=== PATIENT | female | born 1995 | race Caucasian/White ===

== ENCOUNTER 2017-01-06 21:40 | Emergency (ER) | payer SELFPAY ==
[~2017-01-06] VITALS: Ht 157.5 cm; Wt 63.5 kg
[~2017-01-06 21:40] MED LIST: AGM875T PO; PSEU120T50 PO
--- NOTE | 2017-01-06 22:53 | ED EENT ---
History of Present Illness General Chief Complaint: Skin/Wound Problems Stated Complaint: SORE THROAT/ 6 WEEKS Nursing Triage Note: PT TO ED 6 W/ C/O SORE THROAT ONSET LAST NOC. REPORTS WAS TAKING CARE OF A FAMILY MEMBERS CHILD RECENTLY THAT HAD BEEN DX W/ HAND FOOT ET MOUTH. PT ALSO REPORTS SHE IS 6WKS ET HAVING CRAMPING Source: patient Exam Limitations: no limitations (KAYLA AVERY MD) History of Present Illness Time seen by provider: 21:56 (KAYLA AVERY MD) Initial Comments Sherin Casarez is a 21 year old female presenting to the ED for a sore throat. The pain started last night. It woke her up and she was able to drink some water and go back to sleep, but it was still present this morning. It is more on the right side than the left. It hurts all the time and more to swallow food or saliva, but is slightly better when she swallows liquid so she has eaten less than usual today but has continued to drink water. She watched a nephew with hand foot and mouth disease last night, denies other sick contacts. She was treated for strep throat about 2 months ago and symptoms resolved completely. She denies cough, congestion, headache, or shortness of breath. She reports being , , gestational age 5 and 6/7 by LMP of 11/26/16, has an appointment to establish care with Dr. Gutierrez in 3 weeks. She has had nausea related to the but it has not worsened recently. Her cramping has been slightly worse today and she is concerned about it. She has been constipated. (CIRILO SLAUGHTER) Allergies and Home Medications Allergies Coded Allergies: No Known Drug Allergies (Unverified , 04/26/14) Home Medications Amoxicillin 500 Mg Tablet, 1,000 MG PO BID, #40 Prescribed by: KAYLA VILLALPANDO on 01/07/17 0035 [id number]/Iron Fumarate/FA/Dss 1 Each Tablet, 1 EACH PO, (Reported) Polyethylene Glycol 3350 119 Gm Powder, 17 GM PO BID PRN for CONSTIPATION-1ST LINE, #1 Prescribed by: KAYLA VILLALPANDO on 01/07/17 0039 Review of Systems Constitutional: no symptoms reported, No chills, No fever Eyes: No Symptoms Reported Ears: No Symptoms Reported, Denies Pain Nose: no symptoms reported, denies congestion (denies runny nose) Mouth: no symptoms reported, denies pain Throat: pain (right side pain greater than left), painful swallowing, denies difficulty with fluids Respiratory: no symptoms reported, No cough, No dyspnea on exertion, No short of breath Cardiovascular: no symptoms reported, No chest pain Gastrointestinal: No abdominal pain, constipation, No diarrhea, nausea ( attributes to , no acute worsening), No vomiting, other (lower abdominal cramping she associates with , worse today) : Yes LMP: Nov 26, 2016 Musculoskeletal: no symptoms reported Skin: no symptoms reported Neurological: No Symptoms Reported Hematologic/Lymphatic: No Symptoms Reported Immunological/Allergic: no symptoms reported Other denies pain or burning with urination (CIRILO SLAUGHTER) Past Skmntge-Zrxeue-Nrrfgz Hx Patient Social History Alcohol Use: Denies Use Recreational Drug Use: No Smoking Status: Never a Smoker Recent Foreign Travel: No Contact w/Someone Who Travel: No Recent Infectious Disease Expo: No Recent Hopitalizations: No Physical Abuse: No Sexual Abuse: No Mistreated: No Fear: No (KAYLA AVERY MD) Surgeries History of Surgeries: No (KAYLA AVERY MD) Respiratory History of Respiratory Disorde: No (KAYLA AVERY MD) Cardiovascular History of Cardiac Disorders: No (KAYLA AVERY MD) Neurological History of Neurological Disord: No (KAYLA AVERY MD) Reproductive System Hx : 1 Hx Para: 0 Hx Reproductive Disorders: No (KAYLA AVERY MD) Gastrointestinal History of Gastrointestinal Di: No (KAYLA AVERY MD) Musculoskeletal History of Musculoskeletal Dis: No (KAYLA AVERY MD) Endocrine History of Endocrine Disorders: No (KAYLA AVERY MD) Cancer History of Cancer: No (KAYLA AVERY MD) Psychosocial History of Psychiatric Problem: No Suicide Risk Score: 0 (KAYLA AVERY MD) Integumentary History of Skin or Integumenta: No (KAYLA AVERY MD) Blood Transfusions History of Blood Disorders: No Adverse Reaction to a Blood Tr: No (KAYLA AVERY MD) Family Medical History Significant Family History: No Pertinent Family Hx (denies history of diabetes , heart disease, hypertension in mother, father, sister) (CIRILO SLAUGHTER) Physical Exam Vital Signs Vital Sign - Last 12Hours 01/06/17 21:55 Temp 98.2 Pulse 77 Resp 20 B/P (MAP) 124/65 Pulse Ox 98 O2 Delivery Room Air (CIRILO SLAUGHTER) General Appearance: WD/WN, no apparent distress Eyes: bilateral eye normal inspection, bilateral eye PERRL, bilateral eye EOMI Ears: bilateral ear auricle normal, bilateral ear canal normal, bilateral ear TM normal Nose: normal inspection Mouth/Throat: No tonsillar exudate, tonsillar swelling Cardiovascular: regular rate, rhythm, no gallop, no JVD, no murmur Respiratory: lungs clear, normal breath sounds, no respiratory distress, no accessory muscle use Neurologic/Psychiatric: alert, normal mood/affect, oriented x 3 Skin: normal color, warm/dry (CIRILO SLAUGHTER) Progress/Results/Core Measures Results/Orders Lab Results Laboratory Tests Test 01/06/17 22:09 Range/Units Group A Streptococcus Screen NEGATIVE NEGATIVE (CIRILO SLAUGHTER) Vital Signs/I&O Vital Sign - Last 12Hours 01/06/17 21:55 Temp 98.2 Pulse 77 Resp 20 B/P (MAP) 124/65 Pulse Ox 98 O2 Delivery Room Air (CIRILO SLAUGHTER) Blood Pressure Mean: 84 Progress Note : Progress Note I have interviewed, seen, and examined this patient along with Cirilo Ervin, GILMER. I agree with GILMER history, exam, and assessment. On my exam patient was found to have a soft abdomen with normal bowel sounds. She had mild tenderness in the suprapubic and adnexal regions. She denies any vaginal bleeding or unusual discharge. She denies dysuria or hematuria. She has no concern for possible STI's. Ultrasound was not pursued at this time as her pain was mild in nature, she is less than 6 weeks gestational age, and she denied vaginal bleeding. Patient does admit to being constipated. MiraLAX was prescribed. UA was obtained and demonstrated no evidence of urinary tract infection. Oropharynx did demonstrate some erythema and some palatal petechiae. (KAYLA AVERY MD) Departure Impression Impression: Primary Impression: Pharyngitis Qualified Codes: J02.9 - Acute pharyngitis, unspecified Additional Impressions: Pelvic pain affecting Qualified Codes: O26.891 - Other specified related conditions, first trimester; R10.2 - Pelvic and perineal pain Constipation Qualified Codes: K59.00 - Constipation, unspecified Disposition: HOME, SELF-CARE Condition: Improved Departure-Patient Inst. Decision time for Depature: 00:00 (KAYLA AVERY MD) Referrals: NO,LOCAL PHYSICIAN (PCP/Family) Primary Care Physician Patient Instructions: Acute Abdomen (Belly Pain) Add. Discharge Instructions: Drink plenty of clear liquids. Eat a diet high in fruits, vegetables, and whole grains. Avoid excessive meats, cheeses, and processed foods as they may worsen your constipation. Return to care promptly if your symptoms worsen or if he develops new symptoms such as fever, vaginal discharge, or vaginal bleeding. Contact your obstetrical provider to inform them of your discomfort and ask for a sooner appointment. You may use MiraLAX (polyethylene glycol) for constipation once or twice daily. Fill the cap to the line and dissolve the powder in about 8 ounces of water or juice. You may contact your primary care provider or the emergency room on Sunday afternoon to review the throat culture results. If the results are positive, start the antibiotic as prescribed. If you take the antibiotic, replace your toothbrush and any other oral instruments about 5 days after starting antibiotics. All discharge instructions reviewed with patient and/or family. Voiced understanding. Scripts Polyethylene Glycol 3350 (Miralax) 119 Gm Powder 17 GM PO BID Y for CONSTIPATION-1ST LINE, #1 EA Prov: KAYLA AVERY MD 01/07/17 Amoxicillin (Amoxicillin) 500 Mg Tablet 1000 MG PO BID, #40 TAB Prov: KAYLA AVERY MD 01/07/17 Copy Copies To 1: SHAILESH GUTIERREZ MD, JOSHUA T MD Jan 06, 2017 22:53 CIRILO SLAUGHTER Jan 06, 2017 23:10
[2017-01-06] MEDS ORDERED: PREN-53 PO (23:25)
[2017-01-06 23:56] LABS: BILIRUBIN,URINE NEGATIVE (NEGATIVE); KETONES,URINE NEGATIVE (NEGATIVE); LEUKOCYTE ESTERASE ,URINE NEGATIVE (NEGATIVE); NITRITE,URINE NEGATIVE (NEGATIVE); PH,URINE 7 (5-9); PROTEIN,URINE NEGATIVE (NEGATIVE); UROBILINOGEN,URINE NORMAL (NORMAL)
[2017-01-07] MEDS ORDERED: AMOX500T2 PO (00:35)
[2017-01-07 00:39] VITALS: BP 0/0
[2017-01-07] MEDS ORDERED: POLY119P5 PO (00:39)
== END 2017-01-07 00:39 | disposition home or self-care (01) ==
LOC: EDUNIT# 21:40 → ER 21:42
DX: O99.511 Diseases of the respiratory system complicating pregnancy, first trimester (principal); J02.9 Acute pharyngitis, unspecified; O26.891 Other specified pregnancy related conditions, first trimester; R10.2 Pelvic and perineal pain; O99.611 Diseases of the digestive system complicating pregnancy, first trimester; K59.00 Constipation, unspecified; Z3A.01 Less than 8 weeks gestation of pregnancy
CPT/HCPCS: 81000; 84703; 87430; 99282

== ENCOUNTER → 2017-01-10 | Outpatient (CLI) | payer SELFPAY ==
[~2017-01-10] MED LIST changes: +AMOX500T2 PO; +POLY119P5 PO; +PREN-53 PO
--- NOTE | 2017-01-10 17:02 | Diagnostic Imaging Report ---
US OB<14 WKS SNGLE W/TRANSVAG INDICATION: Left pelvic pain with known left pelvic kidney. TECHNIQUE: Grayscale and color Doppler imaging of the pelvis was performed. COMPARISON: None available. FINDINGS: There is a normal gestational sac appropriately positioned at the level of the uterine fundus. An embryo is present within the gestational sac, and a heart rate of 128 beats per minute is noted. Based on crown-rump length, the estimated gestational age is 6 weeks and 4 days. Left lower quadrant pelvic kidney is present. There is no hydronephrosis or shadowing echogenic calculi. IMPRESSION: 1. Single live early intrauterine . 2. Left pelvic kidney without hydronephrosis or shadowing calculi. Dictated by: Dictated on workstation # [id number]
== END ==
LOC: RAD 16:24
PROVIDERS: ATTEND Family Medicine
DX: O26.891 Other specified pregnancy related conditions, first trimester (principal); R10.2 Pelvic and perineal pain; Z3A.01 Less than 8 weeks gestation of pregnancy
CPT/HCPCS: 76801; 76817

== ENCOUNTER 2017-02-13 11:08 | Emergency (ER) | payer MEDICAID ==
[~2017-02-13] VITALS: Ht 157.5 cm; Wt 64.4 kg
--- NOTE | 2017-02-13 11:26 | ED General ---
General Stated Complaint: CHEST DISCOMFORT,N/V, 11WKS PG Source of Information: Patient Exam Limitations: No Limitations History of Present Illness Time Seen by Provider: 11:23 Initial Comments To ER with reports of central chest tightness that awakened her from sleep during the night last night was associated with a little shortness of breath. Her chest discomfort is worsened by deep breathing. She's recently had a sore throat a few days ago which resolved on its own. Today she did start a nonproductive cough. She is 11 weeks . She also has nausea and vomiting and is concerned about dehydration. She is a nonsmoker. She has no personal or family history of DVT. She has no unilateral leg swelling. She denies any abdominal pain, cramping or vaginal bleeding or discharge. She did have an ultrasound at 6 weeks that confirmed intrauterine . Timing/Duration: 1-2 Days Severity: Moderate Associated Systoms: Cough, No Fever/Chills, Nausea/Vomiting Allergies and Home Medications Allergies Coded Allergies: No Known Drug Allergies (Unverified , 04/26/14) Home Medications Amoxicillin 500 Mg Tablet, 1,000 MG PO BID, #40 Prescribed by: KAYLA VILLALPANDO on 01/07/17 0035 Doxylamine/Pyridoxine HCl 1 Each Tablet.dr, 2 EACH PO HS, #30 Prescribed by: KHOA RUELAS on 02/13/17 1236 Hvq171/Iron Fumarate/FA/Dss 1 Each Tablet, 1 EACH PO, (Reported) Polyethylene Glycol 3350 119 Gm Powder, 17 GM PO BID PRN for CONSTIPATION-1ST LINE, #1 Prescribed by: KAYLA VILLALPANDO on 01/07/17 0039 Constitutional: see HPI EENTM: see HPI Respiratory: no symptoms reported Cardiovascular: no symptoms reported Gastrointestinal: nausea Genitourinary: no symptoms reported Musculoskeletal: no symptoms reported Skin: no symptoms reported Psychiatric/Neurological: No Symptoms Reported Hematologic/Lymphatic: No Symptoms Reported (I did) Past Hqdwmfj-Eprtgt-Ucsmwc Hx Patient Social History Recent Foreign Travel: No Contact w/Someone Who Travel: No Recent Hopitalizations: No Surgeries History of Surgeries: No Respiratory History of Respiratory Disorde: No Cardiovascular History of Cardiac Disorders: No Neurological History of Neurological Disord: No Reproductive System Hx Reproductive Disorders: No Gastrointestinal History of Gastrointestinal Di: No Musculoskeletal History of Musculoskeletal Dis: No Endocrine History of Endocrine Disorders: No Cancer History of Cancer: No Psychosocial History of Psychiatric Problem: No Integumentary History of Skin or Integumenta: No Blood Transfusions History of Blood Disorders: No Adverse Reaction to a Blood Tr: No Family Medical History Significant Family History: No Pertinent Family Hx Physical Exam Vital Signs Vital Sign - Last 12Hours 02/13/17 11:16 Temp 99.5 Pulse 104 Resp 18 B/P (MAP) 132/80 Pulse Ox 97 O2 Delivery Room Air Capillary Refill : General Appearance: No Apparent Distress, WD/WN Eyes: Bilateral Eye Normal Inspection, Bilateral Eye PERRL, Bilateral Eye EOMI HEENT: PERRL/EOMI, TMs Normal, Normal ENT Inspection, Pharynx Normal Neck: Full Range of Motion, Normal Inspection, Non Tender Respiratory: Chest Non Tender, Lungs Clear, Normal Breath Sounds, No Accessory Muscle Use, No Crackles, No Pleural Rub, No Wheezing Cardiovascular: Regular Rate, Rhythm, Normal Peripheral Pulses Gastrointestinal: Normal Bowel Sounds, Non Tender, Soft Extremity: Normal Capillary Refill, Normal Inspection Neurologic/Psychiatric: Alert, Oriented x3, No Motor/Sensory Deficits Skin: Normal Color, Warm/Dry Progress/Results/Core Measures Results/Orders Lab Results Laboratory Tests Test 02/13/17 11:25 02/13/17 11:45 Range/Units Urine Color YELLOW Urine Clarity CLEAR Urine pH 7 5-9 Urine Specific [place] 1.010 L 1.016-1.022 Urine Protein NEGATIVE NEGATIVE Urine Glucose (UA) NEGATIVE NEGATIVE Urine Ketones 3+ H NEGATIVE Urine Nitrite NEGATIVE NEGATIVE Urine Bilirubin NEGATIVE NEGATIVE Urine Urobilinogen 1 NORMAL MG/DL Urine Leukocyte Esterase NEGATIVE NEGATIVE Urine RBC (Auto) 1+ H NEGATIVE Urine RBC NONE /HPF Urine WBC 0-2 /HPF Urine Squamous Epithelial Cells 10-25 H /HPF Urine Crystals NONE /LPF Urine Bacteria TRACE /HPF Urine Casts NONE /LPF Urine Mucus NEGATIVE /LPF Urine Culture Indicated NO White Blood Count 11.5 H 4.3-11.0 10^3/uL Red Blood Count 3.91 L 4.35-5.85 10^6/uL Hemoglobin 11.2 L 11.5-16.0 G/DL Hematocrit 33 L 35-52 % Mean Corpuscular Volume 84 80-99 FL Mean Corpuscular Hemoglobin 29 25-34 PG Mean Corpuscular Hemoglobin Concent 34 32-36 G/DL Red Cell Distribution Width 13.5 10.0-14.5 % Platelet Count 220 130-400 10^3/uL Mean Platelet Volume 11.3 H 7.4-10.4 FL Neutrophils (%) (Auto) 81 H 42-75 % Lymphocytes (%) (Auto) 9 L 12-44 % Monocytes (%) (Auto) 10 0-12 % Eosinophils (%) (Auto) 0 0-10 % Basophils (%) (Auto) 0 0-10 % Neutrophils # (Auto) 9.4 H 1.8-7.8 X 10^3 Lymphocytes # (Auto) 1.0 1.0-4.0 X 10^3 Monocytes # (Auto) 1.1 H 0.0-1.0 X 10^3 Eosinophils # (Auto) 0.0 0.0-0.3 10^3/uL Basophils # (Auto) 0.0 0.0-0.1 10^3/uL Sodium Level 134 L 135-145 MMOL/L Potassium Level 3.3 L 3.6-5.0 MMOL/L Chloride Level 104 98-107 MMOL/L Carbon Dioxide Level 21 21-32 MMOL/L Anion Gap 9 5-14 MMOL/L Blood Urea Nitrogen 5 L 7-18 MG/DL Creatinine 0.55 L 0.60-1.30 MG/DL Estimat Glomerular Filtration Rate > 60 BUN/Creatinine Ratio 9 Glucose Level 100 70-105 MG/DL Calcium Level 8.8 8.5-10.1 MG/DL Total Bilirubin 0.3 0.1-1.0 MG/DL Aspartate Amino Transf (AST/SGOT) 12 5-34 U/L Alanine Aminotransferase (ALT/SGPT) 10 0-55 U/L Alkaline Phosphatase 51 40-136 U/L Total Protein 6.7 6.4-8.2 GM/DL Albumin 3.8 3.2-4.5 GM/DL Lipase < 4 L 8-78 U/L My Orders Orders - KHOA RUELAS APRN Cbc With Automated Diff (02/13/17 11:22) Comprehensive Metabolic Panel (02/13/17 11:22) Lipase (02/13/17 11:22) Ua Culture If Indicated (02/13/17 11:22) Saline Lock/Iv-Start (02/13/17 11:22) Lactated Ringers (Lr 1000 Ml Iv Solution (02/13/17 11:30) Antacid Suspension (Mylanta Suspension (02/13/17 11:30) Lidocaine 2% Viscous 15 Ml (Xylocaine Vi (02/13/17 11:30) Ondansetron Injection (Zofran Injectio (02/13/17 11:30) General/Regular (02/13/17 Lunch) Medications Given in ED Current Medications Medications Dose Ordered Sig/Vernell Route Start Time Stop Time Status Last Admin Dose Admin Al Hydrox/Mg Hydrox/Simethicone 30 ml ONCE ONCE PO 02/13/17 11:30 02/13/17 11:31 DC 02/13/17 11:30 30 ML Lidocaine HCl 15 ml ONCE ONCE PO 02/13/17 11:30 02/13/17 11:31 DC 02/13/17 11:30 15 ML Ondansetron HCl 8 mg ONCE ONCE IVP 02/13/17 11:30 02/13/17 11:31 DC 02/13/17 11:40 8 MG Vital Signs/I&O Vital Sign - Last 12Hours 02/13/17 11:16 Temp 99.5 Pulse 104 Resp 18 B/P (MAP) 132/80 Pulse Ox 97 O2 Delivery Room Air Departure Communication (Admissions) Progress Notes 1212-nausea is gone and she would like something to eat. 1237- Dr. Bobby did bedside ultrasound cardiac activity at 165 bpm intrauterine Impression Impression: Primary Impression: Nausea and vomiting during Disposition: 01 HOME, SELF-CARE Condition: Stable Departure-Patient Inst. Decision time for Depature: 12:12 Referrals: SHAILESH GUTIERREZ MD (PCP/Family) Primary Care Physician Patient Instructions: NO INSTRUCTIONS GIVEN Add. Discharge Instructions: 1. Drink plenty of fluids 2. Follow-up with your transitional care manager this week 3. Return to ER for any concerns 4. Pedialyte is a great choice to rehydrate even though it tastes horrible Scripts Doxylamine/Pyridoxine HCl (Lis Russell 10-10 mg Tablet) 1 Each Tablet. 2 EACH PO HS, #30 TAB Prov: KHOA RUELAS APRN 02/13/17 Work/School Note: Work Release Form Date Seen in the Emergency Department: Feb 13, 2017 Return to Work: Feb 15, 2017 Copy Copies To 1: SHAILESH GUTIERREZ MD, PETER J APRN Feb 13, 2017 11:25
[2017-02-13] MEDS ORDERED: ONDANSETRON 4 MG/2 ML (SDV) Z0FRAN IVP ONE (11:30)
[2017-02-13] MEDS ORDERED: ANTACID SUSP 30 ML UDC (MYLANTA) PO ONE (11:30)
[2017-02-13] MEDS ORDERED: LIDOCAINE 2% VISCOUS 15 ML UDC PO ONE (11:30)
[2017-02-13 11:31] LABS: BILIRUBIN,URINE NEGATIVE (NEGATIVE); KETONES,URINE 3+ (NEGATIVE); LEUKOCYTE ESTERASE ,URINE NEGATIVE (NEGATIVE); NITRITE,URINE NEGATIVE (NEGATIVE); PH,URINE 7 (5-9); PROTEIN,URINE NEGATIVE (NEGATIVE); UROBILINOGEN,URINE 1 MG/DL (NORMAL)
[2017-02-13 11:38] LABS: WBC,URINE 0-2 /HPF
[2017-02-13] MEDS: LACTATED RINGERS 1,000 ML IV SCH ×2 (11:40→11:46)
[2017-02-13 11:50] LABS: BASOPHILS % (AUTO) 0 % (0-10); EOSINOPHILS % (AUTO) 0 % (0-10); LYMPHOCYTES % (AUTO) 9 % (12-44); MEAN CORPUSCULAR HEMOGLOBIN 29 PG (25-34); MEAN CORPUSCULAR HGB CONC 34 G/DL (32-36); MEAN CORPUSCULAR VOLUME 84 FL (80-99); MEAN PLATELET VOLUME 11.3 FL (7.4-10.4); MONOCYTES # (AUTO) 1.1 X 10^3 (0.0-1.0); MONOCYTES % (AUTO) 10 % (0-12); NEUTROPHILS # (AUTO) 9.4 X 10^3 (1.8-7.8); NEUTROPHILS % (AUTO) 81 % (42-75); PLATELET COUNT 220 10^3/uL (130-400); RED BLOOD COUNT 3.91 10^6/uL (4.35-5.85); RED CELL DISTRIBUTION WIDTH 13.5 % (10.0-14.5); WHITE BLOOD COUNT 11.5 10^3/uL (4.3-11.0)
[2017-02-13 12:12] LABS: ALANINE AMINOTRANSFERASE 10 U/L (0-55); ALBUMIN 3.8 GM/DL (3.2-4.5); ANION GAP 9 MMOL/L (5-14); ASPARTATE AMINO TRANSFERASE 12 U/L (5-34); BILIRUBIN,TOTAL 0.3 MG/DL (0.1-1.0); BLOOD UREA NITROGEN 5 MG/DL (7-18); BUN/CREATININE RATIO 9; CALCIUM 8.8 MG/DL (8.5-10.1); CARBON DIOXIDE 21 MMOL/L (21-32); CHLORIDE 104 MMOL/L (98-107); CREATININE SERUM 0.55 MG/DL (0.60-1.30); GFR ESTIMATED > 60; GLUCOSE 100 MG/DL (70-105); LIPASE < 4 U/L (8-78); POTASSIUM 3.3 MMOL/L (3.6-5.0); SODIUM 134 MMOL/L (135-145); TOTAL PROTEIN 6.7 GM/DL (6.4-8.2)
[2017-02-13] MEDS ORDERED: DOXY1TAB3 PO (12:36)
[2017-02-13 12:43] VITALS: BP 123/75
== END 2017-02-13 12:49 | disposition home or self-care (01) ==
LOC: EDUNIT# 11:08 → ER 11:11
DX: O21.9 Vomiting of pregnancy, unspecified (principal); Z3A.11 11 weeks gestation of pregnancy
CPT/HCPCS: 36415; 80053; 81000; 83690; 85025

== ENCOUNTER → 2017-04-18 | Outpatient (CLI) | payer MEDICAID ==
[~2017-04-18] MED LIST changes: +DOXY1TAB3 PO
--- NOTE | 2017-04-18 15:59 | Diagnostic Imaging Report ---
INDICATION: survey. TECHNIQUE: Multiple real-time grayscale images were obtained over the gravid uterus. COMPARISON: 01/10/2017. FINDINGS: heart rate is 138 beats per minute. The placenta is anterior. No placenta previa. The cervix is 4.3 cm in length and is closed. Adequate amniotic fluid is seen. The maternal adnexa are obscured by the gravid uterus. No ventriculomegaly. The posterior fossa appears unremarkable. The stomach, cord insertion, spine, bladder, three-vessel cord, and the kidneys appear unremarkable with no definite abnormality. The four-chamber view is not well seen due to position. Biometrical measurements are as follows: Biparietal 4.74 cm, age 20 weeks 3 days. Head circumference 18.08 cm, age 20 weeks 4 days. Abdominal circumference 15.16 cm, age 20 weeks 3 days. Femur length 3.42 cm, age 20 weeks 6 days. Sonographic estimate age: 20 weeks 4 days. Sonographic estimated date of delivery: 09/01/2017. Estimated Weight: 361 gm (+/- 53 gm). LMP percentile: 43%. heart rate: 138 beats per minute. number: 1 of 1. IMPRESSION: The four-chamber view is not well seen. Followup within two weeks is suggested to reevaluate. Dictated by: Dictated on workstation # [id number]
== END ==
LOC: RAD 09:55
PROVIDERS: ATTEND Obstetrics & Gynecology
DX: O99.89 Other specified diseases and conditions complicating pregnancy, childbirth and the puerperium (principal); Q63.2 Ectopic kidney; Z3A.20 20 weeks gestation of pregnancy
CPT/HCPCS: 76805

== ENCOUNTER 2017-07-29 17:09 | Outpatient (CLI) | payer MEDICAID ==
[~2017-07-29] VITALS: Ht 157.5 cm; Wt 81.2 kg
[2017-07-29 17:20] VITALS: BP 125/67
[2017-07-29 17:31] LABS: BILIRUBIN,URINE NEGATIVE (NEGATIVE); CLARITY,URINE SLIGHTLY CLOUDY; COLOR,URINE YELLOW; GLUCOSE, URINE (UA) NEGATIVE (NEGATIVE); KETONES,URINE NEGATIVE (NEGATIVE); LEUKOCYTE ESTERASE ,URINE 1+ (NEGATIVE); NITRITE,URINE NEGATIVE (NEGATIVE); PH,URINE 7 (5-9); PROTEIN,URINE NEGATIVE (NEGATIVE); UROBILINOGEN,URINE NORMAL (NORMAL)
[2017-07-29 17:38] LABS: AMORPHOUS SEDIMENT,UR FEW AMOR URATES /LPF; BACTERIA,URINE TRACE /HPF; SQUAMOUS EPITHELIAL CELL,UR >50 /HPF
[2017-07-29 17:55] VITALS: BP 112/60
--- NOTE | 2017-07-30 12:13 | Physician Query-Final Dx ---
KERA VELEZ 07/30/17 1213: Clinic Account Progress/Dx Physician Query: Please give diagnosis Date of Service Jul 29, 2017 at 17:09 ENOC TADEO DO 07/30/17 1715: Clinic Account Progress/Dx DIAGNOSIS: Diagnosis 35 week IUP Pelvic pressure LE swelling KERA VELEZ Jul 30, 2017 12:13 ENOC TADEO DO Jul 30, 2017 17:15
== END 2017-07-29 18:08 | disposition home or self-care (01) ==
LOC: WSo 17:09 → LDRP 17:09 → WSo 18:08
PROVIDERS: ATTEND Obstetrics & Gynecology
DX: O99.89 Other specified diseases and conditions complicating pregnancy, childbirth and the puerperium (principal); R10.2 Pelvic and perineal pain; M79.89 Other specified soft tissue disorders; Z3A.35 35 weeks gestation of pregnancy
CPT/HCPCS: 81000; 87088; 99212

== ENCOUNTER 2017-08-20 16:59 | Inpatient (IN) | payer MEDICAID ==
[~2017-08-20] VITALS: Ht 157.5 cm; Wt 85.0 kg
[2017-08-20] VITALS (8 sets, daily range): BP systolic 134–161; BP diastolic 76–93
[2017-08-20 18:07] LABS: BASOPHILS % (AUTO) 0 % (0-10); EOSINOPHILS # (AUTO) 0.2 10^3/uL (0.0-0.3); EOSINOPHILS % (AUTO) 2 % (0-10); HEMATOCRIT 31 % (35-52); HEMOGLOBIN 10.4 G/DL (11.5-16.0); LYMPHOCYTES # (AUTO) 1.7 X 10^3 (1.0-4.0); LYMPHOCYTES % (AUTO) 16 % (12-44); MEAN CORPUSCULAR HEMOGLOBIN 27 PG (25-34); MEAN CORPUSCULAR HGB CONC 33 G/DL (32-36); MEAN CORPUSCULAR VOLUME 81 FL (80-99); MEAN PLATELET VOLUME 12.8 FL (7.4-10.4); MONOCYTES # (AUTO) 0.8 X 10^3 (0.0-1.0); MONOCYTES % (AUTO) 7 % (0-12); NEUTROPHILS # (AUTO) 7.9 X 10^3 (1.8-7.8); NEUTROPHILS % (AUTO) 75 % (42-75); PLATELET COUNT 189 10^3/uL (130-400); RED BLOOD COUNT 3.82 10^6/uL (4.35-5.85); RED CELL DISTRIBUTION WIDTH 13.9 % (10.0-14.5); WHITE BLOOD COUNT 10.6 10^3/uL (4.3-11.0)
[2017-08-20 18:22] LABS: ALANINE AMINOTRANSFERASE 9 U/L (0-55); ALBUMIN 3.1 GM/DL (3.2-4.5); ALKALINE PHOSPHATASE 144 U/L (40-136); BILIRUBIN,TOTAL 0.2 MG/DL (0.1-1.0); BUN/CREATININE RATIO 15; CALCIUM 8.7 MG/DL (8.5-10.1); CARBON DIOXIDE 22 MMOL/L (21-32); CHLORIDE 109 MMOL/L (98-107); GFR ESTIMATED > 60; GLUCOSE 74 MG/DL (70-105); SODIUM 139 MMOL/L (135-145); TOTAL PROTEIN 5.6 GM/DL (6.4-8.2); URIC ACID 6.2 MG/DL (2.6-7.2)
[2017-08-20 18:31] LABS: BAND NEUTROPHILS 0 %; BASOPHILS % (MANUAL) 0 %; EOSINOPHILS % (MANUAL) 3 %; LYMPHOCYTES % (MANUAL) 22 %; MONOCYTES % (MANUAL) 14 %; NEUTROPHILS % (MANUAL) 61 %; RBC MORPH NORMAL
[2017-08-20] MEDS ORDERED: D5 LR IV SOLUTION 1,000 ML IV ONE (20:33)
[2017-08-20] MEDS ORDERED: MISOPROSTOL 100 MCG (CYTOTEC) TAB PO ONE (20:45)
--- NOTE | 2017-08-20 20:54 | Diagnostic Imaging Report ---
Exam: Ultrasound OB limited. Date: 08/20/2017. Indication: 22-year-old female, high protein to creatinine ratio. Comparison: 04/18/2017. 01/10/2017. Findings: There is a single living intrauterine . heart rate is identified at 134 beats per minute. The amniotic fluid index is normal and measures 14.0. Estimated weight based on today's ultrasound measurements is 3352 g. The placenta is anterior. The fetus is in cephalic presentation. The biophysical profile score is reported as 4/8 by the ambulatory technologist with 0 out of 2 for breathing and movement. IMPRESSION: 1. biophysical profile score reported by the ambulatory technologist as 4/8. 2. Single living intrauterine . 3. Normal amniotic fluid index. Dictated by: Dictated on workstation # [id number]
[2017-08-20] MEDS: D5 LR IV SOLUTION 1,000 ML IV SCH (21:00)
--- OUTSIDE RECORDS SUMMARY | 2017-08-20 21:17 | XMS REPORT | Continuity of Care Document ---
Author Author [facility] Organization [facility] Address Unknown Phone Unavailable Allergies Active Description Code Type Severity Reaction Onset Reported/Identified Relationship to Patient Clinical Status Yes No Known Drug Allergies [id number] Drug Allergy Unknown N/A 04/26/2014 Medications There is no data. Problems Date Dx Coded Attending Type Code Diagnosis Diagnosed By 11/26/2011 Ot 592.9 URINARY CALCULUS NOS 04/26/2014 Ot 592.9 04/26/2014 Ot 592.9 04/26/2014 KHOA RUELAS APRN Ot 382.9 OTITIS MEDIA NOS 04/26/2014 KHOA RUELAS APRN Ot 388.70 OTALGIA NOS 04/26/2014 Ot 592.9 05/21/2014 Ot 592.9 06/08/2014 Ot 592.9 06/08/2014 Ot 592.9 06/17/2014 Ot 592.9 06/18/2014 Ot 592.9 01/06/2017 Ot 592.9 URINARY CALCULUS NOS 01/07/2017 KAYLA AVERY MD Ot J02.9 ACUTE PHARYNGITIS, UNSPECIFIED 01/07/2017 KAYLA AVERY MD Ot K59.00 CONSTIPATION, UNSPECIFIED 01/07/2017 KAYLA AVERY MD Ot O26.891 OTH RELATED CONDITIONS, FIRST 01/07/2017 KAYLA AVERY MD Ot O99.511 DISEASES OF THE RESP SYS COMP , 01/07/2017 KAYLA AVERY MD Ot O99.611 DISEASES OF THE DGSTV SYS COMP 01/07/2017 KAYLA AVERY MD Ot R10.2 PELVIC AND PERINEAL PAIN 01/07/2017 KAYLA AVERY MD Ot Z3A.01 LESS THAN 8 WEEKS GESTATION OF 01/08/2017 KAYLA AVERY MD Ot J02.9 ACUTE PHARYNGITIS, UNSPECIFIED 01/08/2017 KAYLA AVERY MD Ot K59.00 CONSTIPATION, UNSPECIFIED 01/08/2017 KAYLA AVERY MD Ot O26.891 OT RELATED CONDITIONS, FIRST 01/08/2017 KAYLA AVERY MD Ot O99.511 DISEASES OF THE RESP SYS COMP , 01/08/2017 KAYLA AVERY MD Ot O99.611 DISEASES OF THE DGSTV SYS COMP 01/08/2017 KAYLA AVERY MD Ot R10.2 PELVIC AND PERINEAL PAIN 01/08/2017 KAYLA AVERY MD Ot Z3A.01 LESS THAN 8 WEEKS GESTATION OF 01/16/2017 SHAILESH GUTIERREZ MD Ot O26.891 OT RELATED CONDITIONS, FIRST 01/16/2017 SHAILESH GUTIERREZ MD Ot R10.2 PELVIC AND PERINEAL PAIN 01/16/2017 SHAILESH GUTIERREZ MD Ot Z3A.01 LESS THAN 8 WEEKS GESTATION OF 02/06/2017 Ot 592.9 URINARY CALCULUS NOS 02/06/2017 SHAILESH GUTIERREZ MD Ot O26.891 OT RELATED CONDITIONS, FIRST 02/06/2017 SHAILESH GUTIERREZ MD Ot R10.2 PELVIC AND PERINEAL PAIN 02/06/2017 SHAILESH GUTIERREZ MD Ot Z3A.01 LESS THAN 8 WEEKS GESTATION OF 02/13/2017 Ot 592.9 URINARY CALCULUS NOS 02/13/2017 SHAILESH GUTIERREZ MD Ot O26.891 OT RELATED CONDITIONS, FIRST 02/13/2017 SHAILESH GUTIERREZ MD Ot R10.2 PELVIC AND PERINEAL PAIN 02/13/2017 SHAILESH GUTIERREZ MD Ot Z3A.01 LESS THAN 8 WEEKS GESTATION OF 02/13/2017 KHOA RUELAS APRN Ot O21.9 VOMITING OF , UNSPECIFIED 02/13/2017 KHOA RUELAS APRN Ot R07.89 OTHER CHEST PAIN 02/13/2017 KHOA RUELAS APRN Ot Z3A.11 11 WEEKS GESTATION OF 02/14/2017 SHAILESH GUTIERREZ MD Ot O26.891 OTH RELATED CONDITIONS, FIRST 02/14/2017 SHAILESH GUTIERREZ MD Ot R10.2 PELVIC AND PERINEAL PAIN 02/14/2017 SHAILESH GUTIERREZ MD Ot Z3A.01 LESS THAN 8 WEEKS GESTATION OF 02/14/2017 KHOA RUELAS [employer] TENDER Ot O21.9 VOMITING OF , UNSPECIFIED 02/14/2017 KHOA RUELAS [employer] T[employer] Ot R07.89 OTHER CHEST PAIN 02/14/2017 KHOA RUELAS [employer] T[employer] Ot Z3A.11 11 WEEKS GESTATION OF 02/21/2017 SHAILESH GUTIERREZ MD Ot O26.891 OT RELATED CONDITIONS, FIRST 02/21/2017 SHAILESH GUTIERREZ MD Ot R10.2 PELVIC AND PERINEAL PAIN 02/21/2017 SHAILESH GUTIERREZ MD Ot Z3A.01 LESS THAN 8 WEEKS GESTATION OF 04/14/2017 Ot 592.9 URINARY CALCULUS NOS 04/14/2017 SHAILESH GUTIERREZ MD Ot O26.891 OT RELATED CONDITIONS, FIRST 04/14/2017 SHAILESH GUTIERREZ MD Ot R10.2 PELVIC AND PERINEAL PAIN 04/14/2017 SHAILESH GUTIERREZ MD Ot Z3A.01 LESS THAN 8 WEEKS GESTATION OF 05/02/2017 ENOC TADEO DO Ot O99.89 OT DISEASES AND CONDITIONS COMPL PREG/C 05/02/2017 YAMILETHECH ENOC GANDHI Ot 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 05/02/2017 ENOC TADEO DO Ot Z3A.20 20 WEEKS GESTATION OF 07/29/2017 SHAILESH GUTIERREZ MD Ot O26.891 OT RELATED CONDITIONS, FIRST 07/29/2017 SHAILESH GUTIERREZ MD Ot R10.2 PELVIC AND PERINEAL PAIN 07/29/2017 SHAILESH GUTIERREZ MD Ot Z3A.01 LESS THAN 8 WEEKS GESTATION OF 07/29/2017 ENOC TADEO DO Ot O99.89 OT DISEASES AND CONDITIONS COMPL PREG/C 07/29/2017 YAMILETHECH ENOC GANDHI Ot 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 07/29/2017 ENOC TAEDO DO Ot Z3A.20 20 WEEKS GESTATION OF 07/29/2017 FENECH DOENOC Ot M79.89 OTHER SPECIFIED SOFT TISSUE DISORDERS 07/29/2017 YAMILETHECH ENOC GANDHI Ot O99.89 OTH DISEASES AND CONDITIONS COMPL PREG/C 07/29/2017 YAMILETHECH DOENOC Ot R10.2 PELVIC AND PERINEAL PAIN 07/29/2017 YAMILETHECH EONC GANDHI Ot Z3A.35 35 WEEKS GESTATION OF 07/31/2017 YAMILETHECH ENOC GANDHI Ot M79.89 OTHER SPECIFIED SOFT TISSUE DISORDERS 07/31/2017 YAMILETHECH DOENOC Ot O99.89 OTH DISEASES AND CONDITIONS COMPL PREG/C 07/31/2017 YAMILETHECH DOENOC Ot R10.2 PELVIC AND PERINEAL PAIN 07/31/2017 FENECH DOENOC Ot Z3A.35 35 WEEKS GESTATION OF 07/31/2017 YAMILETHECH ENOC GANDHI Ot M79.89 OTHER SPECIFIED SOFT TISSUE DISORDERS 07/31/2017 YAMILETHECH DOENOC Ot O99.89 OTH DISEASES AND CONDITIONS COMPL PREG/C 07/31/2017 YAMILETHECH ENOC GANDHI Ot R10.2 PELVIC AND PERINEAL PAIN 07/31/2017 YAMILETHECH ENOC GANDHI Ot Z3A.35 35 WEEKS GESTATION OF Procedures There is no data. Results Test Result Range Streptococcus pyogenes antigen detection - 01/06/17 22:09 Streptococcus pyogenes antigen detection NEGATIVE NEGATIVE Bacterial throat culture - 01/06/17 22:09 Bacterial throat culture NBS NRG Urine beta human chorionic gonadotropin (hCG) measurement - 01/06/17 23:41 Urine beta human chorionic gonadotropin (hCG) measurement POSITIVE NEGATIVE Complete urinalysis with reflex to culture - 01/06/17 23:41 Urine color determination YELLOW NRG Urine clarity determination SLIGHTLY CLOUDY NRG Urine pH measurement by test strip 7 5-9 Specific gravity of urine by test strip 1.010 1.016- 1.022 Urine protein assay by test strip, semi-quantitative NEGATIVE NEGATIVE Urine glucose detection by automated test strip NEGATIVE NEGATIVE Erythrocytes detection in urine sediment by light microscopy NEGATIVE NEGATIVE Urine ketones detection by automated test strip NEGATIVE NEGATIVE Urine nitrite detection by test strip NEGATIVE NEGATIVE Urine total bilirubin detection by test strip NEGATIVE NEGATIVE Urine urobilinogen measurement by automated test strip (mass/volume) NORMAL NORMAL Urine leukocyte esterase detection by dipstick NEGATIVE NEGATIVE Automated urine sediment erythrocyte count by microscopy (number/high power field) NONE NRG Automated urine sediment leukocyte count by microscopy (number/high power field ) NONE NRG Bacteria detection in urine sediment by light microscopy NEGATIVE NRG Squamous epithelial cells detection in urine sediment by light microscopy 2-5 NRG Crystals detection in urine sediment by light microscopy NONE NRG Casts detection in urine sediment by light microscopy NONE NRG Mucus detection in urine sediment by light microscopy SMALL NRG Complete urinalysis with reflex to culture NO NRG Complete urinalysis with reflex to culture - 02/13/17 11:25 Urine color determination YELLOW NRG Urine clarity determination CLEAR NRG Urine pH measurement by test strip 7 5-9 Specific gravity of urine by test strip 1.010 1.016- 1.022 Urine protein assay by test strip, semi-quantitative NEGATIVE NEGATIVE Urine glucose detection by automated test strip NEGATIVE NEGATIVE Erythrocytes detection in urine sediment by light microscopy 1+ NEGATIVE Urine ketones detection by automated test strip 3+ NEGATIVE Urine nitrite detection by test strip NEGATIVE NEGATIVE Urine total bilirubin detection by test strip NEGATIVE NEGATIVE Urine urobilinogen measurement by automated test strip (mass/volume) 1 mg/dL NORMAL Urine leukocyte esterase detection by dipstick NEGATIVE NEGATIVE Automated urine sediment erythrocyte count by microscopy (number/high power field) NONE NRG Automated urine sediment leukocyte count by microscopy (number/high power field ) [HPF] NRG Bacteria detection in urine sediment by light microscopy TRACE NRG Squamous epithelial cells detection in urine sediment by light microscopy 10-25 NRG Crystals detection in urine sediment by light microscopy NONE NRG Casts detection in urine sediment by light microscopy NONE NRG Mucus detection in urine sediment by light microscopy NEGATIVE NRG Complete urinalysis with reflex to culture NO NRG Complete blood count (CBC) with automated white blood cell (WBC) differential - 02/13/17 11:45 Blood leukocytes automated count (number/volume) 11.5 10*3/uL 4.3-11.0 Blood erythrocytes automated count (number/volume) 3.91 10*6/uL 4.35-5.85 Venous blood hemoglobin measurement (mass/volume) 11.2 g/dL 11.5-16.0 Blood hematocrit (volume fraction) 33 % 35-52 Automated erythrocyte mean corpuscular volume 84 [foz_us] 80-99 Automated erythrocyte mean corpuscular hemoglobin (mass per erythrocyte) 29 pg 25-34 Automated erythrocyte mean corpuscular hemoglobin concentration measurement ( mass/volume) 34 g/dL 32-36 Automated erythrocyte distribution width ratio 13.5 % 10.0-14.5 Automated blood platelet count (count/volume) 220 10*3/uL 130-400 Automated blood platelet mean volume measurement 11.3 [foz_us] 7.4-10.4 Automated blood neutrophils/100 leukocytes 81 % 42-75 Automated blood lymphocytes/100 leukocytes 9 % 12-44 Blood monocytes/100 leukocytes 10 % 0-12 Automated blood eosinophils/100 leukocytes 0 % 0-10 Automated blood basophils/100 leukocytes 0 % 0-10 Blood neutrophils automated count (number/volume) 9.4 10*3 1.8-7.8 Blood lymphocytes automated count (number/volume) 1.0 10*3 1.0-4.0 Blood monocytes automated count (number/volume) 1.1 10*3 0.0-1.0 Automated eosinophil count 0.0 10*3/uL 0.0-0.3 Automated blood basophil count (count/volume) 0.0 10*3/uL 0.0-0.1 Comprehensive metabolic panel - 02/13/17 11:45 Serum or plasma sodium measurement (moles/volume) 134 mmol/L 135-145 Serum or plasma potassium measurement (moles/volume) 3.3 mmol/L 3.6-5.0 Serum or plasma chloride measurement (moles/volume) 104 mmol/L 98-107 Carbon dioxide 21 mmol/L 21-32 Serum or plasma anion gap determination (moles/volume) 9 mmol/L 5-14 Serum or plasma urea nitrogen measurement (mass/volume) 5 mg/dL 7-18 Serum or plasma creatinine measurement (mass/volume) 0.55 mg/dL 0.60-1.30 Serum or plasma urea nitrogen/creatinine mass ratio 9 NRG Serum or plasma creatinine measurement with calculation of estimated glomerular filtration rate > NRG Serum or plasma glucose measurement (mass/volume) 100 mg/dL 70-105 Serum or plasma calcium measurement (mass/volume) 8.8 mg/dL 8.5-10.1 Serum or plasma total bilirubin measurement (mass/volume) 0.3 mg/dL 0.1-1.0 Serum or plasma alkaline phosphatase measurement (enzymatic activity/volume) 51 U/L 40-136 Serum or plasma aspartate aminotransferase measurement (enzymatic activity/ volume) 12 U/L 5-34 Serum or plasma alanine aminotransferase measurement (enzymatic activity/volume ) 10 U/L 0-55 Serum or plasma protein measurement (mass/volume) 6.7 g/dL 6.4-8.2 Serum or plasma albumin measurement (mass/volume) 3.8 g/dL 3.2-4.5 Lipase - 02/13/17 11:45 Lipase < U/L 8-78 Complete urinalysis with reflex to culture - 07/29/17 17:20 Urine color determination YELLOW NRG Urine clarity determination SLIGHTLY CLOUDY NRG Urine pH measurement by test strip 7 5-9 Specific gravity of urine by test strip 1.010 1.016- 1.022 Urine protein assay by test strip, semi-quantitative NEGATIVE NEGATIVE Urine glucose detection by automated test strip NEGATIVE NEGATIVE Erythrocytes detection in urine sediment by light microscopy NEGATIVE NEGATIVE Urine ketones detection by automated test strip NEGATIVE NEGATIVE Urine nitrite detection by test strip NEGATIVE NEGATIVE Urine total bilirubin detection by test strip NEGATIVE NEGATIVE Urine urobilinogen measurement by automated test strip (mass/volume) NORMAL NORMAL Urine leukocyte esterase detection by dipstick 1+ NEGATIVE Automated urine sediment erythrocyte count by microscopy (number/high power field) NONE NRG Automated urine sediment leukocyte count by microscopy (number/high power field ) [HPF] NRG Bacteria detection in urine sediment by light microscopy TRACE NRG Squamous epithelial cells detection in urine sediment by light microscopy >50 NRG Crystals detection in urine sediment by light microscopy NONE NRG Casts detection in urine sediment by light microscopy NONE NRG Mucus detection in urine sediment by light microscopy NEGATIVE NRG Complete urinalysis with reflex to culture NO NRG Amorphous sediment detection in urine sediment by light microscopy FEW KELLY URATES NRG Bacterial urine culture - 07/29/17 17:20 URINE CULTURE RESULTS <10,000/ML NRG Urine protein/creatinine mass ratio - 08/20/17 17:15 Urine protein measurement (mass/volume) 82 mg/dL 6-12 Urine creatinine measurement (mass/volume) 130 mg/dL 30- 125 Urine protein/creatinine mass ratio 0.63 NRG Blood CBC with ordered manual differential panel - 08/20/17 17:50 Blood leukocytes automated count (number/volume) 10.6 10*3/uL 4.3-11.0 Blood erythrocytes automated count (number/volume) 3.82 10*6/uL 4.35-5.85 Venous blood hemoglobin measurement (mass/volume) 10.4 g/dL 11.5-16.0 Blood hematocrit (volume fraction) 31 % 35-52 Automated erythrocyte mean corpuscular volume 81 [foz_us] 80-99 Automated erythrocyte mean corpuscular hemoglobin (mass per erythrocyte) 27 pg 25-34 Automated erythrocyte mean corpuscular hemoglobin concentration measurement ( mass/volume) 33 g/dL 32-36 Automated erythrocyte distribution width ratio 13.9 % 10.0-14.5 Automated blood platelet count (count/volume) 189 10*3/uL 130-400 Automated blood platelet mean volume measurement 12.8 [foz_us] 7.4-10.4 Automated blood neutrophils/100 leukocytes 75 % 42-75 Automated blood lymphocytes/100 leukocytes 16 % 12-44 Blood monocytes/100 leukocytes 14 % NRG Automated blood eosinophils/100 leukocytes 2 % 0-10 Automated blood basophils/100 leukocytes 0 % 0-10 Blood neutrophils automated count (number/volume) 7.9 10*3 1.8-7.8 Blood lymphocytes automated count (number/volume) 1.7 10*3 1.0-4.0 Blood monocytes automated count (number/volume) 0.8 10*3 0.0-1.0 Automated eosinophil count 0.2 10*3/uL 0.0-0.3 Automated blood basophil count (count/volume) 0.0 10*3/uL 0.0-0.1 Manual blood segmented neutrophils/100 leukocytes 61 % NRG Blood band neutrophils/100 leukocytes 0 % NRG Manual blood lymphocytes/100 leukocytes 22 % NRG Manual eosinophils/100 leukocytes in nose 3 % NRG Manual blood basophils/100 leukocytes 0 % NRG Blood erythrocyte morphology finding identification NORMAL [facility] Comprehensive metabolic panel - 08/20/17 17:50 Serum or plasma sodium measurement (moles/volume) 139 mmol/L 135-145 Serum or plasma potassium measurement (moles/volume) 4.0 mmol/L 3.6-5.0 Serum or plasma chloride measurement (moles/volume) 109 mmol/L 98-107 Carbon dioxide 22 mmol/L 21-32 Serum or plasma anion gap determination (moles/volume) 8 mmol/L 5-14 Serum or plasma urea nitrogen measurement (mass/volume) 9 mg/dL 7-18 Serum or plasma creatinine measurement (mass/volume) 0.60 mg/dL 0.60-1.30 Serum or plasma urea nitrogen/creatinine mass ratio 15 NRG Serum or plasma creatinine measurement with calculation of estimated glomerular filtration rate > NRG Serum or plasma glucose measurement (mass/volume) 74 mg/dL 70-105 Serum or plasma calcium measurement (mass/volume) 8.7 mg/dL 8.5-10.1 Serum or plasma total bilirubin measurement (mass/volume) 0.2 mg/dL 0.1-1.0 Serum or plasma alkaline phosphatase measurement (enzymatic activity/volume) 144 U/L 40-136 Serum or plasma aspartate aminotransferase measurement (enzymatic activity/ volume) 11 U/L 5-34 Serum or plasma alanine aminotransferase measurement (enzymatic activity/volume ) 9 U/L 0-55 Serum or plasma protein measurement (mass/volume) 5.6 g/dL 6.4-8.2 Serum or plasma albumin measurement (mass/volume) 3.1 g/dL 3.2-4.5 Serum or plasma uric acid measurement (mass/volume) - 08/20/17 17:50 Serum or plasma uric acid measurement (mass/volume) 6.2 mg/dL 2.6-7.2 Encounters ACCT No. Visit Date/Time Discharge Status Pt. Type Provider Facility Loc./Unit Complaint [id number] 07/29/2017 17:09:00 07/29/2017 18:08:00 DIS Outpatient ENOC TADEO DO [facility] WSo PRESSURE,SWELLING [id number] 04/18/2017 09:55:00 04/18/2017 23:59:59 CLS Outpatient ENOC TADEO DO [facility] RAD , PELVIC KIDNEY [id number] 02/13/2017 11:11:00 02/13/2017 12:49:00 DIS Emergency KHOA RUELAS APRN [facility] ER CHEST DISCOMFORT,N/V, 11WKS PG [id number] 01/10/2017 16:24:00 01/10/2017 23:59:59 CLS Outpatient SHAILESH GUTIERREZ MD [facility] RAD Z34.90,R10.2 [id number] 01/06/2017 21:42:00 01/07/2017 00:39:00 DIS Emergency GENA GIANG, KAYLA Bates [facility] ER SORE THROAT/ 6 WEEKS [id number] 04/26/2014 21:55:00 04/26/2014 22:25:00 DIS Emergency KHOA RUELAS APRN [facility] ER EAR PAIN [id number] 08/20/2017 20:35:00 ACT Inpatient ENOC TADEO DO [facility] LDRP LABOR AND DELIVERY [id number] 11/27/2011 00:00:00 Document Registration [id number] 09/04/2011 07:59:00 Document Registration
--- OUTSIDE RECORDS SUMMARY | 2017-08-20 21:17 | XMS REPORT ---
Author Author CAYLA LOPEZ [facility] Address [address] [place] [address] Care Team Providers Care Contract Negotiator Name Role Phone CAYLA LOPEZ Unavailable PROBLEMS Type Condition ICD9-CM Code [id number] Code Onset Dates Condition Status SNOMED Code Problem Subclinical hypothyroidism E03.9 Active 31990158 Problem Pelvic kidney Q63.2 Active 00541796 Problem Need for immunization against rubella alone Z23 Active [id number] ALLERGIES No Information ENCOUNTERS Encounter Location Date Diagnosis [place] [id number] [place] [phone] Jun, [place] [id number] [place] [phone]- 8011 Jan, [place] [id number] [place] [address]37- 3553 Jan, 10 weeks gestation of Z3A.10 ; Subclinical hypothyroidism E03.9 and Pelvic kidney Q63.2 [place] [id number] [place] [address] 56618- 4016 18 Dec, 2016 Subclinical hypothyroidism E03.9 [place] [id number] [place] [address] 83432- 3282 15 Dec, 2016 Subclinical hypothyroidism E03.9 [place] [id number] [place] [address] 72[address]- 26[address] 14 Dec, 2016 Elevated TSH R94.6 and First trimester Z34.90 [place] [id number] [place] [address] 30155- 7110 13 Dec, 2016 First trimester Z34.90 ; Other specified related conditions, first trimester O26.891 and Pelvic and perineal pain R10.2 [place] [id number] [place] [address] Dec, [facility] [address] [facility] [id number] [address] Dec, [facility] [address] [facility] [id number] [place] [phone] Nov, test positive Z32.01 IMMUNIZATIONS No Known Immunizations SOCIAL HISTORY Never Assessed REASON FOR VISIT test (walk-in) PLAN OF CARE VITAL SIGNS MEDICATIONS Unknown Medications RESULTS No Results PROCEDURES Procedure Date Ordered Result Body Site URINE TEST Dec 27, 2016 INSTRUCTIONS MEDICATIONS ADMINISTERED No Known Medications MEDICAL (GENERAL) HISTORY Type Description Date Medical History Pelvic kidney-left. Dx at age 11. Medical History Kidney stones
--- OUTSIDE RECORDS SUMMARY | 2017-08-20 21:17 | XMS REPORT ---
Author Author ELVIRA CHAVEZ Organization [facility] Address [address] [place] [address] Care Team Providers Care Utility Worker [employer] Name Role Phone ELVIRA CHAVEZ Unavailable PROBLEMS Type Condition ICD9-CM Code [id number] Code Onset Dates Condition Status SNOMED Code Problem Subclinical hypothyroidism E03.9 Active 33029277 Problem Pelvic kidney Q63.2 Active 52776429 Problem Need for immunization against rubella alone Z23 Active 759928929 ALLERGIES No Known Allergies ENCOUNTERS Encounter Location Date Diagnosis [place] [id number] [place] [phone] Jun, [place] [id number] [place] [address]61- [address] Jan, [place] [address] [address] 12 Jan, 2017 10 weeks gestation of Z3A.10 ; Subclinical hypothyroidism E03.9 and Pelvic kidney Q63.2 [place] [id number] [place] [address] 67096- 6897 18 Dec, 2016 Subclinical hypothyroidism E03.9 [place] [id number] [place] [address] 93272- 4078 15 Dec, 2016 Subclinical hypothyroidism E03.9 [place] [id number] [place] [address] 57257- 7193 14 Dec, 2016 Elevated TSH R94.6 and First trimester Z34.90 [place] [id number] [place] [address] 59012- 4616 13 Dec, 2016 First trimester Z34.90 ; Other specified related conditions, first trimester O26.891 and Pelvic and perineal pain R10.2 [place] [address] [facility] [id number] [place] [address] Dec, [facility] [address] [facility] [id number] [place] [address] Dec, [facility] [address] [facility] [id number] [place] [address] Nov, test positive Z32.01 IMMUNIZATIONS No Known Immunizations SOCIAL HISTORY Never Assessed REASON FOR VISIT OB Flowsheet History-HESHAM Klein PLAN OF CARE VITAL SIGNS MEDICATIONS Unknown Medications RESULTS No Results PROCEDURES No Known procedures INSTRUCTIONS MEDICATIONS ADMINISTERED No Known Medications MEDICAL (GENERAL) HISTORY Type Description Date Medical History Pelvic kidney-left. Dx at age 11. Medical History Kidney stones
[2017-08-20] MEDS ORDERED: CATHETER FLUSH 10 ML SYR IV SCH (22:00)
[2017-08-21] VITALS (60 sets, daily range): BP systolic 131–175; BP diastolic 8–103
[2017-08-21] MEDS ORDERED: MISOPROSTOL 100 MCG (CYTOTEC) TAB PO SCH (00:45)
[2017-08-21] MEDS: D5 LR IV SOLUTION 1,000 ML IV SCH ×2 (01:21→09:26)
--- NOTE | 2017-08-21 08:50 | History & Physical-OB ---
OB - Chief Complaint & HPI Date/Time Date of Admission: Date of Admission: Aug 20, 2017 at 8:35 pm Time Seen by Provider: 08:20 Chief Complaint/History OB-Reason for Admission/Chief: Medical Complication (Preeclampsia) Hx : 1 Hx Para: 0 Expected Date of Delivery: September 01, 2017 Gestational Age in Weeks: 38 Gestational Age in Days: 2 Indication for induction: medical complication Admission Nurse Assessment Rev: Yes History of Labs O pos Antibody neg RI RPR NR HBsAg NR HIV NR GC neg GBS neg Allergies and Home Medications Allergies Coded Allergies: No Known Drug Allergies (Unverified , 04/26/14) Patient Home Medication List Home Medication List Reviewed: Yes OB - History Hx of Present Care: Yes Ultrasounds: Normal mid trimester US Obstetrical Complications: Pre-eclampsia Medical Complications: Other (pelvic kidney) Obstetrical History Hx : 1 Hx Para: 0 Hx Total # of Abortions (Spona: 0 Delivery History Hx Blood Disorders: No Adverse Rxn to Tranfusion: No Patient Past Medical History recurrent UTI, Pelvic kidney, hx of migraines Social History/Family History HIV/AIDS: No Recent Infectious Disease Expo: No Sexually Transmitted Disease: No Alcohol Use: Denies Use Recreational Drug Use: No Immunizations Hepatitis A: Yes Hepatitis B: Yes OB - Admission Exam Physical Exam Vitals: Vital Signs 08/21/17 08/21/17 03:16 06:23 Temp 98.1 Pulse 74 Resp 16 B/P (MAP) 169/94 (119) O2 Delivery Room Air HEENT: NCAT Heart: Rhythm Normal Lungs: Clear Abdomen: Gravid Extremities: Normal Reflexes: Normal Cervical Dilatation: Fingertip Effacement: 75% Station: -1 Membranes: Intact Heart Rate: 130's Accelerations: Accelerations Present Decelerations: No Decelerations Short Term Variability: Present Psych Rn Variability: Average (6-25) Contractions on Admission: >10 Minutes Apart Intensity: Mild Labs Laboratory Tests Test 08/20/17 17:15 08/20/17 17:50 Range/Units Urine Protein 82 H 6-12 MG/DL Urine Creatinine 130 H 30-125 MG/DL Urine Protein/Creatinine Ratio 0.63 White Blood Count 10.6 4.3-11.0 10^3/uL Red Blood Count 3.82 L 4.35-5.85 10^6/uL Hemoglobin 10.4 L 11.5-16.0 G/DL Hematocrit 31 L 35-52 % Mean Corpuscular Volume 81 80-99 FL Mean Corpuscular Hemoglobin 27 25-34 PG Mean Corpuscular Hemoglobin Concent 33 32-36 G/DL Red Cell Distribution Width 13.9 10.0-14.5 % Platelet Count 189 130-400 10^3/uL Mean Platelet Volume 12.8 H 7.4-10.4 FL Neutrophils (%) (Auto) 75 42-75 % Lymphocytes (%) (Auto) 16 12-44 % Monocytes (%) (Auto) 7 0-12 % Eosinophils (%) (Auto) 2 0-10 % Basophils (%) (Auto) 0 0-10 % Neutrophils # (Auto) 7.9 H 1.8-7.8 X 10^3 Lymphocytes # (Auto) 1.7 1.0-4.0 X 10^3 Monocytes # (Auto) 0.8 0.0-1.0 X 10^3 Eosinophils # (Auto) 0.2 0.0-0.3 10^3/uL Basophils # (Auto) 0.0 0.0-0.1 10^3/uL Neutrophils % (Manual) 61 % Lymphocytes % (Manual) 22 % Monocytes % (Manual) 14 % Eosinophils % (Manual) 3 % Basophils % (Manual) 0 % Band Neutrophils 0 % Blood Morphology Comment NORMAL Sodium Level 139 135-145 MMOL/L Potassium Level 4.0 3.6-5.0 MMOL/L Chloride Level 109 H 98-107 MMOL/L Carbon Dioxide Level 22 21-32 MMOL/L Anion Gap 8 5-14 MMOL/L Blood Urea Nitrogen 9 7-18 MG/DL Creatinine 0.60 0.60-1.30 MG/DL Estimat Glomerular Filtration Rate > 60 BUN/Creatinine Ratio 15 Glucose Level 74 70-105 MG/DL Uric Acid 6.2 2.6-7.2 MG/DL Calcium Level 8.7 8.5-10.1 MG/DL Total Bilirubin 0.2 0.1-1.0 MG/DL Aspartate Amino Transf (AST/SGOT) 11 5-34 U/L Alanine Aminotransferase (ALT/SGPT) 9 0-55 U/L Alkaline Phosphatase 144 H 40-136 U/L Total Protein 5.6 L 6.4-8.2 GM/DL Albumin 3.1 L 3.2-4.5 GM/DL OB - Assessment/Plan/Diagnosis Assessment Assessment: induction of labor Admission Dx 22 yo @ 38.2 weeks Preeclampsia BPP 4/8 Pelvic kidney GBS neg Admission Status: Inpatient Order (span 2 midnights) Reason for Inpatient Admission: Induction of labor Plan Plan: Induction Induction Method: per Misoprostol Protocol Other Plan Will AROM this AM, clear fluid at time of rupture. Consider MgSO4 if BP continues to climb. Pitocin augmentation, and likely epidural placement at patient request. ENOC TADEO DO Aug 21, 2017 8:50 am
[2017-08-21] MEDS ORDERED: OXYTOCIN/NORMAL SALINE 500 ML IV ONE (09:33)
[2017-08-21] MEDS ORDERED: SUFENTA 0.6MCG/ML BUPIVA 0.125 100 ML ONE (09:33)
[2017-08-21] MEDS ORDERED: LACTATED RINGERS 1,000 ML IV ONE (09:33)
[2017-08-21] MEDS ORDERED: LACTATED RINGERS 1,000 ML IV SCH (11:11)
[2017-08-21] MEDS ORDERED: EPIDURAL (SUFENTA 0.6MCG/ML BUPIVA 0.125%) 100 ML BAG EPI SCH (11:15)
[2017-08-21] MEDS ORDERED: ONDANSETRON 4 MG/2 ML (SDV) Z0FRAN IV PRN (11:15)
[2017-08-21] MEDS ORDERED: NALOXONE 0.4 MG/ML 1 ML (NARCAN) VIAL IV PRN ×2 (11:15)
[2017-08-21] MEDS ORDERED: METOCLOPRAMIDE INJ 10 MG/2 ML (REGLAN) IV PRN (11:15)
[2017-08-21] MEDS ORDERED: diphenhydrAMINE 50 MG/ML INJ (BENADRYL) IV PRN (11:15)
[2017-08-21] MEDS ORDERED: OXYTOCIN/NORMAL SALINE 1,000 ML IV ONE (15:27)
[2017-08-21] MEDS ORDERED: fentaNYL INJECTION 100 MCG/2 ML AMP ONE (15:27)
[2017-08-21] MEDS ORDERED: CITRIC ACID/SOB CIT (BICITRA) 30 ML UDC ONE (15:27)
[2017-08-21] MEDS ORDERED: raNItidine 50 MG/2 ML INJ (ZANTAC) ONE (15:27)
[2017-08-21] MEDS ORDERED: BUPIVACAINE SPINAL 0.75% (SENSORCAINE) 2 ML AMP ONE ×3 (15:28→16:04)
[2017-08-21] MEDS ORDERED: ceFAZolin 2 GM IV Premixed 50 ML ONE (15:29)
[2017-08-21] MEDS ORDERED: CITRIC ACID/SOB CIT (BICITRA) 30 ML UDC PO ONE (15:30)
[2017-08-21] MEDS ORDERED: CATHETER FLUSH 10 ML SYR IV PRN (15:30)
[2017-08-21] MEDS ORDERED: METOCLOPRAMIDE INJ 10 MG/2 ML (REGLAN) IV ONE (15:30)
[2017-08-21] MEDS ORDERED: FAMOTIDINE 20MG/2ML IV (PEPCID) IV ONE (15:30)
[2017-08-21] MEDS ORDERED: LIDOCAINE PF 1% 5 ML (XYLOCAINE) AMP ONE (15:40)
[2017-08-21] MEDS ORDERED: raNItidine 50 MG/2 ML INJ (ZANTAC) IV ONE (16:00)
[2017-08-21] MEDS ORDERED: ceFAZolin 2 GM IV Premixed 50 ML IV ONE (16:00)
[2017-08-21] MEDS ORDERED: ONDANSETRON 4 MG/2 ML (SDV) Z0FRAN ONE (16:26)
[2017-08-21] MEDS ORDERED: CARBOPROST (HEMABATE) 250 MCG/ML AMP IM ONE (16:29)
[2017-08-21] MEDS ORDERED: OXYTOCIN/NORMAL SALINE 500 ML IV SCH (16:55)
[2017-08-21] MEDS ORDERED: HYDROmorphone 2 MG/ML VIAL (DILAUDID) IVP PRN (17:00)
[2017-08-21] MEDS ORDERED: TETANUS,DIPTH,PERTUSS P/F (BOOSTRIX) 0.5 ML VIAL IM SCH (17:00)
[2017-08-21] MEDS ORDERED: MEASLES,MUMPS,RUBELLA 1 EA INJ SC SCH (17:00)
--- NOTE | 2017-08-21 17:33 | Discharge Inst-Women's Service ---
Discharge Inst-Women's Serv Depart Medication/Instructions Final Diagnosis PreE, 38 week IUP, POD 2 PLTCS Consults/Follow Up Additional Follow Up: Yes Orders/Referrals Dr. Bentley in 7-10 days and in 6 weeks Activity Activity: Activity as Tolerated Driving Instructions: No Driving for 1 Week NO SMOKING: NO SMOKING Nothing Inside Vagina: No Douching, No [place], No Tampons Diet Discharge Diet: No Restrictions Symptoms to Report to : Bleeding Excessive, Pain Increased, Fever Over 101 Degrees F, Vaginal Bleeding Increase, Lightheadedness, Questions/Concerns, Dizziness/Fainting For Any Problems or Questions: Contact Your Physician Skin/Wound Care Infection Signs and Symptoms: Increased Redness, Foul Odor of Wound, Increased Drainage, Skin Itchy or Has a Rash, Increased Swelling, Temperature Above 101 F Operative Area Clean and Dry: Keep Incision Clean/Dry Stitches/[place]/Dermabond: Dermabond, Care of Stitches Bathing Instructions: ENOC Raza DO Aug 21, 2017 17:33
[2017-08-21] MEDS ORDERED: ACHD5005 PO (17:34)
[2017-08-21] MEDS ORDERED: IBUP-844 PO (17:34)
[2017-08-21] MEDS ORDERED: DOCU100C37 PO (17:34)
[2017-08-21] MEDS ORDERED: LABE200T3 PO (17:34)
[2017-08-21] MEDS: KETOROLAC 30 MG/ML VIAL IVP SCH (18:05)
[2017-08-21] MEDS: HYDROcodone/APAP 5 MG/325 MG (LORTAB) TAB PO PRN ×2 (19:03→23:02)
[2017-08-21] MEDS ORDERED: CATHETER FLUSH 10 ML SYR IV SCH (22:00)
[2017-08-22] MEDS: KETOROLAC 30 MG/ML VIAL IVP SCH ×2 (00:07→05:45)
[2017-08-22 00:10] VITALS: BP 141/82
--- NOTE | 2017-08-22 02:38 | OPERATIVE REPORT ---
DATE OF SERVICE: PREOPERATIVE DIAGNOSES: 1. A 22-year-old G1, P0 at 38 weeks and 2 days gestation. 2. Failure to progress. 3. Worsening blood pressure with preeclampsia. POSTOPERATIVE DIAGNOSES: 1. A 22-year-old G1, P0 at 38 weeks and 2 days gestation. 2. Failure to progress. 3. Worsening blood pressure with preeclampsia. 4. Nuchal cord x2. PROCEDURE: Primary low transverse section. SURGEON: Dr. Raghu Bentley. PROPRIETARY TRADER: BLANCA Goodman. ANESTHESIA: Spinal. ESTIMATED BLOOD LOSS: 650 mL. URINE OUTPUT: 550 mL clear at the end of the procedure. FLUIDS: 1400 mL lactated Ringer's solution. FINDINGS: A live female weighing 7 pounds 4 ounces, Apgars of 8 and 9. Grossly normal appearing uterus, bilateral fallopian tubes and ovaries with a palpable left-sided pelvic kidney. SPECIMEN SENT: Placenta. INDICATIONS FOR PROCEDURE: This 22-year-old female was admitted yesterday evening with the diagnosis of preeclampsia. She was found to have blood pressures of 140s to 150s over 80s to 90s. At admission, blood work was done, which was stable; however, she did have a urine protein to creatinine ratio of greater than 0.3. Due to this indication, I decided to proceed with inducing the patient. She was extremely unfavorable at the time of an induction. She was closed approximately 70% effaced and -2 station. Cytotec was used overnight for cervical ripening and the patient was found to be dilated to 1 cm this morning approximately 80% effaced and -1 station. There appeared to be good engagement of the head into the pelvis at -1 station. Therefore, rupture of membranes was performed using a scalp electrode, clear fluid was noted. Pitocin augmentation was initiated and the patient did receive an epidural for analgesic purposes after a good contraction pattern was noted. She continued to contract and adequate contraction pattern at approximately every 2 to 3 minutes throughout the day with little and no drying rack changer an 8-hour timeframe. Her blood pressures began worsening again this afternoon and the epidural control was fading at that point, I discussed with the patient proceeding with delivery due to worsening blood pressures at times of 180s over 100s. Risks of the procedure were discussed with the patient in detail including risks of bleeding, infection, damage to any surrounding structures including but not limited to bowel, bladder, ureter, kidneys, risk for damaging the , risk of postoperative complications, need for blood transfusion and even . However, risk of waiting was discussed with the patient including risks of the fetus and risks to mom, possibility of stroke and inability to give a full gamut of antihypertensive medications was discussed. After everything was covered with the patient and all of her questions were answered. Consent was obtained and the patient was taken to the operating room. OPERATIVE REPORT IN DETAIL: Once in the operating room, spinal anesthesia was found to be adequate. She was placed in supine position with a leftward tilt, prepped and draped in normal sterile fashion. The anesthesia was tested and timeout was performed. A Pfannenstiel skin incision was then made with a knife and carried to underlying fascia using Bovie cautery. The fascial incision extended laterally using Bovie cautery. The superior aspect of the fascial incision was then grasped with Georgette clamps, tented up and dissected off the underlying rectus muscles. The inferior aspect of the fascial incision was then grasped with Georgette clamps, tented upward and dissected off the underlying rectus muscles. Rectus muscle was then dissected down the midline using Chavez scissors, which exposed the peritoneum, which entered bluntly and extended using blunt traction. Once the peritoneal access was obtained, I placed an Casa ring retractor into the peritoneal incision, which offered excellent lateral sidewall retraction. I then make a low transverse incision to the vesicouterine peritoneum using a knife and bluntly dissect the vesicouterine peritoneum off the lower uterine segment. I proceeded with myotomy until membranes were visualized, at which point I extended the uterine incision laterally and superiorly using bandage scissors and rupture of the membranes through the uterine incision is encountered during this point. The infant was found on the occiput posterior presentation with gentle fundal pressure, the 's head is elevated up to the incision and delivered through the incision where the nares and oropharynx were bulb suctioned and a nuchal cord was reduced x2. The anterior, posterior shoulder was delivered. The infant was then brought to the operative field where the cord was doubly clamped and cut and was handed off to waiting office services specialist in attendance. Cord blood was collected, 3-vessel cord with intact placenta was delivered spontaneously thereafter. IV Pitocin was initiated to facilitate uterine contraction and fundus becomes slightly increased in firmness with bimanual massage; however, I do have anesthesia give 250 mcg of Hemabate due to some mild persistent atony, which does improve after the Hemabate dosing. I then proceeded with closing the uterine incision using 0 Vicryl suture in running locked fashion. Second layer of imbricating 0 Monocryl was placed. Excellent hemostasis was noted after doing so. I then copiously irrigated the pelvis and placed the uterus back within the pelvis while irrigating. There was no active bleeding noted from any of my dissection planes. I placed Interceed antiadhesive over my low transverse incision and proceeded with closing the peritoneum using 3-0 Vicryl suture in running fashion. The rectus muscle was reapproximated using 3-0 Vicryl suture in interrupted fashion. The fascia was reapproximated using 0 Vicryl in a running fashion, subcutaneous tissue was reapproximated using 3-0 plain in an interrupted subcutaneous stitch and skin reapproximated using 4-0 Monocryl running subcuticular. Dermabond was applied to incision. Sterile dressing with adhesive white tape. The patient tolerated the procedure well and was taken to recovery area in stable condition. Lap and sponge counts were correct at the end of the procedure. Instrument counts correct as well. Two grams of Ancef given preoperatively for infection prophylaxis. Blood pressures remained stable throughout the procedure in the 130s over 70s to 80s. Narayan catheter was left in place. Job ID: [id number] DocumentID: [id number] Dictated Date: 08/21/2017 17:31:37 Lunch Wagon Operator Date: 08/22/2017 02:37:50 Dictated By: DO FACUNDO GASCA
[2017-08-22 05:30] VITALS: BP 146/95
[2017-08-22 05:35] LABS: BASOPHILS % (AUTO) 0 % (0-10); EOSINOPHILS # (AUTO) 0.1 10^3/uL (0.0-0.3); EOSINOPHILS % (AUTO) 1 % (0-10); HEMATOCRIT 30 % (35-52); HEMOGLOBIN 9.8 G/DL (11.5-16.0); LYMPHOCYTES # (AUTO) 1.5 X 10^3 (1.0-4.0); LYMPHOCYTES % (AUTO) 10 % (12-44); MEAN CORPUSCULAR HEMOGLOBIN 27 PG (25-34); MEAN CORPUSCULAR HGB CONC 33 G/DL (32-36); MEAN CORPUSCULAR VOLUME 82 FL (80-99); MEAN PLATELET VOLUME 12.1 FL (7.4-10.4); MONOCYTES # (AUTO) 1.1 X 10^3 (0.0-1.0); MONOCYTES % (AUTO) 7 % (0-12); NEUTROPHILS # (AUTO) 12.3 X 10^3 (1.8-7.8); NEUTROPHILS % (AUTO) 82 % (42-75); PLATELET COUNT 165 10^3/uL (130-400); RED BLOOD COUNT 3.62 10^6/uL (4.35-5.85); RED CELL DISTRIBUTION WIDTH 14.1 % (10.0-14.5); WHITE BLOOD COUNT 15.1 10^3/uL (4.3-11.0)
[2017-08-22] MEDS: HYDROcodone/APAP 5 MG/325 MG (LORTAB) TAB PO PRN ×3 (05:44→19:40)
--- NOTE | 2017-08-22 08:24 | Anesthesia-Regional Post-Op ---
Regional Patient Condition Mental Status: Alert, Oriented x3 Circulation: Same as Pre-Op Headache: Absent Sensation: Full Recovery Motor Block: Absent Post Op Complications Complications None Follow Up Care/Instructions Patient Instructions None needed. Anesthesia/Patient Condition Patient is doing well, no complaints, stable vital signs, no apparent adverse anesthesia problems. No complications reported per nursing. [place] [facility] [place]: Yes ELIAZBETH RODRIGUEZ CRNA Aug 22, 2017 08:24
[2017-08-22 08:30] VITALS: BP 135/86
--- NOTE | 2017-08-22 08:30 | Postpartum Progress Note ---
Note Note Day # 1 Subjective: Patient is hurting this morning, but has just gotten out of the shower. She is ambulating, and voiding. Tolerating a regular diet without nausea or vomiting. Normal lochia. She is on oral pain medications, having RN give IV as needed. Denies cp, sob, changes in vision. Objective: Vital Sign - Last 24 Hours 08/21/17 08/21/17 08/21/17 08/21/17 08:35 08:50 09:05 09:20 Temp 98.8 Pulse 71 86 77 78 Resp 18 18 18 18 B/P (MAP) 157/89 (111) 155/97 (116) 159/93 (115) 159/95 (116) O2 Delivery Room Air Room Air Room Air Room Air 08/21/17 08/21/17 08/21/17 08/21/17 09:35 09:50 10:05 10:20 Temp 99.1 Pulse 81 78 82 84 Resp 18 18 20 20 B/P (MAP) 154/90 (111) 164/93 (116) 169/97 (121) 154/82 (106) O2 Delivery Room Air Room Air Room Air Room Air 08/21/17 08/21/17 08/21/17 08/21/17 10:35 10:50 10:55 11:00 Pulse 76 80 88 75 Resp 20 20 20 18 B/P (MAP) 154/93 (113) 170/98 (122) 173/103 (126) 157/95 (115) Pulse Ox 99 99 98 O2 Delivery Room Air Room Air Room Air Room Air 08/21/17 08/21/17 08/21/17 08/21/17 11:05 11:10 11:15 11:20 Pulse 82 96 77 78 Resp 16 16 18 18 B/P (MAP) 159/98 (118) 155/88 (110) 147/81 (103) 140/79 (99) Pulse Ox 98 98 99 98 O2 Delivery Room Air Room Air Room Air Room Air 08/21/17 08/21/17 08/21/17 08/21/17 11:25 11:30 11:35 11:45 Pulse 77 87 77 74 Resp 18 18 18 20 B/P (MAP) 145/80 (101) 145/89 (107) 145/83 (103) 152/85 (107) Pulse Ox 99 99 99 99 O2 Delivery Room Air Room Air Room Air Room Air 08/21/17 08/21/17 08/21/17 08/21/17 12:00 12:15 12:30 12:45 Pulse 73 81 76 81 Resp 20 20 18 18 B/P (MAP) 154/89 (110) 148/87 (107) 147/87 (107) 139/85 (103) Pulse Ox 99 99 98 98 O2 Delivery Room Air Room Air Room Air Room Air 08/21/17 08/21/17 08/21/17 08/21/17 13:00 13:15 13:30 13:40 Pulse 77 77 76 80 Resp 18 18 20 20 B/P (MAP) 138/83 (101) 139/85 (103) 156/95 (115) 154/90 (111) Pulse Ox 97 97 97 98 O2 Delivery Room Air Room Air Room Air Room Air 08/21/17 08/21/17 08/21/17 08/21/17 13:45 13:50 13:55 14:00 Pulse 76 80 76 78 Resp 20 20 18 18 B/P (MAP) 158/96 (116) 160/98 (118) 156/94 (114) 149/89 (109) Pulse Ox 99 99 99 98 O2 Delivery Room Air Room Air Room Air Room Air 08/21/17 08/21/17 08/21/17 08/21/17 14:05 14:10 14:15 14:20 Pulse 77 81 85 78 Resp 18 18 20 20 B/P (MAP) 159/93 (115) 173/100 (124) 158/89 (112) 145/79 (101) Pulse Ox 98 99 98 98 O2 Delivery Room Air Room Air Room Air Room Air 08/21/17 08/21/17 08/21/17 08/21/17 14:25 14:30 14:35 14:45 Pulse 78 81 83 88 Resp 18 18 18 20 B/P (MAP) 147/83 (104) 145/81 (102) 153/84 (107) 151/81 (104) Pulse Ox 98 98 98 98 O2 Delivery Room Air Room Air Room Air Room Air 08/21/17 08/21/17 08/21/17 08/21/17 14:50 14:55 15:00 15:05 Pulse 85 85 85 84 Resp 20 20 18 18 B/P (MAP) 154/81 (105) 154/8 (56) 158/84 (108) 157/81 (106) Pulse Ox 98 97 98 96 O2 Delivery Room Air Room Air Room Air Room Air 08/21/17 08/21/17 08/21/17 08/21/17 15:10 15:15 15:20 15:25 Temp 100.7 Pulse 81 83 87 85 Resp 20 20 18 18 B/P (MAP) 175/98 (123) 162/91 (114) 152/87 (108) 168/89 (115) Pulse Ox 96 96 97 97 O2 Delivery Room Air Room Air Room Air Room Air 08/21/17 08/21/17 08/21/17 08/21/17 15:30 15:35 15:40 18:50 Temp 99.1 Pulse 88 90 109 90 Resp 18 20 18 B/P (MAP) 153/82 (105) 170/94 (119) 146/78 (100) 147/94 (111) Pulse Ox 97 97 97 97 O2 Delivery Room Air Room Air Room Air Room Air 08/21/17 08/21/17 08/22/17 08/22/17 19:35 19:46 00:10 05:30 Temp 98.4 98.3 98.2 Pulse 92 90 80 Resp 18 18 18 B/P (MAP) 141/85 (103) 141/82 (101) 146/95 (112) Pulse Ox 98 96 97 O2 Delivery Room Air Room Air Room Air Room Air Intake and Output 08/21/17 08/21/17 08/22/17 15:00 23:00 07:00 Intake Total 1000 ml 50 ml 800 ml Output Total 1200 ml 500 ml Balance 1000 ml -1150 ml 300 ml Physical Exam: General - Alert and oriented, no apparent distress Abdomen - Soft, appropriately tender to palpation, non-distended, fundus firm at umbilicus Extremities - no edema, negative Arcadio's bilaterally Incision - c/d/i Assessment: POD 1 PLTCS Failure to progress Acute blood loss anemia PreE- bp control labile Pain control concerns Plan: Routine care. Encourage breast feeding. Encourage ambulation. Ferrous sulfate supplementation. Labetalol started IV Pain meds ordered for breakthrough pain Plan for discharge tomorrow Vitals - Labs Vital Signs - I&O Vital Signs Date Time Temp Pulse Resp B/P (MAP) Pulse Ox O2 Delivery O2 Flow Rate FiO2 08/22/17 05:30 98.2 80 18 146/95 (112) 97 Room Air 08/22/17 00:10 98.3 90 18 141/82 (101) 96 Room Air 08/21/17 19:46 98.4 92 18 141/85 (103) 98 Room Air 08/21/17 19:35 Room Air 08/21/17 18:50 99.1 90 18 147/94 (111) 97 Room Air 08/21/17 15:40 109 20 146/78 (100) 97 Room Air 08/21/17 15:35 90 20 170/94 (119) 97 Room Air 08/21/17 15:30 88 18 153/82 (105) 97 Room Air 08/21/17 15:25 85 18 168/89 (115) 97 Room Air 08/21/17 15:20 87 18 152/87 (108) 97 Room Air 08/21/17 15:15 100.7 83 20 162/91 (114) 96 Room Air 08/21/17 15:10 81 20 175/98 (123) 96 Room Air 08/21/17 15:05 84 18 157/81 (106) 96 Room Air 08/21/17 15:00 85 18 158/84 (108) 98 Room Air 08/21/17 14:55 85 20 154/8 (56) 97 Room Air 08/21/17 14:50 85 20 154/81 (105) 98 Room Air 08/21/17 14:45 88 20 151/81 (104) 98 Room Air 08/21/17 14:35 83 18 153/84 (107) 98 Room Air 08/21/17 14:30 81 18 145/81 (102) 98 Room Air 08/21/17 14:25 78 18 147/83 (104) 98 Room Air 08/21/17 14:20 78 20 145/79 (101) 98 Room Air 08/21/17 14:15 85 20 158/89 (112) 98 Room Air 08/21/17 14:10 81 18 173/100 (124) 99 Room Air 08/21/17 14:05 77 18 159/93 (115) 98 Room Air 08/21/17 14:00 78 18 149/89 (109) 98 Room Air 08/21/17 13:55 76 18 156/94 (114) 99 Room Air 08/21/17 13:50 80 20 160/98 (118) 99 Room Air 08/21/17 13:45 76 20 158/96 (116) 99 Room Air 08/21/17 13:40 80 20 154/90 (111) 98 Room Air 08/21/17 13:30 76 20 156/95 (115) 97 Room Air 08/21/17 13:15 77 18 139/85 (103) 97 Room Air 08/21/17 13:00 77 18 138/83 (101) 97 Room Air 08/21/17 12:45 81 18 139/85 (103) 98 Room Air 08/21/17 12:30 76 18 147/87 (107) 98 Room Air 08/21/17 12:15 81 20 148/87 (107) 99 Room Air 08/21/17 12:00 73 20 154/89 (110) 99 Room Air 08/21/17 11:45 74 20 152/85 (107) 99 Room Air 08/21/17 11:35 77 18 145/83 (103) 99 Room Air 08/21/17 11:30 87 18 145/89 (107) 99 Room Air 08/21/17 11:25 77 18 145/80 (101) 99 Room Air 08/21/17 11:20 78 18 140/79 (99) 98 Room Air 08/21/17 11:15 77 18 147/81 (103) 99 Room Air 08/21/17 11:10 96 16 155/88 (110) 98 Room Air 08/21/17 11:05 82 16 159/98 (118) 98 Room Air 08/21/17 11:00 75 18 157/95 (115) 98 Room Air 08/21/17 10:55 88 20 173/103 (126) 99 Room Air 08/21/17 10:50 80 20 170/98 (122) 99 Room Air 08/21/17 10:35 76 20 154/93 (113) Room Air 08/21/17 10:20 84 20 154/82 (106) Room Air 08/21/17 10:05 82 20 169/97 (121) Room Air 08/21/17 09:50 78 18 164/93 (116) Room Air 08/21/17 09:35 99.1 81 18 154/90 (111) Room Air 08/21/17 09:20 78 18 159/95 (116) Room Air 08/21/17 09:05 77 18 159/93 (115) Room Air 08/21/17 08:50 86 18 155/97 (116) Room Air 08/21/17 08:35 98.8 71 18 157/89 (111) Room Air I & O 08/22/17 07:00 Intake Total 1850 ml Output Total 1700 ml Balance 150 ml Labs Laboratory Tests 08/22/17 05:20: White Blood Count 15.1H, Red Blood Count 3.62L, Hemoglobin 9.8L, Hematocrit 30L , Mean Corpuscular Volume 82, Mean Corpuscular Hemoglobin 27, Mean Corpuscular Hemoglobin Concent 33, Red Cell Distribution Width 14.1, Platelet Count 165, Mean Platelet Volume 12.1H, Neutrophils (%) (Auto) 82H, Lymphocytes (%) (Auto) 10L, Monocytes (%) (Auto) 7, Eosinophils (%) (Auto) 1, Basophils (%) (Auto) 0, Neutrophils # (Auto) 12.3H, Lymphocytes # (Auto) 1.5, Monocytes # (Auto) 1.1H, Eosinophils # (Auto) 0.1, Basophils # (Auto) 0.0 ENOC TADEO DO Aug 22, 2017 8:30 am
[2017-08-22] MEDS ORDERED: FERR-84 PO (08:32)
[2017-08-22] MEDS: LABETALOL 200 MG (NORMODYNE) TAB PO SCH ×3 (08:34→20:40)
[2017-08-22] MEDS: DOCUSATE SODIUM 100 MG (COLACE) CAP PO SCH ×2 (08:35→20:40)
[2017-08-22] MEDS ORDERED: FERROUS SULF 325 MG (IRON) TAB PO ONE (08:35)
[2017-08-22] MEDS: FERROUS SULF 325 MG (IRON) TAB PO SCH (08:39)
[2017-08-22] MEDS ORDERED: IBUPROFEN 600 MG (MOTRIN) TAB PO ONE (11:49)
[2017-08-22 13:00] VITALS: BP 136/81
[2017-08-22] MEDS: IBUPROFEN 600 MG (MOTRIN) TAB PO SCH ×3 (13:09→23:56)
[2017-08-22 16:45] VITALS: BP 136/77
[2017-08-22 23:55] VITALS: BP 136/82
[2017-08-23] MEDS: HYDROcodone/APAP 5 MG/325 MG (LORTAB) TAB PO PRN ×3 (00:38→11:53)
[2017-08-23] MEDS: IBUPROFEN 600 MG (MOTRIN) TAB PO SCH (05:47)
[2017-08-23 05:50] VITALS: BP 129/76
[2017-08-23 08:04] VITALS: BP 154/98
[2017-08-23] MEDS: FERROUS SULF 325 MG (IRON) TAB PO SCH (08:20)
[2017-08-23] MEDS: DOCUSATE SODIUM 100 MG (COLACE) CAP PO SCH (08:20)
[2017-08-23] MEDS: LABETALOL 200 MG (NORMODYNE) TAB PO SCH ×2 (08:21→13:34)
--- NOTE | 2017-08-23 09:03 | Progress Note-Standard ---
Standard Progress Note Progress Notes/Assess & Plan Date Seen by Provider: Aug 23, 2017 Time Seen by Provider: 08:45 Progress/Assessment & Plan Day # 2 Subjective: Patient is doing much better today, but having some RUQ pain. She is ambulating , and voiding. Tolerating a regular diet without nausea or vomiting. Normal lochia. She is on oral pain medication, maxed out dose of lortab yesterday. Denies cp, sob, changes in vision. Objective: Vital Sign - Last 24 Hours 08/22/17 08/22/17 08/22/17 08/23/17 13:00 16:45 23:55 05:50 Temp 99.2 99.7 97.4 98.2 Pulse 88 88 82 72 Resp 18 18 18 18 B/P (MAP) 136/81 (99) 136/77 (96) 136/82 (100) 129/76 (93) Pulse Ox 98 97 97 96 O2 Delivery Room Air Room Air Room Air Room Air 08/23/17 08:04 Temp 97.8 Pulse 76 Resp 18 B/P (MAP) 154/98 (116) O2 Delivery Room Air Intake and Output 08/22/17 08/22/17 08/23/17 15:00 23:00 07:00 Intake Total 2020 ml 800 ml Output Total 1250 ml 1450 ml Balance 770 ml -650 ml Physical Exam: General - Alert and oriented, no apparent distress Abdomen - Soft, appropriately tender to palpation, non-distended, fundus firm at umbilicus Extremities - no edema, negative Arcadio's bilaterally Incision - c/d/i Assessment: POD 2 PLTCS Failure to progress Acute blood loss anemia PreE- bp control labile RUQ tenderness Plan: Routine care. Encourage breast feeding. Encourage ambulation. Ferrous sulfate supplementation. Mylicon ordered for suspected gas pain Labetalol continued CMP repeated for LFT, as well as CBC Plan for discharge later today if stable ENOC TADEO DO Aug 23, 2017 9:03 am
[2017-08-23 10:10] LABS: BASOPHILS % (AUTO) 0 % (0-10); EOSINOPHILS # (AUTO) 0.2 10^3/uL (0.0-0.3); EOSINOPHILS % (AUTO) 2 % (0-10); HEMATOCRIT 26 % (35-52); HEMOGLOBIN 8.6 G/DL (11.5-16.0); LYMPHOCYTES # (AUTO) 1.6 X 10^3 (1.0-4.0); LYMPHOCYTES % (AUTO) 14 % (12-44); MEAN CORPUSCULAR HEMOGLOBIN 28 PG (25-34); MEAN CORPUSCULAR HGB CONC 33 G/DL (32-36); MEAN CORPUSCULAR VOLUME 84 FL (80-99); MEAN PLATELET VOLUME 11.5 FL (7.4-10.4); MONOCYTES # (AUTO) 0.6 X 10^3 (0.0-1.0); MONOCYTES % (AUTO) 6 % (0-12); NEUTROPHILS # (AUTO) 8.7 X 10^3 (1.8-7.8); NEUTROPHILS % (AUTO) 78 % (42-75); PLATELET COUNT 162 10^3/uL (130-400); RED BLOOD COUNT 3.11 10^6/uL (4.35-5.85); RED CELL DISTRIBUTION WIDTH 14.8 % (10.0-14.5); WHITE BLOOD COUNT 11.1 10^3/uL (4.3-11.0)
[2017-08-23 10:31] LABS: ALANINE AMINOTRANSFERASE 8 U/L (0-55); ALBUMIN 2.4 GM/DL (3.2-4.5); ALKALINE PHOSPHATASE 90 U/L (40-136); BILIRUBIN,TOTAL 0.2 MG/DL (0.1-1.0); BUN/CREATININE RATIO 18; CALCIUM 8.3 MG/DL (8.5-10.1); CARBON DIOXIDE 26 MMOL/L (21-32); CHLORIDE 110 MMOL/L (98-107); CREATININE SERUM 0.56 MG/DL (0.60-1.30); GFR ESTIMATED > 60; GLUCOSE 75 MG/DL (70-105); POTASSIUM 3.9 MMOL/L (3.6-5.0); SODIUM 139 MMOL/L (135-145); TOTAL PROTEIN 4.8 GM/DL (6.4-8.2)
[2017-08-23 12:00] VITALS: BP 138/83
[2017-08-23] MEDS ORDERED: SIMETHICONE 80 MG (MYLICON) CHEW PO SCH (13:00)
== END 2017-08-23 16:30 | disposition home or self-care (01) | DRG 765 ==
LOC: WSo 16:59 → LDRP 17:00 → WSo 20:35 → LDRP 20:35
PROVIDERS: ADMIT Obstetrics & Gynecology; ATTEND Obstetrics & Gynecology
PROC: 10D00Z1 Extraction of Products of Conception, Low, Open Approach (ICD-10-PCS; principal; 2017-08-21 15:46)
DX: O14.93 Unspecified pre-eclampsia, third trimester (principal); O99.03 Anemia complicating the puerperium; D62 Acute posthemorrhagic anemia; O61.0 Failed medical induction of labor; O69.81X0 Labor and delivery complicated by cord around neck, without compression, not applicable or unspecified; O75.89 Other specified complications of labor and delivery; O26.833 Pregnancy related renal disease, third trimester; Q63.2 Ectopic kidney; O90.89 Other complications of the puerperium, not elsewhere classified; R10.11 Right upper quadrant pain; Z3A.38 38 weeks gestation of pregnancy; Z37.0 Single live birth; Z23 Encounter for immunization
CPT/HCPCS: 36415; 76805; 76819; 80053; 82570; 84156; 84550; 85007; 85025; 85027; 86850; 86900; 86901; 88307; 90707; 94664; 99212

== ENCOUNTER → 2019-06-09 | Outpatient (CLI) | payer BC, OTHER ==
[~2019-06-09] MED LIST changes: +ACHD5005 PO; +DOCU100C37 PO; +FERR-84 PO; +IBUP-844 PO; +LABE200T7 PO
--- NOTE | 2019-06-09 13:10 | Diagnostic Imaging Report ---
INDICATION: Size and dates. TECHNIQUE: Multiple real-time grayscale images were obtained over the gravid uterus. COMPARISON: None FINDINGS: There is a single living intrauterine in breech presentation. There is normal volume of amniotic fluid. Placenta is anterior. There is no previa. The anatomical survey is unremarkable. This included a four chamber heart and three-vessel cord. Heart rate is 144 bpm and regular. Cervical length is 3.6 cm. There are some placental lakes, largest measuring up to 1.7 x 1.4 cm. There is a pelvic kidney seen in the left adnexa. Adnexa is otherwise unremarkable. Biometrical measurements are as follows: Biparietal 4.30 cm, age 19 weeks 1 days. Head circumference 17.40 cm, age 20 weeks 0 days. Abdominal circumference 14.70 cm, age 20 weeks 0 days. Femur length 3.27 cm, age 20 weeks 2 days. Sonographic estimate age: 19 weeks 6 days. Sonographic estimated date of delivery: 10/28/2019. Estimated Weight: 328 gm (+/- 48 gm). LMP percentile: 56%. heart rate: 144 beats per minute. number: 1 of 1. IMPRESSION: Single living intrauterine with a sonographic estimated gestational age of 19 weeks 6 days and estimated date of confinement of 10/28/2019. Dictated by: Dictated on workstation # [id number]
== END ==
LOC: RAD 09:32
PROVIDERS: ATTEND Nurse Practitioner Women's Health
DX: Z36.89 Encounter for other specified antenatal screening (principal); Z3A.19 19 weeks gestation of pregnancy
CPT/HCPCS: 76805

== ENCOUNTER 2019-07-22 16:40 | Outpatient (CLI) | payer BC ==
[~2019-07-22] VITALS: Ht 160 cm; Wt 72.6 kg
--- NOTE | 2019-07-22 16:36 | NUR ---
EMELYN ALEXANDER presented to unit via ambulation from home, accompanied by S.o, with c/o POSS LEAKING AMNIOTIC FLUID. EMELYN ALEXANDER weighed, gowned, voided, and to bed. EFHM and TOCO applied, VS taken. EMELYN ALEXANDER oriented to bed controls, call light, TV, heat, and A/C controls.
[2019-07-22 17:00] VITALS: BP 112/59
[2019-07-22 17:04] LABS: BILIRUBIN,URINE NEGATIVE (NEGATIVE); CLARITY,URINE CLEAR; COLOR,URINE YELLOW; GLUCOSE, URINE (UA) NEGATIVE (NEGATIVE); KETONES,URINE NEGATIVE (NEGATIVE); LEUKOCYTE ESTERASE ,URINE 2+ (NEGATIVE); NITRITE,URINE NEGATIVE (NEGATIVE); PROTEIN,URINE NEGATIVE (NEGATIVE)
[2019-07-22 17:57] LABS: AMORPHOUS SEDIMENT,UR MOD AMOR PHOSPHATE /LPF; BACTERIA,URINE TRACE /HPF; CALCIUM OXALATE CRYSTALS,UR FEW /LPF
--- NOTE | 2019-07-22 18:05 | NUR ---
Dr Nicholas called and notified of pt arrival, , EDC October 27 (26wks). Pt presented to PCP today c/o L flank pain that wraps around to lower abd. Was diagnosed with UTI, but PCP sent to OB to r/o leaking as amniotic fluid. EFM, ctx pattern, nitrazine, UA reported to Order rec'd for macrobid x1 before discharge then call in macrobid 100mg bid x7days then d/c home.
--- NOTE | 2019-07-22 18:25 | NUR ---
Discharge instructions explained to pt with copy provided to pt. Pt notified of script at [facility]. Pt verbalizes understanding of instructions and signs to verify. Denies questions or concerns at this time. No s/s of distress noted.
[2019-07-22] MEDS ORDERED: NITROFURANTOIN 100 MG (MACROBID) CAPSULE PO ONE (18:30)
--- NOTE | 2019-07-23 08:10 | Physician Query-Final Dx ---
ALYSIA OTTO 07/23/19 0810: Clinic Account Progress/Dx Physician Query: Please give diagnosis Please include # weeks gestation Date of Service Jul 22, 2019 at 16:40 EDSON ESCOBEDO DO 07/23/19 1415: Clinic Account Progress/Dx DIAGNOSIS: Diagnosis 26 week gestation UTI ALYSIA OTTO Jul 23, 2019 08:10 EDSON ESCOBEDO DO Jul 23, 2019 14:15
== END 2019-07-22 18:25 | disposition home or self-care (01) ==
LOC: LDRP 16:40 → WSo 16:40
PROVIDERS: ATTEND Obstetrics & Gynecology
DX: O23.42 Unspecified infection of urinary tract in pregnancy, second trimester (principal); Z3A.26 26 weeks gestation of pregnancy
CPT/HCPCS: 81000; 87088; 99214

== ENCOUNTER 2019-07-26 07:53 | Outpatient (CLI) | payer BC ==
[~2019-07-26] VITALS: Ht 157 cm; Wt 70.7 kg
--- NOTE | 2019-07-26 07:53 | NUR ---
EMELYN ALEXANDER presented to unit via ambulatory from ED, drove self in , with c/o BACK PAIN. EMELYN ALEXANDER weighed, gowned, voided, and to bed. EF and TOCO applied, VS taken. EMELYN ALEXANDER oriented to bed controls, call light, TV, heat, and A/C controls.
[2019-07-26 08:05] VITALS: BP 101/62
[2019-07-26 08:27] VITALS: BP 101/62
[2019-07-26 08:33] VITALS: BP 101/62
--- NOTE | 2019-07-26 08:55 | NUR ---
Dr Pereira notified of pt's admission and complaints of low back pain that radiates to abdomen. Outpt 07/22/19 for UTI on Macrobid bid. Culture results reviewed and mixed colonies. No contractions. Ordered straight cath UA, vaginal exam, and CBC.
[2019-07-26 09:24] LABS: BILIRUBIN,URINE NEGATIVE (NEGATIVE); CLARITY,URINE CLEAR; COLOR,URINE YELLOW; GLUCOSE, URINE (UA) NEGATIVE (NEGATIVE); KETONES,URINE NEGATIVE (NEGATIVE); LEUKOCYTE ESTERASE ,URINE NEGATIVE (NEGATIVE); NITRITE,URINE NEGATIVE (NEGATIVE); PH,URINE 6.5 (5-9); PROTEIN,URINE NEGATIVE (NEGATIVE)
[2019-07-26 09:33] LABS: BACTERIA,URINE NEGATIVE /HPF; RBC,URINE RARE /HPF; SQUAMOUS EPITHELIAL CELL,UR RARE /HPF
[2019-07-26 09:37] LABS: BASOPHILS % (AUTO) 0 % (0-10); EOSINOPHILS # (AUTO) 0.2 10^3/uL (0.0-0.3); EOSINOPHILS % (AUTO) 2 % (0-10); HEMATOCRIT 30 % (35-52); HEMOGLOBIN 9.9 G/DL (11.5-16.0); LYMPHOCYTES # (AUTO) 1.5 X 10^3 (1.0-4.0); LYMPHOCYTES % (AUTO) 16 % (12-44); MEAN CORPUSCULAR HEMOGLOBIN 28 PG (25-34); MEAN CORPUSCULAR HGB CONC 33 G/DL (32-36); MEAN CORPUSCULAR VOLUME 83 FL (80-99); MEAN PLATELET VOLUME 11.1 FL (7.4-10.4); MONOCYTES # (AUTO) 0.6 X 10^3 (0.0-1.0); MONOCYTES % (AUTO) 6 % (0-12); NEUTROPHILS # (AUTO) 7.1 X 10^3 (1.8-7.8); NEUTROPHILS % (AUTO) 76 % (42-75); PLATELET COUNT 209 10^3/uL (130-400); RED CELL DISTRIBUTION WIDTH 13.4 % (10.0-14.5); WHITE BLOOD COUNT 9.3 10^3/uL (4.3-11.0)
--- NOTE | 2019-07-26 09:50 | NUR ---
Pt denies contractions, heart rate 140's with accelerations and frequent movement.
--- NOTE | 2019-07-26 10:00 | NUR ---
Notified Dr Pereira by phone results of straight cath UA, CBC, vag exam and strip. Discharged to home at 1008. Pt verbalizes understanding.
--- NOTE | 2019-07-28 08:45 | Physician Query-Final Dx ---
Clinic Account Progress/Dx Physician Query: Please give diagnosis Please include # weeks gestation Date of Service Jul 26, 2019 at 07:53 ALYSIA OTTO Jul 28, 2019 08:45
== END 2019-07-26 10:08 | disposition home or self-care (01) ==
LOC: LDRP 07:53 → WSo 07:53
PROVIDERS: ATTEND Obstetrics & Gynecology
DX: O26.892 Other specified pregnancy related conditions, second trimester (principal)
CPT/HCPCS: 36415; 81000; 85025; 99214

== ENCOUNTER 2019-10-16 05:35 | Outpatient (RCR) | payer BC ==
[~2019-10-16] VITALS: Ht 152 cm; Wt 76.3 kg
== END 2019-10-16 14:48 | disposition home or self-care (01) ==
LOC: PREOP 05:35
PROVIDERS: ATTEND Obstetrics & Gynecology
DX: Z01.818 Encounter for other preprocedural examination (principal); Z11.59 Encounter for screening for other viral diseases
CPT/HCPCS: 87635

== ENCOUNTER 2019-10-21 10:04 | Inpatient (IN) | payer BC ==
[2019-10-21] VITALS (9 sets, daily range): BP systolic 91–129; BP diastolic 61–77
[~2019-10-21] VITALS: Ht 157.5 cm; Wt 77.8 kg
[2019-10-21] MEDS ORDERED: METOCLOPRAMIDE INJ 10 MG/2 ML (REGLAN) IV ONE (10:45)
[2019-10-21] MEDS ORDERED: FAMOTIDINE 20MG/2ML IV (PEPCID) IV ONE (10:45)
[2019-10-21] MEDS ORDERED: CATHETER FLUSH 10 ML SYR IV PRN (10:45)
[2019-10-21] MEDS ORDERED: ceFAZolin 2 GM IV Premixed 50 ML IV ONE (10:45)
[2019-10-21] MEDS ORDERED: CITRIC ACID/SOB CIT (BICITRA) 30 ML UDC PO ONE (10:45)
--- OUTSIDE RECORDS SUMMARY | 2019-10-21 10:49 | XMS REPORT ---
Author Author [facility] [employer] [facility] Address [address] [address] Care Team Providers Care Jailor Name Role Phone NO, LOCAL PHYSICIAN Unavailable Unavailable SHAILESH GUTIERREZ N Unavailable DELMIS TAYLOR Unavailable CAYLA LOPEZ Unavailable MATT, SHAILESH Unavailable MATT, SHAILESH Unavailable ELVIRA CHAVEZ Unavailable MATT, SHAILESH Unavailable MATT, SHAILESH Unavailable MATT, SHAILESH Unavailable CAYLA LOPEZ Unavailable BORIS KIDD Unavailable DELMIS TAYLOR Unavailable Unavailable KAYLA AVERY MD Unavailable Unavailable SHAILESH GUTIERREZ MD Unavailable Unavailable ROMAN BANKS APRN Unavailable Unavailable PCP, TRANSITION Unavailable Unavailable Unavailable Unavailable NO, LOCAL PHYSICIAN PCP Unavailable EDSON ESCOBEDO DO Unavailable Unavailable BRIGIDA RAM MD Unavailable Unavailable FENENOC OROZCO DO S Unavailable Unavailable KHOA RUELAS APRN Unavailable Unavailable FENECH ENOC GANDHI S Unavailable Unavailable Unavailable Unavailable Unavailable Unavailable Unavailable Unavailable Allergies Normalized Allergy Reported Date of Reaction(s) Care Provider Facility Allergy Type classification allergen Allergy Onset DA (8 Unclassified No Known Drug 04-26-2014 - no information SUKUMAR OSULLIVAN , Not Available sources.) Allergies (70306) Medications Current Medications Medication Ingredient Drug Dose Dates Status Sig Sig Care Class(es) (Normalized) (Original) Provid er montelukast montelukast Leukotriene 10 mg 07-06-19 Active take 1 Singulair 10 no 10 mg oral Translation Receptor 19 tablet by MG Orally n rambo tablet (1 s: [ Antagonist mouth once Once a day 1 source.) Singulair daily tablet 24h 10 MG] Jun, 30 days Active no Lpg276/Iron no Active no Oav478/Iron no information Fumarate/Fa information information Fumarate/Fa/ name (3 /Dss Dss Active 1 sources.) ORAL Completed/Discontinued Medications Medication Ingredient Drug Dose Dates Status Sig Sig Care Class(es) (Normalized) (Original) Provid er fluticasone fluticasone Corticoster 2 07-06-19 Suspende take 2 Flonase 50 no propionate Translation oid spray( 19 d spray(s) mcg/ act name 0.05 s: [ s) nasal route Nasally Once mg/actuat Flonase 50 once daily a day 2 metered mcg/act] sprays in dose nasal each nostril spray (1 24h Jun, source.) 2018 90 days Not-Taking Problems Active Problems Problem Normalized Date Last Normalized Normalized Provider Fa cility Classification Problem(s) Recorded Problem Problem Sta tus Duration Residual 11 weeks Episodic Active KHOA RUELAS [facility] Via codes; gestation of [facility] - (2 sources.) [place] () Residual 19 weeks 10-14-2019 - Episodic Active ROMAN BANKS [facility] Via codes; gestation of , [facility] - (5 sources.) [place] () Residual 20 weeks Episodic Active ENOC FENECH [facility] Via codes; gestation of , [facility] - (2 sources.) [place] () Residual 26 weeks 10-14-2019 - Episodic Active EDSON ESCOBEDO [facility] Via codes; gestation of [facility] - (8 sources.) [place] () Residual 35 weeks Episodic Active ENOC FENECH [facility] Via codes; gestation of , [facility] - (2 sources.) [place] () Residual 38 weeks Episodic Active ENOC FENECH [facility] Via codes; gestation of , [facility] - (2 sources.) [place] () Acute Acute Episodic Active ENOC FENECH [facility] Via posthemorrhagi posthemorrhagi , DO Princess c anemia (4 c anemia Hospital - sources.) [place] () Other Anemia Chronic Active ENOC FENECH [facility] Via complications complicating , DO Princess of ; [facility] ([facility]68) management of mother (4 sources.) Other Back pain Episodic Active LOCAL NO [place] [facility] a complications complicating [facility] (2 sources.) (72654) Other Constipation, Episodic Active KAYLA [facility] Via gastrointestin unspecified [facility] al disorders [facility] - (7 sources.) [place] (50938) Other Diseases of Episodic Active KAYLA [facility] Via complications the digestive Princess AVERY of system [facility] - (7 sources.) complicating [place] , (88502) first trimester Other Diseases of Episodic Active KAYLA [facility] Via complications the [facility] respiratory [facility] - (11 sources.) system [place] complicating (02233) , first trimester Other Encounter for 10-14-2019 - Episodic Active ROMAN DU NCAN [facility] Via screening for other , [employer] [facility] suspected specified Hospital - conditions [place] (not mental screening (67131) disorders or infectious disease) (5 sources.) Other Failed medical Episodic Active ENOC FENECH [facility] Via complications induction of , DO Princess of ; [facility] affecting (22441) management of mother (4 sources.) Unclassified Finding of no information Active LOCAL NO Asc ension Via (3 sources.) sensation of [facility] abdomen Hospital (35202) Residual Gestation Episodic Active LOCAL NO [place] [facility] a codes; period, 38 Princess unclassified weeks Hospital (3 sources.) (35615) Residual H/O: Episodic Active LOCAL NO [facility] n Via codes; section [facility] (1 source.) (88268) Umbilical cord Labor and Episodic Active ENOC FENECH [facility] Via complication delivery , DO Princess (4 sources.) complicated by Hospital - cord around [place] neck, without (07244) compression, not applicable or unspecified Residual Less than 8 10-14-2019 - Episodic Active KAYLA [facility] Via codes; weeks Princess AVERY unclassified gestation of [facility] - (9 sources.) [place] (05785) Bacterial Mycoplasma Episodic Active BORIS Eric ty infection; infection, [address] [facility] unspecified unspecified of [place] site (1 site [place] (72773) source.) Translations: [ - Mycoplasma infection A49.3] Nausea and Nausea and Episodic Active LOCAL NO [place] Via vomiting (3 vomiting Princess sources.) Hospital (87308) Other ear and Otalgia, right Episodic Active BORIS Meade sense organ ear [address] [facility] disorders (1 Translations: of [facility] source.) [ - Right ear [place] (67454) pain H92.01] Other ear and Otalgia, Episodic Active KHOA RUELAS [facility] V ia sense organ unspecified [employer] Princess disorders (7 Hospital - sources.) [place] (90606) Nonspecific Other chest Episodic Active KHOA RUELAS [facility] Via chest pain (4 pain [employer] Princess sources.) Hospital - [place] (68976) Other Other Episodic Active ENOC FENECH [facility] Via complications complications , DO Princess of ; of the Hospital - puerperium puerperium, [place] affecting not elsewhere (20799) management of classified mother (4 sources.) Diseases of Other lesions Episodic Active BORIS Chatterjee mmunity mouth; of oral mucosa [address] [facility] excluding Translations: of [facility] dental (1 [ - Mouth pain [place] (19265) source.) K13.79] Other Other Episodic Active ENOC FENECH [facility] Via complications specified , DO Princess of ; complications Hospital - puerperium of labor and [place] affecting delivery (39277) management of mother (4 sources.) Other Other Episodic Active ENOC FENECH [facility] Via complications specified , DO Princess of diseases and Hospital - (9 sources.) conditions [place] complicating (54293) , childbirth and the puerperium Other Other 10-14-2019 - Episodic Active BRIGIDA [facility] V ia complications specified Princess RAM of [facility] Hospital - (8 sources.) related [place] conditions, (69789) second trimester Other Other Episodic Active ENOC FENECH [facility] Via connective specified soft , DO [facility] tissue disease tissue Hospital - (5 sources.) disorders [place] (50660) Other Episodic Active ENOC FENECH [facility] Via complications related renal , DO Princess of disease, third Hospital - (4 sources.) trimester [place] (20265) Abdominal pain Right upper 10-14-2019 - Episodic Active KAYLA [facility] Via (18 sources.) quadrant pain Princess AVERY Translations: Hospital - [ PELVIC AND [place] PERINEAL PAIN, (16172) Pelvic pain affecting ] Other Unspecified 10-14-2019 - Episodic Active EDSON ESCOBEDO [facility] Via complications infection of DO [facility] of urinary tract Hospital - (8 sources.) in , [place] second (93071) trimester Other Vomiting of Episodic Active KHOA RUELAS [facility] Vi a complications , [employer] Princess of unspecified Hospital - (4 sources.) [place] (68500) Past or Other Problems Problem Normalized Date Last Normalized Normalized Provider Fa cility Classification Problem(s) Recorded Problem Problem Sta tus Duration Unclassified 35 weeks no information no information SHAILESH ALEJO CH Not Available (16 sources.) gestation of , (59761) Translations: [ 38 WEEKS GESTATION OF , LESS THAN 8 WEEKS GESTATION OF , 11 WEEKS GESTATION OF , 20 WEEKS GESTATION OF ] Residual Less than 8 no information no information KAYLA Not Available codes; weeks BRUEGGESENIA , (37472) unclassified gestation of MD (1 source.) Calculus of Urinary Episodic Completed SUKUMAR OSULLIVAN , Not Oxana ilable urinary tract calculus, (49091) (5 sources.) unspecified Procedures Procedure Normalized Procedure Procedure Result Performer Facility Date 08-21-2017 EXTRACTION OF POC, LOW no information no name [facility] Via [facility] CERVICAL, OPEN AP [facility] (24840) EXTRACTION OF POC, LOW no information no name Not [place] (21303) CERVICAL, OPEN 07-06-2018 [place] no information no name [facility] streptococcus group a Center [facility] (70663) Immunizations The data below is from unstructured sourcesNo immunization records. No Known Immunizations No Known Immunizations No Known Immunizations No Known Immunizations No Known Immunizations No Known Immunizations No Known Immunizations No Known Immunizations No Known Immunizations No Known Immunizations No Known Immunizations No Known Immunizations No Known Immunizations No Known Immunizations No Known Immunizations No Known Immunizations No Known Immunizations No Known Immunizations No Known Immunizations No Known Immunizations No Known Immunizations No Known Immunizations No Known Immunizations No Known Immunizations No Known Immunizations No Known Immunizations No Known Immunizations No Known Immunizations Results Test Name Value Interpretation Reference Range Date Time Fa cility (Normalized) (Normalized) (Medline Reference) not yet categorized on null Injected by 01/17~Stephanie, (no code) [facility] (69561) Lot # [id number] (no code) [facility] (54685) Site 02/27/2019~1154 (no code) [facility] th AM~LFA [facility] (36412) wbc lm.hpf (urine sed) [#/area] on 2019-07-22 WBC LM.HPF 3-5 (no code) 07-22-2019 [place] Via (Urine sed) 19:50-0400 [facility] [#/Area] (40490) urobilinogen auto test strip (u) [mass/vol] on 2019-07-22 Urobilinogen (U) 4.0 mg/dL (no code) 07-22-2019 [place] Via [Mass/Vol] 19:50-0400 [facility] (89987) urinalysis complete w reflex culture panel (u) on 2019-07-22 Urinalysis NO (no code) 07-22-2019 [place] Via complete W 19:50-0400 [facility] Reflex Culture (57810) panel - Urine specific gravity test strip (u) [rel density] on 2019-07-22 Specific gravity 1.025 (no code) 07-22-2019 [place] Via (U) [Rel 19:50-0400 [facility] density] (65997) rbc lm.hpf (urine sed) [#/area] on 2019-07-22 RBC LM.HPF NONE (no code) 07-22-2019 [place] Via (Urine sed) 19:50-0400 [facility] [#/Area] (56328) rbc lm ql (urine sed) on 2019-07-22 RBC Ql (U) Negative (no code) 07-22-2019 [place] Via 19:50-0400 [facility] (20510) protein test strip ql (u) on 2019-07-22 Protein Ql (U) Negative (no code) 07-22-2019 [place] V ia 19:50-0400 [facility] (61088) ph test strip (u) on 2019-07-22 pH (U) 7.0 [pH] (no code) 4.6 - 8 [pH] 07-22-2019 [place] Via 19:50-0400 [facility] (21131) not yet categorized on 2019-07-22 BLO trace-intact (no code) [facility] (09219) KET 03/29/21~cloudy~ (no code) [facility]~no~neg~[facility] g~neg (61904) ALEXUS neg~large (no code) [facility] (09872) Lot # [id number] (no code) [facility] (05445) SG 1.025 (no code) [facility] (68753) URO 1.0 (no code) [facility] (87261) nitrite test strip ql (u) on 2019-07-22 Nitrite Ql (U) Negative (no code) 07-22-2019 [place] V ia 19:50-0400 [facility] (88668) mucus lm ql (urine sed) on 2019-07-22 Mucus Ql (Urine Negative (no code) 07-22-2019 [place] Via sed) 19:50-0400 [facility] (25360) leukocyte esterase test strip ql (u) on 2019-07-22 Leukocyte 2+ (no code) 07-22-2019 [place] Via esterase Test 19:50-0400 [facility] strip Ql (U) (40175) laboratory on 2019-07-22 pH (Bld) 7.5 [pH] (no code) 7.38 - 7.42 [pH] [facility] (46498) Protein (U) trace (no code) [facility] [Mass/Vol] [facility] (84939) ketones auto test strip ql (u) on 2019-07-22 Ketones Auto Negative (no code) 07-22-2019 [place] Via test strip Ql 19:50-0400 [facility] (U) (59361) glucose auto test strip ql (u) on 2019-07-22 Glucose Auto Negative (no code) 07-22-2019 [place] Via test strip Ql 19:50-0400 [facility] (U) (81471) epithelial cells.squamous lm ql (urine sed) on 2019-07-22 Epithelial 2-5 (no code) 07-22-2019 [place] Via cells.squamous 19:50-0400 [facility] LM Ql (Urine (20826) sed) crystals lm ql (urine sed) on 2019-07-22 Crystals LM Ql PRESENT (no code) 07-22-2019 [place] V ia (Urine sed) 19:50-0400 [facility] (26132) color (u) on 2019-07-22 Color (U) YELLOW (no code) 07-22-2019 [place] Via 19:50-0400 [facility] (36245) clarity (u) on 2019-07-22 Clarity (U) CLEAR (no code) 07-22-2019 [place] Via 19:50-0400 [facility] (14496) casts lm ql (urine sed) on 2019-07-22 Casts LM Ql NONE (no code) 07-22-2019 [place] Via (Urine sed) 19:50-0400 [facility] (77348) calcium oxalate crystals lm ql (urine sed) on 2019-07-22 Calcium oxalate FEW (no code) 07-22-2019 [place] Via crystals LM Ql 19:50-0400 [facility] (Urine sed) (75563) bilirubin test strip ql (u) on 2019-07-22 Bilirubin Ql (U) Negative (no code) 07-22-2019 [place] Via 19:50-0400 [facility] (55699) bacteria lm ql (urine sed) on 2019-07-22 Bacteria LM Ql TRACE (no code) 07-22-2019 [place] V ia (Urine sed) 19:50-0400 [facility] (45389) bacteria identified cx nom (u) on 2019-07-22 Bacteria 3 or more (no code) 07-22-2019 [place] [facility] identified Cx isolates 19:50-0400 [facility] (U) (03490) amorphous sediment lm ql (urine sed) on 2019-07-22 Amorphous MOD KELLY (no code) 07-22-2019 [place] Via sediment LM Ql PHOSPHATE 19:50-0400 [facility] (Urine sed) (76951) not yet categorized on 2019-06-12 Control Negative (no code) [facility] (62424) not yet categorized on 2019-02-28 Exp date +~09/2020 (no code) [facility] (14952) Lot # [id number] (no code) [facility] (19107) RESULTS Positive (no code) [facility] (83600) strep a (in house) on 2018-07-06 STREP A (IN Negative (no code) 07-06-2018 [facility]) 13:00-0500 [facility] (91620) STREP A (IN + (no code) 07-06-2018 [facility]) 13:00-0500 [facility] (34598) STREP A (IN [id number] (no code) 07-06-2018 [facility]) 13:00-0500 [facility] (70020) STREP A (IN 10/2018 (no code) 07-06-2018 [facility]) 13:00-0500 [facility] (32046) not yet categorized on 2018-07-06 Exp date Negative (no code) [facility] (26944) thyroid on 2017-02-09 T4 free mass 1.09 ng/dL (no code) 0.9 - 2.2 ng/dL 02-09-2017 No t Available conc 08:160400 (74172) Thyrotropin Qn 1.320 (no code) 02-09-2017 Not Availab le 08:16-0400 (42884) imm/path on 2017-01-13 Bacteria Note (no code) 01-13-2017 Not Available identified Aer 17:040400 (05441) cx Nom (Genital specimen) Vital Signs Vital Sign Value Interpretation Reference Date Time Care Prov ider Facility (Normalized) (Normalized) Range BMI (Body Mass 27.1 kg/m2 (no code) 15 - 25 kg/m2 07-06-2018 [facility]ON K[facility]D [facility]) 10:05-0500 [address] [facility] (53232) Body 98.1 [degF] (no code) 97.8 - 99.0 07-06-2018 BORIS [facility] Temperature [degF] 10:05050 35865 [facility] (25693) Body weight 69.4 kg (no code) kg 07-06-2018 [facility] 10:05-0500 64104 [facility] (51089) Height (no code) 07-06-2018 [facility] 10:050500 30986 [facility] (53368) Interventions No Information Plan of Treatment Normalized Care Care Detail Care Activity Date Care Provider F acility Activity Bacteria identified no information no information LOCAL NO [place] Via Cx Nom (U) [facility] (72461) [facility] 12-04-2018 [facility] [address] [facility] DENTAL DENTAL [facility] (48731) Coronavirus Ab Qn no information no information LOCAL NO As cension Via (S) [facility] (27400) Patient Education OB OUTPATIENT no information LOCAL NO Asc ension Via DISCHARGE [facility] (87991) Goals Patient Goal Desired Goal no information no information Social History Normalized Code Original Code Date Value Tobacco smoking status Tobacco smoking status 07-23-2019 - Never smoked tobacco VTIS VTIS (finding) no information no information 04-27-2014 Denies Use no information no information 04-27-2014 No no information no information 07-23-2019 Never a Smoker Sex Assigned At Sex Assigned At no information F emale no information no information 10-14-2019 Denies Functional Status Status Assessment Result Care Provider Facility Functional status [place] Opioid-induced LOCAL NO Ascen barbie Via [facility] Sedation Scale (POSS) [facility] (04690) Awake and alert Mental Status Status Assessment Result Care Provider Facility Cognitive function [place] Opioid-induced LOCAL NO Asce nsion Via Princess Sedation Scale (POSS) [facility] (72003) Awake and alert Encounters Encounter Normalized Encounter Encounter Diagnosis Care Provi elenita Organization Date Type 11-06-2018 [facility] Unspecified DELMIS TAYLOR (no [facility] (no phone) nonsuppurative otitis phone) media, right ear 08-16-2018 [facility] Otalgia, right ear DELMIS TAYLOR (no [facility] (no phone) phone) 07-05-2018 [facility] Acute upper DELMIS TAYLOR (no [facility] (no phone) respiratory infection, phone) unspecified 06-04-2018 [facility] Mycoplasma infection, DELMIS TAYLOR (n o [facility] (no phone) unspecified site phone) 09-21-2018 [facility] Other lesions of oral AIDA FRASER (no [facility] CARE mucosa phone) CARE (no phone) 07-06-2018 [facility] Acute suppurative BORIS YOUNG (no [facility] C[facility] otitis media without phone) CARE (no phone) spontaneous rupture of ear drum, left ear 11-06-2018 [facility] Encounter for dental SALLIE NEARING (no [facility] DENTAL examination and phone) DENTAL (no esequiel ne) cleaning without abnormal findings 03-25-2018 [facility] no information Doctor Migrati on (no [facility] phone) (no phone) 06-10-2012 [facility] no information Doctor Migrati on (no [facility] phone) (no phone) 10-16-2019 Discharged Recurring no information (no phone) As cension Via [facility] (no phone) 10-16-2019 02-13-2017 Emergency department no information KHOA KEYS (no [facility] - patient visit phone) [facility] 02-13-2017 (no phone) 01-06-2017 Emergency department no information KAYLA CESPEDES [facility] - patient visit (no phone) [facility] 01-06-2017 (no phone) 04-26-2014 Emergency department no information no name no organization name - patient visit 04-26-2014 08-20-2017 Evaluation and no information ENOC TADEO DO [facility] Via [facility] (no [facility]) [facility] 08-23-2017 inpatient (no phone) 08-20-2017 Patient encounter no information no name no or ganization name 04-18-2017 Patient encounter no information no name no or ganization name 01-10-2017 Patient encounter no information no name no or ganization name NEGATED Patient encounter no information no name no or ganization name 11-27-2011 09-04-2011 Patient encounter no information no name no or ganization name - 11-26-2011 Patient encounter no information no name no organizat ion name 10-14-2019 Patient encounter no information ENOC Pearson [facility] procedure (no phone) [facility] (no phone) 07-26-2019 Patient encounter no information (no phone) Cj barbie Via [facility] procedure [facility] (no phone) 07-26-2019 07-26-2019 Patient encounter no information BRIGIDA YOUNG [facility] Via [facility] - procedure VA (no phone) [facility] 07-26-2019 (no phone) 07-22-2019 Patient encounter no information (no phone) Ascen barbie [facility] procedure [facility] (no phone) 07-22-2019 07-22-2019 Patient encounter no information EDSON ESCOBEDO DO ( no [facility] - procedure phone) (no phone) [facility] 07-22-2019 (no phone) 06-22-2019 Patient encounter no information [facility]CP [facility]no [facility]) [facility] (no phone) 06-12-2019 Patient encounter no information TR[facility]ITION PCP (no [facility] procedure phone) (no phone) [facility] (no phone) 06-09-2019 Patient encounter no information ROMAN KEYS [facility] procedure (no phone) [facility] (no phone) 04-10-2019 Patient encounter no information no name no or ganization name procedure 02-28-2019 Patient encounter no information no name no or ganization name procedure 02-27-2019 Patient encounter no information no name no or ganization name procedure 12-04-2018 Patient encounter no information no name no or ganization name procedure 11-06-2018 Patient encounter no information no name no or ganization name procedure 11-06-2018 Patient encounter no information no name no or ganization name procedure 09-21-2018 Patient encounter no information no name no or ganization name procedure 08-16-2018 Patient encounter no information no name no or ganization name procedure 07-06-2018 Patient encounter no information no name no or ganization name procedure 07-05-2018 Patient encounter no information no name no or ganization name procedure 06-04-2018 Patient encounter no information no name no or ganization name procedure 07-29-2017 Patient encounter no information ENOC Gomez SHWETHA Flood O [facility] - procedure (no phone) [facility] 07-29-2017 (no phone) 04-18-2017 Patient encounter no information ENOC TADEO Aleena O [facility] procedure (no phone) [facility] (no phone) 01-10-2017 Patient encounter no information SHAILESH GUTIERREZ MD (no [facility] procedure phone) [facility] (no phone) 01-06-2017 Patient encounter no information no name no or ganization name procedure 11-04-2018 Telephone encounter no information DELMIS TAYLOR ( no [facility] phone) DENTAL (no phone) 04-28-2018 Telephone encounter no information Doctor Migration (no [facility] phone) (no phone) no information Encounter for dental no name no organi zation name examination and cleaning without abnormal findings Medical Equipment The data below is from unstructured sourcesNo Medical Equipment Information availableNo Medical Equipment Information availableNo Medical Equipment Information availableNo Medical Equipment Information a vailableNo Medical Equipment Information available Payers Normalized Payer Value [facility] no information ([id number] Evaluation note Note Type Note Facility Evaluation No Assessments Information Available A scension note [facility] ([id number]) Advance Directives Directive Response Recor ded Date/Time Advance Directives No 9:57pm Resuscitation Status Full Code 04/26/14 9:57pm Directive Response Recor ded Date/Time Advance Directives No 9:55pm Resuscitation Status Full Code 01/06/17 9:55pm Directive Response Recor ded Date/Time Advance Directives No 11:52am Resuscitation Status Full Code 02/13/17 11:52am Directive Response Recor ded Date/Time Advance Directives No 5:23pm Resuscitation Status Full Code 07/29/17 5:23pm Directive Response Recor ded Date/Time Advance Directives No 5:20pm Health Care Power of [place] No 08/20/17 5:20pm Organ Donor Yes 08/20/17 5:20pm Resuscitation Status Full Code 08/20/17 5:20pm Advance Directive Response Recorded Date/Time Advance Directives No Ap ril 2017 5:20pm Health Care Power of [place] No August 20, 2017 5:20pm Organ Donor Yes August 202017 5:20pm Advance Directive Response Recorded Date/Time Advance Directives No Ju ne 2019 10:38am Health Care Power of [place] No October 14, 2019 10:38am Organ Donor Yes August 202017 5:20pm Resuscitation Status Full Code October 14, 2019 10:38am Discharge Instructions No hospital discharge instructions.No hospital discharge instruction information available.No hospital discharge instruction information available.No hospital discharge instruction information available.No hospital discharge instruction information available.No hospital discharge instruction information available.No hospital discharge instruction information available. Additional Source Comments This clinical document has been generated using CIV[employer] software that has been certified by the Office of the National Coordinator for Health Information Technology (ONC 15.99.04.3023.Diam.[id number]) and the National Committee for Tufter Operator (NCQA, as an eMeasure certified technology). FOR RECORDS PERTAINING TO PATIENTS WHO ARE OR HAVE BEEN ENROLLED IN A CHEMICAL D EPENDENCY/SUBSTANCE ABUSE PROGRAM, SOME INFORMATION MAY BE OMITTED. This clinica l summary was aggregated from multiple sources. Caution should be exercised in using it in the provision of clinical care. This summary normalizes information from multiple sources, and as a consequence, information in this document may ma terially change the coding, format and clinical context of patient data. In melissa tion, data may be omitted in some cases. CLINICAL DECISIONS SHOULD BE BASED ON T HE PRIMARY CLINICAL RECORDS. [employer]. provides no warranty or guara ntee of the accuracy or completeness of information in this document.The followi ng information is based on time limited clinical information UNRECOGNIZED CONTENT PROVIDED BELOW FOR UNRECOGNIZED SECTION MEDICAL (GENERAL) HISTORY Type Description Date Medical History Pelvic kidney-left. Dx at age 11. Medical History Kidney stones Type Description Date Medical History Pelvic kidney-left. Dx at age 11. Medical History Kidney stones Surgical History section 2017 UNRECOGNIZED CONTENT PROVIDED BELOW FOR UNRECOGNIZED SECTION REASON FOR VISIT Sore throat with white patches, ear pain-[place] TONEY
[2019-10-21] MEDS: LACTATED RINGERS 1,000 ML IV PRN ×2 (10:50→11:29)
--- OUTSIDE RECORDS SUMMARY | 2019-10-21 10:50 | XMS REPORT ---
Author Author Sherin KIDD Organization [facility] Address [address] [place] [address] Care Team Providers Care Forensic Artist Name Role Phone BORIS KIDD Unavailable PROBLEMS Type Condition ICD9-CM Code [id number] Code Onset Dates Condition S tatus SNOMED Code Problem Pelvic kidney Q63.2 Active 289156 07 ALLERGIES No Known Allergies ENCOUNTERS Encounter Location Date Diagnosis [facility] [id number] [place] [id number] Nov, [facility] [address] [place] [address] Oct, Right otitis media with effusion H65.91 [facility] [address] [id number] Oct, Dental examination Z01.20 [facility] [address] [id number] Oct, [facility] [address] [address] August, Mouth pain K13.79 [facility] [address] [place] [address] Jul, Right ear pain H92.01 [facility] [address] [id number] [place] [phone] Jun, Non-recurrent acute suppurat marvin otitis media of left ear without spontaneous rupture of tympanic membrane H66.002 and Sore throat J02.9 [facility] [address] [place] [address] 08 Jun, 2018 URI, acute J06.9 and Dysfunction of both eustachian tubes H69.83 [facility] [address] [place] [address] May, Mycoplasma infection A49.3 [facility] [address] [facility] [id number] [address] [place] [phone] Mar, [facility] [address] [id number] [address] [place] [phone] Feb, [facility] [address] [id number] [place] [phone] Jun, [facility] [id number] [place] [phone] Jan, [facility] [address] [address] Jan, 10 weeks gestation of pregna ncy Z3A.10 ; Subclinical hypothyroidism E03.9 and Pelvic kidney Q63.2 [place] [address] [address] [id number] [place] [phone] 18 Dec, 2016 Subclinical hypothyroidism E 03.9 [facility] [address] [id number] [place] [phone] 15 Dec, 2016 Subclinical hypothyroidism E 03.9 [place] [address] [address] [id number] [place] [phone] 14 Dec, 2016 Elevated TSH R94.6 and First trimester Z34.90 [place] [address] [address] [id number] [place] [phone] 13 Dec, 2016 First trimester Z3 4.90 ; Other specified related conditions, first trimester O26.891 and Pelvic and perineal pain R10.2 [facility] [place] [address] [facility] [id number] [address] [place] [phone] Dec, [facility] [address] [place] [phone] Dec, [facility] [id number] [place] [phone] Nov, test positive Z32. 01 [place] [address] [place] [address] 11 May, 2012 IMMUNIZATIONS No Known Immunizations SOCIAL HISTORY Never Assessed REASON FOR VISIT Sore throat with white patches, ear pain-[place] ZIEGLER PLAN OF CARE Activity Details Follow Up if not improving with PCP or reg follow up Reason: VITAL SIGNS Height 5'3" in 2018-07-06 Weight 153 lbs 2018-07-06 Temperature 98.1 degrees Fahrenheit 2018-07-06 Heart Rate 88 bpm 2018-07-06 Respiratory Rate 20 2018-07-06 BMI 27.1 kg/m2 2018-07-06 Blood pressure systolic 112 mmHg 2018-07-06 Blood pressure diastolic 70 mmHg 2018-07-06 MEDICATIONS Medication Instructions Dosage Frequency Start Date End Date Duration S tatus Vitamins - (Dis) Not-Taking Singulair 10 MG Orally Once a day 1 tablet 24h Jun, 30 days Active Amoxicillin 875 MG Orally every 12 hrs 1 tablet 12h Jun, 10 day(s) Active Flonase 50 mcg/act Nasally Once a day 2 sprays in each nostril 24h Jun, 90 days Not-Taking RESULTS Name Result Date Reference Range STREP A (IN HOUSE) 2018-07-06 STREP A negative Control + Lot # [id number] Exp date 10/2018 PROCEDURES Procedure Date Ordered Result Body Site STREP A ASSAY W/OPTIC July 06, 2018 INSTRUCTIONS MEDICATIONS ADMINISTERED No Known Medications MEDICAL (GENERAL) HISTORY Type Description Date Medical History Pelvic kidney-left. Dx at age 11. Medical History Kidney stones Surgical History section 2017
--- OUTSIDE RECORDS SUMMARY | 2019-10-21 10:50 | XMS REPORT ---
Author Author Sherin GUTIERREZ Organization [facility] Address [address] [place] [address] Care Team Providers Care Battery Checker Name Role Phone MATT SHAILESH Unavailable PROBLEMS Type Condition ICD9-CM Code [id number] Code Onset Dates Condition S tatus SNOMED Code Problem Subclinical hypothyroidism E03.9 Act marvin [id number] Problem Pelvic kidney Q63.2 Active 884935 07 Problem Need for immunization against rubella alone Z23 Active 221010676 ALLERGIES No Information ENCOUNTERS Encounter Location Date Diagnosis [place] [address] [id number] [place] [phone] Jun, [place] [address] [facility] [id number] [address] [place] [phone] Jan, [place] [address] [facility] [id number] [address] [place] [phone] 12 Jan, 2017 10 weeks gestation of pregna ncy Z3A.10 ; Subclinical hypothyroidism E03.9 and Pelvic kidney Q63.2 [place] [address] [place] [address] [id number] [address] [place] [phone] 18 Dec, 2016 Subclinical hypothyroidism E 03.9 [place] [address] [facility] [id number] [address] [place] [phone] 15 Dec, 2016 Subclinical hypothyroidism E 03.9 [place] [address] [facility] [id number] [address] [place] [phone] 14 Dec, 2016 Elevated TSH R94.6 and First trimester Z34.90 [place] [address] [facility] [id number] [address] [place] [phone] 13 Dec, 2016 First trimester Z3 4.90 ; Other specified related conditions, first trimester O26.891 and Pelvic and perineal pain R10.2 [facility] [address] [facility] [id number] [address] [place] [phone] Dec, [facility] [address] [facility] [id number] [address] [place] [phone] Dec, [facility] [address] [facility] [id number] [address] [place] [phone] Nov, test positive Z32. 01 IMMUNIZATIONS No Known Immunizations SOCIAL HISTORY Never Assessed REASON FOR VISIT Lab (walk-in) PLAN OF CARE VITAL SIGNS MEDICATIONS Unknown Medications RESULTS Name Result Date Reference Range THYROID PEROXIDASE (TPO) ANTIBODY 2017-01-15 Thyroid Peroxidase (TPO) Ab 9 0-34 PROCEDURES Procedure Date Ordered Result Body Site MICROSOMAL ANTIBODY Jan 15, 2017 VENIPUNCT, ROUTINE* Jan 15, 2017 INSTRUCTIONS MEDICATIONS ADMINISTERED No Known Medications MEDICAL (GENERAL) HISTORY Type Description Date Medical History Pelvic kidney-left. Dx at age 11. Medical History Kidney stones
--- OUTSIDE RECORDS SUMMARY | 2019-10-21 10:50 | XMS REPORT ---
Author Author Sherin GUTIERREZ Organization [facility] Address [address] [place] [address] Care Team Providers Care Coremaker Machine Name Role Phone MATTAMYSHAILESH Unavailable PROBLEMS Type Condition ICD9-CM Code [id number] Code Onset Dates Condition S tatus SNOMED Code Problem Subclinical hypothyroidism E03.9 Act marvin 14708281 Problem Pelvic kidney Q63.2 Active 365073 07 Problem Need for immunization against rubella alone Z23 Active 758107570 ALLERGIES No Known Allergies ENCOUNTERS Encounter Location Date Diagnosis [place] [address] [place] [phone] Jun, [place] [address] [facility] [id number] [address] [place] [phone] Jan, [place] [address] [facility] [id number] [address] [place] [phone] 12 Jan, 2017 10 weeks gestation of pregna ncy Z3A.10 ; Subclinical hypothyroidism E03.9 and Pelvic kidney Q63.2 [place] [address] [place] [address] [id number] [place] [phone] 18 Dec, 2016 Subclinical hypothyroidism E 03.9 [place] [address] [facility] [id number] [address] [place] [phone] 15 Dec, 2016 Subclinical hypothyroidism E 03.9 [place] [address] [facility] [id number] [address] [place] [phone] 14 Dec, 2016 Elevated TSH R94.6 and First trimester Z34.90 [place] [address] [facility] [id number] [address] [place] [phone] 13 Dec, 2016 First trimester Z3 4.90 ; Other specified related conditions, first trimester O26.891 and Pelvic and perineal pain R10.2 [facility] [address] [facility] [id number] [address] [place] [phone] Dec, [facility] [address] [facility] [id number] [address] [place] [phone] Dec, [facility] [address] [facility] [id number] [address] [place] [phone] Nov, test positive Z32. 01 IMMUNIZATIONS No Known Immunizations SOCIAL HISTORY Never Assessed REASON FOR VISIT OB-intake -- maryuri aquino, cramping x the last couple days PLAN OF CARE Activity Details Follow Up 4W, 4 Weeks Reason: VITAL SIGNS Height 5'3" in 2017-01-10 Weight 140.0 lbs 2017-01-10 Temperature 98.0 degrees Fahrenheit 2017-01-10 Heart Rate 76 bpm 2017-01-10 Respiratory Rate 18 2017-01-10 BMI 24.80 kg/m2 2017-01-10 Blood pressure systolic 110 mmHg 2017-01-10 Blood pressure diastolic 76 mmHg 2017-01-10 MEDICATIONS Unknown Medications RESULTS Name Result Date Reference Range URINE DRUG SCREEN (IN HOUSE) 2017-01-10 Lot # [id number] Exp date 03/2018 Control + COCAINE neg AMPH neg MTD neg THC neg OPIATE neg BENZO neg PCP neg BAR neg OXY neg MAMP neg TCA neg BUP neg MDMA neg UA LONG DIP (IN HOUSE) 2017-01-10 Lot # [id number] Exp date 08/2017 Clarity clear Color yellow Odor no GLU neg LUCITA neg KET neg SG 1.020 BLO neg pH 7.0 Protein 2.0 URO neg NIT neg ALEXUS Lot # Exp date TSH () 2017-01-10 TSH 2.770 0.450-4.500 PAP TEST, HPV IF ASCUS 2017-01-10 DIAGNOSIS: Specimen adequacy: Clinician provided ICD10: Performed by: QC reviewed by: . . Note: . T4 FREE 2017-01-10 T4,Free(Direct) 1.07 0.82-1.77 HCG, QUANTITATIVE 2017-01-10 hCG,Beta Subunit,Qnt,Serum 04354 CBC 2017-01-10 WBC 10.2 3.4-10.8 RBC 4.25 3.77-5.28 Hemoglobin 11.9 11.1-15.9 Hematocrit 36.3 34.0-46.6 MCV 85 79-97 MCH 28.0 26.6-33.0 MCHC 32.8 31.5-35.7 RDW 13.4 12.3-15.4 Platelets 283 150-379 Neutrophils 69 Lymphs 19 Monocytes 9 Eos 3 Basos 0 Neutrophils (Absolute) 6.9 1.4-7.0 Lymphs (Absolute) 1.9 0.7-3.1 Monocytes(Absolute) 0.9 0.1-0.9 Eos (Absolute) 0.3 0.0-0.4 Baso (Absolute) 0.0 0.0-0.2 Immature Granulocytes 0 Immature Grans (Abs) 0.0 0.0-0.1 ANTIBODY SCREEN 2017-01-10 Antibody Screen Negative Negative BLOOD TYPE/RH FACTOR 2017-01-10 ABO Grouping O Rh Factor Positive RUBELLA ANTIBODIES, IgG 2017-01-10 Rubella Antibodies, IgG <0.90 Immune > 0.99 CULTURE, GENITAL 2017-01-10 Genital Culture, Routine Final report Result 1 CULTURE, URINE 2017-01-10 Urine Culture, Routine Final report Result 1 No growth TRICHOMONAS (IN HOUSE) 2017-01-10 TRICHOMONAS negative Control + Lot # [id number] Exp date 01/2018 UA LONG DIP (IN HOUSE) 2017-01-10 Lot # [id number] Exp date 08/2017 Clarity clear Color yellow Odor no GLU neg LUCITA neg KET neg SG 1.020 BLO neg pH 7.0 Protein neg URO 2.0 NIT neg ALEXUS Lot # Exp Written Authorization 2017-01-10 Written Authorization PDF Report 2017-01-10 PDF Report1 LCLS BACTERIAL VAGINOSIS (IN HOUSE) 2017-01-10 RESULTS negative Control + Lot # [id number] Exp date 01/2018 Ultrasound : OB, Early <14 WEEKS 2017-01-10 TSH () 2017-01-10 TSH 2.770 0.450-4.500 PAP TEST, HPV IF ASCUS 2017-01-10 DIAGNOSIS: Specimen adequacy: Clinician provided ICD10: Performed by: QC reviewed by: . . Note: . T4 FREE 2017-01-10 T4,Free(Direct) 1.07 0.82-1.77 HCG, QUANTITATIVE 2017-01-10 hCG,Beta Subunit,Qnt,Serum 18696 CBC 2017-01-10 WBC 10.2 3.4-10.8 RBC 4.25 3.77-5.28 Hemoglobin 11.9 11.1-15.9 Hematocrit 36.3 34.0-46.6 MCV 85 79-97 MCH 28.0 26.6-33.0 MCHC 32.8 31.5-35.7 RDW 13.4 12.3-15.4 Platelets 283 150-379 Neutrophils 69 Lymphs 19 Monocytes 9 Eos 3 Basos 0 Neutrophils (Absolute) 6.9 1.4-7.0 Lymphs (Absolute) 1.9 0.7-3.1 Monocytes(Absolute) 0.9 0.1-0.9 Eos (Absolute) 0.3 0.0-0.4 Baso (Absolute) 0.0 0.0-0.2 Immature Granulocytes 0 Immature Grans (Abs) 0.0 0.0-0.1 ANTIBODY SCREEN 2017-01-10 Antibody Screen Negative Negative BLOOD TYPE/RH FACTOR 2017-01-10 ABO Grouping O Rh Factor Positive RUBELLA ANTIBODIES, IgG 2017-01-10 Rubella Antibodies, IgG <0.90 Immune > 0.99 CULTURE, GENITAL 2017-01-10 Genital Culture, Routine Final report Result 1 CULTURE, URINE 2017-01-10 Urine Culture, Routine Final report Result 1 No growth GC/CHLAM PROBE (STATE) 2017-01-10 CHLAMYDIA negative GC negative TRICHOMONAS (IN HOUSE) 2017-01-10 TRICHOMONAS negative Control + Lot # [id number] Exp date 01/2018 UA LONG DIP (IN HOUSE) 2017-01-10 Lot # [id number] Exp date 08/2017 Clarity clear Color yellow Odor no GLU neg LUCITA neg KET neg SG 1.020 BLO neg pH 7.0 Protein neg URO 2.0 NIT neg ALEXUS Lot # Exp Written Authorization 2017-01-10 Written Authorization PDF Report 2017-01-10 PDF Report1 LCLS BACTERIAL VAGINOSIS (IN HOUSE) 2017-01-10 RESULTS negative Control + Lot # [id number] Exp date 01/2018 Ultrasound : OB, Early <14 WEEKS 2017-01-10 TSH () 2017-01-10 TSH 2.770 0.450-4.500 PAP TEST, HPV IF ASCUS 2017-01-10 DIAGNOSIS: Specimen adequacy: Clinician provided ICD10: Performed by: QC reviewed by: . . Note: . T4 FREE 2017-01-10 T4,Free(Direct) 1.07 0.82-1.77 HCG, QUANTITATIVE 2017-01-10 hCG,Beta Subunit,Qnt,Serum 53509 CBC 2017-01-10 WBC 10.2 3.4-10.8 RBC 4.25 3.77-5.28 Hemoglobin 11.9 11.1-15.9 Hematocrit 36.3 34.0-46.6 MCV 85 79-97 MCH 28.0 26.6-33.0 MCHC 32.8 31.5-35.7 RDW 13.4 12.3-15.4 Platelets 283 150-379 Neutrophils 69 Lymphs 19 Monocytes 9 Eos 3 Basos 0 Neutrophils (Absolute) 6.9 1.4-7.0 Lymphs (Absolute) 1.9 0.7-3.1 Monocytes(Absolute) 0.9 0.1-0.9 Eos (Absolute) 0.3 0.0-0.4 Baso (Absolute) 0.0 0.0-0.2 Immature Granulocytes 0 Immature Grans (Abs) 0.0 0.0-0.1 ANTIBODY SCREEN 2017-01-10 Antibody Screen Negative Negative BLOOD TYPE/RH FACTOR 2017-01-10 ABO Grouping O Rh Factor Positive RUBELLA ANTIBODIES, IgG 2017-01-10 Rubella Antibodies, IgG <0.90 Immune > 0.99 CULTURE, GENITAL 2017-01-10 Genital Culture, Routine Final report Result 1 CULTURE, URINE 2017-01-10 Urine Culture, Routine Final report Result 1 No growth GC/CHLAM PROBE (STATE) 2017-01-10 CHLAMYDIA negative GC negative SYPHILIS (STATE) 2017-01-10 TRICHOMONAS (IN HOUSE) 2017-01-10 TRICHOMONAS negative Control + Lot # [id number] Exp date 01/2018 UA LONG DIP (IN HOUSE) 2017-01-10 Lot # [id number] Exp date 08/2017 Clarity clear Color yellow Odor no GLU neg LUCITA neg KET neg SG 1.020 BLO neg pH 7.0 Protein neg URO 2.0 NIT neg ALEXUS Lot # Exp HIV (STATE) 2017-01-10 HEP B SURFACE ANTIGEN (STATE) 2017-01-10 HEP B ANTIBODY non reactive HEP B ANTIBODY (RML) HEP B ANTIBODY (STATE) Written Authorization 2017-01-10 Written Authorization PDF Report 2017-01-10 PDF Report1 LCLS BACTERIAL VAGINOSIS (IN HOUSE) 2017-01-10 RESULTS negative Control + Lot # [id number] Exp date 01/2018 Ultrasound : OB, Early <14 WEEKS 2017-01-10 PROCEDURES Procedure Date Ordered Result Body Site RUBELLA ANTIBODY Jan 10, 2017 COMPLETE CBC W/AUTO DIFF WBC Jan 10, 2017 BLOOD TYPING, RH (D) Jan 10, 2017 RBC ANTIBODY SCREEN Jan 10, 2017 URINE CULTURE/COLONY COUNT Jan 10, 2017 No Charge Jan 10, 2017 ASSAY THYROID STIM HORMONE Jan 10, 2017 BLOOD TYPING, ABO Jan 10, 2017 CULTURE, BACTERIA, OTHER Jan 10, 2017 DRUG TEST PRSMV DIR OPT OBS Jan 10, 2017 TRICHOMONAS ASSAY W/OPTIC Jan 10, 2017 SPECIMEN HANDLING Jan 10, 2017 URINALYSIS, AUTO, W/O SCOPE Jan 10, 2017 CHORIONIC GONADOTROPIN TEST Jan 10, 2017 VENIPUNCT, ROUTINE* Jan 10, 2017 INSTRUCTIONS MEDICATIONS ADMINISTERED No Known Medications MEDICAL (GENERAL) HISTORY Type Description Date Medical History Pelvic kidney-left. Dx at age 11. Medical History Kidney stones
--- OUTSIDE RECORDS SUMMARY | 2019-10-21 10:50 | XMS REPORT ---
Author Author Sherin GUTIERREZ Organization [facility] Address [address] [place] [address] Care Team Providers Care Optical Worker Name Role Phone MATT SHAILESH Unavailable PROBLEMS Type Condition ICD9-CM Code QXE27-TM Code Onset Dates Condition S tatus SNOMED Code Problem Subclinical hypothyroidism E03.9 Act marvin 41811620 Problem Pelvic kidney Q63.2 Active 202361 07 Problem Need for immunization against rubella alone Z23 Active 140079534 ALLERGIES No Information ENCOUNTERS Encounter Location Date Diagnosis [place] [address] [place] [id number] [place] [phone] Jun, [place] [address] [address] [facility] [id number] [address] [place] [phone] Jan, [place] [address] [address] [facility] [id number] [address] [place] [phone] 12 Jan, 2017 10 weeks gestation of pregna ncy Z3A.10 ; Subclinical hypothyroidism E03.9 and Pelvic kidney Q63.2 [place] [address] [address] [place] [id number] [place] [phone] 18 Dec, 2016 Subclinical hypothyroidism E 03.9 [place] [address] [address] [facility] [id number] [address] [place] [phone] 15 Dec, 2016 Subclinical hypothyroidism E 03.9 [place] [address] [address] [facility] [id number] [address] [place] [phone] 14 Dec, 2016 Elevated TSH R94.6 and First trimester Z34.90 [place] [address] [address] [facility] [id number] [address] [place] [phone] 13 Dec, 2016 First trimester Z3 4.90 ; Other specified related conditions, first trimester O26.891 and Pelvic and perineal pain R10.2 [facility] [address] [facility] [id number] [address] [place] [phone] Dec, [facility] [address] [facility] [id number] [address] [place] [phone] Dec, [facility] [address] [facility] [id number] [address] [place] [phone] Nov, test positive Z32. 01 IMMUNIZATIONS No Known Immunizations SOCIAL HISTORY Never Assessed REASON FOR VISIT OB f/u-4 wk -- maryuri aquino PLAN OF CARE Activity Details Follow Up 4 Weeks, 4 Weeks Reason: VITAL SIGNS Height 5'3" in 2017-02-08 Weight 142.0 lbs 2017-02-08 Temperature 97.7 degrees Fahrenheit 2017-02-08 Heart Rate 68 bpm 2017-02-08 Respiratory Rate 22 2017-02-08 BMI 25.15 kg/m2 2017-02-08 Blood pressure systolic 106 mmHg 2017-02-08 Blood pressure diastolic 65 mmHg 2017-02-08 MEDICATIONS Medication Instructions Dosage Frequency Start Date End Date Duration S tatus Vitamins - (Dis) Active RESULTS Name Result Date Reference Range UA OB DIP (IN HOUSE) 2017-02-08 Glucose negative Protein negative TSH W/ FREE T4 2017-02-08 TSH 1.320 0.450-4.500 T4,Free(Direct) 1.09 0.82-1.77 PROCEDURES Procedure Date Ordered Result Body Site URINE-NO MICRO Feb 08, 2017 LAB NOT BILLED BY [facility] Feb 08, 2017 VENIPUNCT, ROUTINE* Feb 08, 2017 INSTRUCTIONS MEDICATIONS ADMINISTERED No Known Medications MEDICAL (GENERAL) HISTORY Type Description Date Medical History Pelvic kidney-left. Dx at age 11. Medical History Kidney stones
--- OUTSIDE RECORDS SUMMARY | 2019-10-21 10:50 | XMS REPORT ---
Author Author Sherin LOPEZ [facility] Address [address] [place] [address] Care Team Providers Care Electrical Instrument Technician Name Role Phone CAYLA LOPEZ Unavailable PROBLEMS Type Condition ICD9-CM Code [id number] Code Onset Dates Condition S tatus SNOMED Code Problem Subclinical hypothyroidism E03.9 Act marvin 44998786 Problem Pelvic kidney Q63.2 Active 471890 07 Problem Need for immunization against rubella alone Z23 Active [id number] ALLERGIES No Information ENCOUNTERS Encounter Location Date Diagnosis [place] [address] [place] [id number] [address] [place] [phone] Jun, [place] [address] [facility] [id number] [address] [place] [phone] Jan, [place] [address] [facility] [id number] [address] [place] [phone] Jan, 10 weeks gestation of pregna ncy Z3A.10 ; Subclinical hypothyroidism E03.9 and Pelvic kidney Q63.2 [place] [address] [place] [id number] [address] [place] [phone] 18 Dec, 2016 Subclinical hypothyroidism E 03.9 [place] [address] [facility] [id number] [address] [place] [phone] 15 Dec, 2016 Subclinical hypothyroidism E 03.9 [place] [address] [facility] [id number] [address] [place] [phone] 14 Dec, 2016 Elevated TSH R94.6 and First trimester Z34.90 [place] [address] [facility] [id number] [address] [place] [phone] 13 Dec, 2016 First trimester Z3 4.90 ; Other specified related conditions, first trimester O26.891 and Pelvic and perineal pain R10.2 [facility] [address] [facility] [id number] [address] [place] [phone] Dec, [facility] [address] [facility] [id number] [address] [place] [phone] Dec, [facility] [address] [facility] [id number] [address] [place] [phone] Nov, test positive Z32. 01 IMMUNIZATIONS No Known Immunizations SOCIAL HISTORY Never Assessed REASON FOR VISIT Requests return call PLAN OF CARE VITAL SIGNS MEDICATIONS Unknown Medications RESULTS No Results PROCEDURES No Known procedures INSTRUCTIONS MEDICATIONS ADMINISTERED No Known Medications MEDICAL (GENERAL) HISTORY Type Description Date Medical History Pelvic kidney-left. Dx at age 11. Medical History Kidney stones
--- OUTSIDE RECORDS SUMMARY | 2019-10-21 10:50 | XMS REPORT ---
Author Author Sherin GUTIERREZ Organization [facility] Address [address] [place] [address] Care Team Providers Care Sash Finisher Name Role Phone MATT SHAILESH Unavailable PROBLEMS Type Condition ICD9-CM Code [id number] Code Onset Dates Condition S tatus SNOMED Code Problem Subclinical hypothyroidism E03.9 Act marvin [id number] Problem Pelvic kidney Q63.2 Active 857266 07 Problem Need for immunization against rubella alone Z23 Active [id number] ALLERGIES No Information ENCOUNTERS Encounter Location Date Diagnosis [place] [address] [place] [id number] [address] [place] [phone] Jun, [place] [address] [facility] [id number] [address] [place] [phone] Jan, [place] [address] [facility] [id number] [address] [place] [phone] 12 Jan, 2017 10 weeks gestation of pregna ncy Z3A.10 ; Subclinical hypothyroidism E03.9 and Pelvic kidney Q63.2 [place] [address] [place] [id number] [address] [place] [phone] 18 Dec, 2016 Subclinical hypothyroidism E 03.9 [place] [address] [facility] [id number] [address] [place] [phone] 15 Dec, 2016 Subclinical hypothyroidism E 03.9 [place] [address] [facility] [id number] [address] [place] [phone] 14 Dec, 2016 Elevated TSH R94.6 and First trimester Z34.90 [place] [address] [facility] [id number] [address] [place] [phone] 13 Dec, 2016 First trimester Z3 4.90 ; Other specified related conditions, first trimester O26.891 and Pelvic and perineal pain R10.2 [facility] [address] [facility] [id number] [address] [place] [phone] Dec, [facility] [address] [facility] [id number] [address] [place] [phone] Dec, [facility] [address] [facility] [id number] [address] [place] [phone] Nov, test positive Z32. 01 IMMUNIZATIONS No Known Immunizations SOCIAL HISTORY Never Assessed REASON FOR VISIT OB appt PLAN OF CARE VITAL SIGNS MEDICATIONS Unknown Medications RESULTS No Results PROCEDURES No Known procedures INSTRUCTIONS MEDICATIONS ADMINISTERED No Known Medications MEDICAL (GENERAL) HISTORY Type Description Date Medical History Pelvic kidney-left. Dx at age 11. Medical History Kidney stones
--- OUTSIDE RECORDS SUMMARY | 2019-10-21 10:50 | XMS REPORT ---
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 Active 503366 07 Problem Need for immunization against rubella alone Z23 Active 204259412 ALLERGIES No Information ENCOUNTERS Encounter Location Date Diagnosis [place] [address] [place] [id number] [address] [place] [phone] Jun, [place] [address] [facility] [id number] [address] [place] [phone] Jan, [place] [address] [facility] [id number] [address] [place] [phone] 12 Jan, 2017 10 weeks gestation of pregna ncy Z3A.10 ; Subclinical hypothyroidism E03.9 and Pelvic kidney Q63.2 [place] [address] [place] [id number] [address] [place] [phone] 18 Dec, 2016 Subclinical hypothyroidism E 03.9 [place] [address] [facility] [id number] [address] [place] [phone] 15 Dec, 2016 Subclinical hypothyroidism E 03.9 [place] [address] [facility] [id number] [address] [place] [phone] 14 Dec, 2016 Elevated TSH R94.6 and First trimester Z34.90 [place] [address] [address] [facility] [id number] [address] [place] [phone] 13 Dec, 2016 First trimester Z3 4.90 ; Other specified related conditions, first trimester O26.891 and Pelvic and perineal pain R10.2 [facility] [address] [facility] [id number] [address] [place] [phone] Dec, [facility] [address] [facility] [id number] [address] [place] [phone] Dec, [facility] [address] [facility] [id number] [address] [place] [phone] Nov, test positive Z32. 01 IMMUNIZATIONS No Known Immunizations SOCIAL HISTORY Never Assessed REASON FOR VISIT Lab orders PLAN OF CARE VITAL SIGNS MEDICATIONS Unknown Medications RESULTS No Results PROCEDURES No Known procedures INSTRUCTIONS MEDICATIONS ADMINISTERED No Known Medications MEDICAL (GENERAL) HISTORY Type Description Date Medical History Pelvic kidney-left. Dx at age 11. Medical History Kidney stones
--- OUTSIDE RECORDS SUMMARY | 2019-10-21 10:50 | XMS REPORT ---
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 Active 738429 07 Problem Need for immunization against rubella alone Z23 Active [id number] ALLERGIES No Information ENCOUNTERS Encounter Location Date Diagnosis [place] [address] [place] [id number] [address] [place] [phone] Jun, [place] [address] [facility] [id number] [address] [place] [phone] Jan, [place] [address] [facility] [id number] [address] [place] [phone] 12 Jan, 2017 10 weeks gestation of pregna ncy Z3A.10 ; Subclinical hypothyroidism E03.9 and Pelvic kidney Q63.2 [place] [address] [place] [id number] [address] [place] [phone] 18 Dec, 2016 Subclinical hypothyroidism E 03.9 [place] [address] [facility] [id number] [address] [place] [phone] 15 Dec, 2016 Subclinical hypothyroidism E 03.9 [place] [address] [facility] [id number] [address] [place] [phone] 14 Dec, 2016 Elevated TSH R94.6 and First trimester Z34.90 [place] [address] [facility] [id number] [address] [place] [phone] 13 Dec, 2016 First trimester Z3 4.90 ; Other specified related conditions, first trimester O26.891 and Pelvic and perineal pain R10.2 [facility] [address] [facility] [id number] [address] [place] [phone] Dec, [facility] [address] [facility] [id number] [address] [place] [phone] Dec, [facility] [address] [facility] [id number] [address] [place] [phone] Nov, test positive Z32. 01 IMMUNIZATIONS No [...]
--- OUTSIDE RECORDS SUMMARY | 2019-10-21 10:50 | XMS REPORT | Continuity of Care Document ---
Demographics Preferred Language Unknown Marital Status Unknown Congregational Affiliation Unknown Race Unknown Ethnic Group Unknown Author Organization Unknown Address Unknown Phone Unavailable Allergies Active Description Code Type Severity Reaction Onset Reported/Identified Relationship to Patient Clinical Status Yes No Known Drug Allergies [id number] Drug Allergy Unknown N/A 10/14/2019 Medications There is no data. Problems Date Dx Coded Attending Type Code Diagnosis Diagnosed By 03/29/1447 ENOC TADEO DO Ot Z01.818 ENCOUNTER FOR OTHER PREPROCEDURAL EXAMIN 03/29/1447 ENOC TADEO DO Ot Z11.59 ENCOUNTER FOR SCREENING FOR OTHER VIRAL 11/26/2011 Ot 592.9 URIN ALISE CALCULUS NOS 04/26/2014 Ot 592.9 04/26/2014 Ot 592.9 04/26/2014 KHOA RUELAS APRN Ot 382 .9 OTITIS MEDIA NOS 04/26/2014 KHOA RUELAS CAR WIPER Ot 388.70 OTALGIA NOS 04/26/2014 Ot 592.9 05/21/2014 Ot 592.9 06/08/2014 Ot 592.9 06/08/2014 Ot 592.9 06/17/2014 Ot 592.9 06/18/2014 Ot 592.9 01/06/2017 Ot 592.9 URIN ALISE CALCULUS NOS 01/07/2017 GENA GIANG, KAYLA Bates Ot J02.9 ACUTE PHARYNGITIS, UNSPECIFIED 01/07/2017 KAYLA AVERY MD Ot K59.00 CONSTIPATION, UNSPECIFIED 01/07/2017 KAYLA AVERY MD Ot O26.891 OTH RELATED CONDITIONS, FIRST 01/07/2017 KAYLA AVERY MD Ot O99.511 DISEASES OF THE RESP SYS COMP , 01/07/2017 KAYLA AVERY MD Ot O99.611 DISEASES OF THE DGSTV SYS COMP 01/07/2017 KAYLA AVERY MD Ot R10.2 PELVIC AND PERINEAL PAIN 01/07/2017 BRUEGGEMANN MD, KAYLA T Ot Z3A.01 LESS THAN 8 WEEKS GESTATION OF 01/08/2017 KAYLA AVERY MD Ot J02.9 ACUTE PHARYNGITIS, UNSPECIFIED 01/08/2017 KAYLA AVERY MD Ot K59.00 CONSTIPATION, UNSPECIFIED 01/08/2017 KAYLA AVERY MD Ot O26.891 OTH RELATED CONDITIONS, FIRST 01/08/2017 KAYLA AVERY MD Ot O99.511 DISEASES OF THE RESP SYS COMP , 01/08/2017 KAYLA AVERY MD Ot O99.611 DISEASES OF THE DGSTV SYS COMP 01/08/2017 KAYLA AVERY MD Ot R10.2 PELVIC AND PERINEAL PAIN 01/08/2017 KAYLA AVERY MD Ot Z3A.01 LESS THAN 8 WEEKS GESTATION OF 01/16/2017 SHAILESH GUTIERREZ MD Ot O26.891 OTH RELATED CONDITIONS, FIRST 01/16/2017 SHAILESH GUTIERREZ MD Ot R10 .2 PELVIC AND PERINEAL PAIN 01/16/2017 SHAILESH GUTIERREZ MD Ot Z3A.01 LESS THAN 8 WEEKS GESTATION OF 02/06/2017 Ot 592.9 URIN ALISE CALCULUS NOS 02/06/2017 SHAILESH GUTIERREZ MD Ot O26.891 OTH RELATED CONDITIONS, FIRST 02/06/2017 SHAILESH GUTIERREZ MD Ot R10 .2 PELVIC AND PERINEAL PAIN 02/06/2017 SHAILESH GUTIERREZ MD Ot Z3A.01 LESS THAN 8 WEEKS GESTATION OF 02/13/2017 Ot 592.9 URIN ALISE CALCULUS NOS 02/13/2017 SHAILESH GUTIERREZ MD Ot O26.891 OTH RELATED CONDITIONS, FIRST 02/13/2017 SHAILESH GUTIERREZ MD Ot R10 .2 PELVIC AND PERINEAL PAIN 02/13/2017 SHAILESH GUTIERREZ MD Ot Z3A.01 LESS THAN 8 WEEKS GESTATION OF 02/13/2017 KHOA RUELAS APRN Ot O21 .9 VOMITING OF , UNSPECIFIED 02/13/2017 KHOA RUELAS APRN Ot R07.89 OTHER CHEST PAIN 02/13/2017 KHOA RUELAS CAR WIPER Ot Z3A.11 11 WEEKS GESTATION OF 02/14/2017 SHAILESH GUTIERREZ MD Ot O26.891 OTH RELATED CONDITIONS, FIRST 02/14/2017 SHAILESH GUTIERREZ MD Ot R10 .2 PELVIC AND PERINEAL PAIN 02/14/2017 SHAILESH GUTIERREZ MD Ot Z3A.01 LESS THAN 8 WEEKS GESTATION OF 02/14/2017 KHOA RUELAS CAR WIPER Ot O21 .9 VOMITING OF , UNSPECIFIED 02/14/2017 KHOA RUELAS CAR WIPER Ot R07.89 OTHER CHEST PAIN 02/14/2017 KHOA RUELAS APRN Ot Z3A.11 11 WEEKS GESTATION OF 02/21/2017 SHAILESH GUTIERREZ MD Ot O26.891 OTEvelina RELATED CONDITIONS, FIRST 02/21/2017 SHAILESH GUTIERREZ MD Ot R10 .2 PELVIC AND PERINEAL PAIN 02/21/2017 SHAILESH GUTIERREZ MD Ot Z3A.01 LESS THAN 8 WEEKS GESTATION OF 04/14/2017 Ot 592.9 URIN ALISE CALCULUS NOS 04/14/2017 SHAILESH GUTIERREZ MD Ot O26.891 OTH RELATED CONDITIONS, FIRST 04/14/2017 SHAILESH GUTIERREZ MD Ot R10 .2 PELVIC AND PERINEAL PAIN 04/14/2017 SHAILESH GUTIERREZ MD Ot Z3A.01 LESS THAN 8 WEEKS GESTATION OF 05/02/2017 ENOC TADEO DO Ot O99.89 OT DISEASES AND CONDITIONS COMPL PREG/C 05/02/2017 YAMILETHECH ENOC GANDHI Ot 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 05/02/2017 ENOC TADEO DO Ot Z3A.20 20 WEEKS GESTATION OF 07/29/2017 SHAILESH GUTIERREZ MD Ot O26.891 OT RELATED CONDITIONS, FIRST 07/29/2017 SHAILESH GUTIERREZ MD Ot R10 .2 PELVIC AND PERINEAL PAIN 07/29/2017 SHAILESH GUTIERREZ MD Ot Z3A.01 LESS THAN 8 WEEKS GESTATION OF 07/29/2017 ENOC TADEO DO Ot O99.89 OTH DISEASES AND CONDITIONS COMPL PREG/C 07/29/2017 FENECH ENOC GANDHI Ot 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 07/29/2017 SHWETHA GANDHI ENOC Gomez Ot Z3A.20 20 WEEKS GESTATION OF 07/29/2017 SHWETHA GANDHIENOC Ot M79.89 OTHER SPECIFIED SOFT TISSUE DISORDERS 07/29/2017 SHWETHA GANDHIENOC Ot O99.89 OTH DISEASES AND CONDITIONS COMPL PREG/C 07/29/2017 SHWETHA GANDHIENOC Ot R10.2 PELVIC AND PERINEAL PAIN 07/29/2017 SHWETHA GANDHI ENOC Patricia Ot Z3A.35 35 WEEKS GESTATION OF 07/31/2017 SHWETHA GANDHIENOC Ot M79.89 OTHER SPECIFIED SOFT TISSUE DISORDERS 07/31/2017 SHWETHA GANDHIENOC Ot O99.89 OTH DISEASES AND CONDITIONS COMPL PREG/C 07/31/2017 SHWETHA GANDHIENOC Ot R10.2 PELVIC AND PERINEAL PAIN 07/31/2017 SHWETHA GANDHI ENOC Patricia Ot Z3A.35 35 WEEKS GESTATION OF 07/31/2017 SHWETHA GANDHIENOC Ot M79.89 OTHER SPECIFIED SOFT TISSUE DISORDERS 07/31/2017 SHWETHA GANDHIENOC Ot O99.89 OTH DISEASES AND CONDITIONS COMPL PREG/C 07/31/2017 SHWETHA GANDHIENOC Ot R10.2 PELVIC AND PERINEAL PAIN 07/31/2017 SHWETHA GANDHI ENOC Gomez Ot Z3A.35 35 WEEKS GESTATION OF 08/23/2017 SHWETHA ENOC GANDHI Ot D6 2 ACUTE POSTHEMORRHAGIC ANEMIA 08/23/2017 SHWETHA ENOC GANDHI Ot O14.93 UNSPECIFIED PRE-ECLAMPSIA, THIRD TRIMEST 08/23/2017 ENOC TADEO DO Ot 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, THIRD T 08/23/2017 ENOC TADEO DO Ot O61.0 FAILED MEDICAL INDUCTION OF LABOR 08/23/2017 YAMILETHPAM ENOC GANDHI Ot O69.81X0 LABOR AND DEL COMP BY CORD AROUND NECK, 08/23/2017 ENOC TADEO DO Ot O75.89 OTHER SPECIFIED COMPLICATIONS OF LABOR A 08/23/2017 ENOC TADEO DO Ot O90.89 OTH COMPLICATIONS OF THE PUERPERIUM, NEC 08/23/2017 ENOC TADEO DO Ot O99.03 ANEMIA COMPLICATING THE PUERPERIUM 08/23/2017 ENOC TADEO DO Ot 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 08/23/2017 ENOC TADEO DO Ot R10.11 RIGHT UPPER QUADRANT PAIN 08/23/2017 ENOC TADEO DO Ot Z2 3 ENCOUNTER FOR IMMUNIZATION 08/23/2017 ENOC TADEO DO Ot Z37.0 SINGLE LIVE 08/23/2017 ENOC TADEO DO Ot Z3A.38 38 WEEKS GESTATION OF 05/14/2019 SHAILESH GUTIERREZ MD Ot O26.891 OT RELATED CONDITIONS, FIRST 05/14/2019 SHAILESH GUTIERREZ MD Ot R10 .2 PELVIC AND PERINEAL PAIN 05/14/2019 SHAILESH GUTIERREZ MD Ot Z3A.01 LESS THAN 8 WEEKS GESTATION OF 05/29/2019 SHAILESH GUTIERREZ MD Ot O26.891 OTEvelina RELATED CONDITIONS, FIRST 05/29/2019 SHAILESH GUTIERREZ MD Ot R10 .2 PELVIC AND PERINEAL PAIN 05/29/2019 SHAILESH GUTIERREZ MD Ot Z3A.01 LESS THAN 8 WEEKS GESTATION OF 06/10/2019 ROMAN BANKS CAR WIPER Ot Z36.89 ENCOUNTER FOR OTHER SPECIFIED 06/10/2019 ROMAN BANKS CAR WIPER Ot Z3A.19 19 WEEKS GESTATION OF 06/15/2019 ROMAN BANKS CAR WIPER Ot Z36.89 ENCOUNTER FOR OTHER SPECIFIED 06/15/2019 ROMAN BANKS CAR WIPER Ot Z3A.19 19 WEEKS GESTATION OF 07/14/2019 ROMAN BANKS CAR WIPER Ot Z36.89 ENCOUNTER FOR OTHER SPECIFIED 07/14/2019 ROMAN BANKS CAR WIPER Ot Z3A.19 19 WEEKS GESTATION OF 07/22/2019 EDSON ESCOBEDO DO Ot O23.4 2 UNSP INFCT OF URINARY TRACT IN 07/22/2019 EDSON ESCOBEDO DO Ot Z3A.2 6 26 WEEKS GESTATION OF 07/26/2019 BRIGIDA RAM MD Ot O26.892 OT RELATED CONDITIONS, SECOND 08/01/2019 BRIGIDA RAM MD Ot O26.892 OT RELATED CONDITIONS, SECOND 08/01/2019 SHAILESH GUTIERREZ MD Ot O26.891 OT RELATED CONDITIONS, FIRST 08/01/2019 SHAILESH GUTIERREZ MD Ot R10 .2 PELVIC AND PERINEAL PAIN 08/01/2019 SHAILESH GUTIERREZ MD Ot Z3A.01 LESS THAN 8 WEEKS GESTATION OF 08/01/2019 FENECH DO, ENOC S Ot O99.89 OT DISEASES AND CONDITIONS COMPL PREG/C 08/01/2019 FENECH DO, ENOC S Ot 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 08/01/2019 FENECH DO, ENOC S Ot Z3A.20 20 WEEKS GESTATION OF 08/01/2019 SHAILESH GUTIERREZ MD Ot O26.891 OT RELATED CONDITIONS, FIRST 08/01/2019 SHAILESH GUTIERREZ MD Ot R10 .2 PELVIC AND PERINEAL PAIN 08/01/2019 SHAILESH GUTIERREZ MD Ot Z3A.01 LESS THAN 8 WEEKS GESTATION OF 08/01/2019 FENECH DO, ENOC S Ot O99.89 OT DISEASES AND CONDITIONS COMPL PREG/C 08/01/2019 FENECH DO, ENOC S Ot 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 08/01/2019 FENECH DO, ENOC S Ot Z3A.20 20 WEEKS GESTATION OF 08/01/2019 ROMAN BANKS CAR WIPER Ot Z36.89 ENCOUNTER FOR OTHER SPECIFIED 08/01/2019 ROMAN BANKS CAR WIPER Ot Z3A.19 19 WEEKS GESTATION OF 10/14/2019 SHAILESH GUTIERREZ MD Ot O26.891 OT RELATED CONDITIONS, FIRST 10/14/2019 SHAILESH GUTIERREZ MD Ot R10 .2 PELVIC AND PERINEAL PAIN 10/14/2019 SHAILESH GUTIERREZ MD Ot Z3A.01 LESS THAN 8 WEEKS GESTATION OF 10/14/2019 ROMAN BANKS CAR WIPER Ot Z36.89 ENCOUNTER FOR OTHER SPECIFIED 10/14/2019 ROMAN BANKS APRN Ot Z3A.19 19 WEEKS GESTATION OF Procedures Code Description Performed By Per formed On [id number] EX TRACTION OF POC, LOW CERVICAL, OPEN AP 08/21/2017 Results Test Result Range Streptococcus pyogenes antigen detection - 01/06/17 22:09 Streptococcus pyogenes antigen detection NEGATIVE NEGATIVE Bacterial throat culture - 01/06/17 22:0 9 Bacterial throat culture NBS NRG Urine beta human chorionic gonadotropin (hCG) measurement - 01/06/17 23:41 Urine beta human chorionic gonadotropin (hCG) measurem ent POSITIVE NEGATIVE Complete urinalysis with reflex to cultu re - 01/06/17 23:41 Urine color determination YELLOW NRG Urine clarity determination SLIGHTLY CLOUDY NRG Urine pH measurement by test strip 7 5-9 Specific gravity of urine by test strip 1.010 1.016-1.022 Urine protein assay by test strip, semi-quantitative NEGATIVE NEGATIVE Urine glucose detection by automated test strip NE GATIVE NEGATIVE Erythrocytes detection in urine sediment by light micr oscopy NEGATIVE NEGATIVE Urine ketones detection by automated test strip NE GATIVE NEGATIVE Urine nitrite detection by test strip NEGATIVE NEGATIVE Urine total bilirubin detection by test strip NEGA TIVE NEGATIVE Urine urobilinogen measurement by automated test strip (mass/volume) NORMAL NORMAL Urine leukocyte esterase detection by dipstick NEG ATIVE NEGATIVE Automated urine sediment erythrocyte cou nt by microscopy (number/high power field) NONE NRG Automated urine sediment leukocyte count by microscopy (number/high power field) NONE NRG Bacteria detection in urine sediment by light microsco py NEGATIVE NRG Squamous epithelial cells detection in u rine sediment by light microscopy 2-5 NRG Crystals detection in urine sediment by light microsco py NONE NRG Casts detection in urine sediment by light microscopy NONE NRG Mucus detection in urine sediment by light microscopy SMALL NRG Complete urinalysis with reflex to culture NO NRG Genital Culture, Routine - 01/10/17 15:5 7 Genital Culture, Routine Note Thyroxine (T4) Free, Direct, S - 7 15:57 T4,Free(Direct) 1.07 ng/dL 0.82-1.77 Written Authorization - 01/10/17 15:57 Written Authorization Comment Urine Culture, Routine - 01/10/17 15:57 Urine Culture, Routine Note CBC With Differential/Platelet - 7 15:57 WBC 10.2 x10E3/uL 3.4-10.8 RBC 4.25 x10E6/uL 3.77-5.28 Hemoglobin 11.9 g/dL 11.1-15.9 Hematocrit 36.3 % 34.0-46.6 MCV 85 fL 79-97 MCH 28.0 pg 26.6-33.0 MCHC 32.8 g/dL 31.5-35.7 RDW 13.4 % 12.3-15.4 Platelets 283 x10E3/uL 150-379 Neutrophils 69 % Lymphs 19 % Monocytes 9 % Eos 3 % Basos 0 % Neutrophils (Absolute) 6.9 x10E3/uL 1.4- 7.0 Lymphs (Absolute) 1.9 x10E3/uL 0.7-3.1 Monocytes(Absolute) 0.9 x10E3/uL 0.1-0.9 Eos (Absolute) 0.3 x10E3/uL 0.0-0.4 Baso (Absolute) 0.0 x10E3/uL 0.0-0.2 Immature Granulocytes 0 % Immature Grans (Abs) 0.0 x10E3/uL 0.0-0. 1 ABO Grouping and Rho(D) Typing - 7 15:57 ABO Grouping O Rh Factor Positive hCG,Beta Subunit, Qnt, Serum - 01/10/17 15:57 hCG,Beta Subunit,Qnt,Serum 53349 mIU/mL TSH - 01/10/17 15:57 TSH 2.770 uIU/mL 0.450-4.500 Rubella Antibodies, IgG - 01/10/17 15:57 Rubella Antibodies, IgG <0.90 index Immu ne >0.99 Antibody Screen - 01/10/17 15:57 Antibody Screen Negative Negative RUBELLA ANTIBODIES, IgG - 01/10/17 15:57 Rubella Antibodies, IgG <0.90 index Immu ne >0.99 PDF Report - 01/10/17 15:57 PDF Report1 LCLS NRG Written Authorization - 01/10/17 15:57 Written Authorization NRG CULTURE, GENITAL - 01/10/17 15:57 Genital Culture, Routine Final report N RG Result 1 NRG CULTURE, URINE - 01/10/17 15:57 Urine Culture, Routine Final report NRG Result 1 No growth NRG Pap Lb, rfx HPV ASCU - 01/10/17 15:57 DIAGNOSIS: Comment Specimen adequacy: Comment Clinician provided ICD10: Comment Performed by: Comment QC reviewed by: Comment . . Note: Comment . Comment Thyroid Peroxidase (TPO) Ab - 01/15/17 1 7:49 Thyroid Peroxidase (TPO) Ab 9 IU/mL 0- 34 THYROID PEROXIDASE (TPO) ANTIBODY - 12/29 12/14 17:49 Thyroid Peroxidase (TPO) Ab 9 IU/mL 0- 34 TSH W/ FREE T4 - 02/08/17 15:36 TSH 1.320 uIU/mL 0.450-4.500 T4,Free(Direct) 1.09 ng/dL 0.82-1.77 TSH+Free T4 - 02/08/17 15:36 TSH 1.320 uIU/mL 0.450-4.500 T4,Free(Direct) 1.09 ng/dL 0.82-1.77 Complete urinalysis with reflex to cultu re - 02/13/17 11:25 Urine color determination YELLOW NRG Urine clarity determination CLEAR NR G Urine pH measurement by test strip 7 5-9 Specific gravity of urine by test strip 1.010 1.016-1.022 Urine protein assay by test strip, semi-quantitative NEGATIVE NEGATIVE Urine glucose detection by automated test strip NE GATIVE NEGATIVE Erythrocytes detection in urine sediment by light micr oscopy 1+ NEGATIVE Urine ketones detection by automated test strip 3+ NEGATIVE Urine nitrite detection by test strip NEGATIVE NEGATIVE Urine total bilirubin detection by test strip NEGA TIVE NEGATIVE Urine urobilinogen measurement by automated test strip (mass/volume) 1 mg/dL NORMAL Urine leukocyte esterase detection by dipstick NEG ATIVE NEGATIVE Automated urine sediment erythrocyte cou nt by microscopy (number/high power field) NONE NRG Automated urine sediment leukocyte count by microscopy (number/high power field) [HPF] NRG Bacteria detection in urine sediment by light microsco py TRACE NRG Squamous epithelial cells detection in u rine sediment by light microscopy 02-21 NRG Crystals detection in urine sediment by light microsco py NONE NRG Casts detection in urine sediment by light microscopy NONE NRG Mucus detection in urine sediment by light microscopy NEGATIVE NRG Complete urinalysis with reflex to culture NO NRG Complete blood count (CBC) with automate d white blood cell (WBC) differential - 02/13/17 11:45 Blood leukocytes automated count (number/volume) 11.5 10*3/uL 4.3-11.0 Blood erythrocytes automated count (number/volume) 3.91 10*6/uL 4.35-5.85 Venous blood hemoglobin measurement (mass/volume) 11.2 g/dL 11.5-16.0 Blood hematocrit (volume fraction) 33 % 35-52 Automated erythrocyte mean corpuscular volume 84 [ foz_us] 80-99 Automated erythrocyte mean corpuscular h emoglobin (mass per erythrocyte) 29 pg 25-34 Automated erythrocyte mean corpuscular h emoglobin concentration measurement (mass/volume) 34 g/dL 32-36 Automated erythrocyte distribution width ratio 13. 5 % 10.0- 14.5 Automated blood platelet count (count/volume) 220 10*3/uL [...] 10*3 1.0-4.0 Blood monocytes automated count (number/volume) 1. 1 10*3 0.0-1.0 Automated eosinophil count 0.0 10*3/uL 0 .0-0.3 Automated blood basophil count (count/volume) 0.0 10*3/uL 0.0-0.1 Comprehensive metabolic panel - 02/13/17 11:45 Serum or plasma sodium measurement (moles/volume) 134 mmol/L 135-145 Serum or plasma potassium measurement (moles/volume) 3.3 mmol/L 3.6-5.0 Serum or plasma chloride measurement (moles/volume) 104 mmol/L 98-107 Carbon dioxide 21 mmol/L 21-32 Serum or plasma anion gap determination (moles/volume) 9 mmol/L 5-14 Serum or plasma urea nitrogen measurement (mass/volume ) 5 mg/dL 7-18 Serum or plasma creatinine measurement (mass/volume) 0.55 mg/dL 0.60-1.30 Serum or plasma urea nitrogen/creatinine mass ratio 9 NRG Serum or plasma creatinine measurement w ith calculation of estimated glomerular filtration rate > NRG Serum or plasma glucose measurement (mass/volume) 100 mg/dL 70-105 Serum or plasma calcium measurement (mass/volume) 8.8 mg/dL 8.5-10.1 Serum or plasma total bilirubin measurement (mass/volu me) 0.3 mg/dL 0.1-1.0 Serum or plasma alkaline phosphatase glenn surement (enzymatic activity/volume) 51 U/L 40-136 Serum or plasma aspartate aminotransfera se measurement (enzymatic activity/volume) 12 U/L 5-34 Serum or plasma alanine aminotransferase measurement (enzymatic activity/volume) 10 U/L 0-55 Serum or plasma protein measurement (mass/volume) 6.7 g/dL 6.4-8.2 Serum or plasma albumin measurement (mass/volume) 3.8 g/dL 3.2-4.5 Lipase - 02/13/17 11:45 Lipase < U/L 8-78 Complete urinalysis with reflex to cultu re - 07/29/17 17:20 Urine color determination YELLOW NRG Urine clarity determination SLIGHTLY CLOUDY NRG Urine pH measurement by test strip 7 5-9 Specific gravity of urine by test strip 1.010 1.016-1.022 Urine protein assay by test strip, semi-quantitative NEGATIVE NEGATIVE Urine glucose detection by automated test strip NE GATIVE NEGATIVE Erythrocytes detection in urine sediment by light micr oscopy NEGATIVE NEGATIVE Urine ketones detection by automated test strip NE GATIVE NEGATIVE Urine nitrite detection by test strip NEGATIVE NEGATIVE Urine total bilirubin detection by test strip NEGA TIVE NEGATIVE Urine urobilinogen measurement by automated test strip (mass/volume) NORMAL NORMAL Urine leukocyte esterase detection by dipstick 1+ NEGATIVE Automated urine sediment erythrocyte cou nt by microscopy (number/high power field) NONE NRG Automated urine sediment leukocyte count by microscopy (number/high power field) [HPF] NRG Bacteria detection in urine sediment by light microsco py TRACE NRG Squamous epithelial cells detection in u rine sediment by light microscopy >50 NRG Crystals detection in urine sediment by light microsco py NONE NRG Casts detection in urine sediment by light microscopy NONE NRG Mucus detection in urine sediment by light microscopy NEGATIVE NRG Complete urinalysis with reflex to culture NO NRG Amorphous sediment detection in urine sediment by ligh t microscopy FEW KELLY URATES NRG Bacterial urine culture - 07/29/17 17:20 URINE CULTURE RESULTS <10,000/ML NRG Urine protein/creatinine mass ratio - 17:15 Urine protein measurement (mass/volume) 82 mg/dL 6-12 Urine creatinine measurement (mass/volume) 130 mg/ dL 30-125 Urine protein/creatinine mass ratio 0.63 NRG Blood CBC with ordered manual differenti al panel - 08/20/17 17:50 Blood leukocytes automated count (number/volume) 10.6 10*3/uL 4.3-11.0 Blood erythrocytes automated count (number/volume) 3.82 10*6/uL 4.35-5.85 Venous blood hemoglobin measurement (mass/volume) 10.4 g/dL 11.5-16.0 Blood hematocrit (volume fraction) 31 % 35-52 Automated erythrocyte mean corpuscular volume 81 [ foz_us] 80-99 Automated erythrocyte mean corpuscular h emoglobin (mass per erythrocyte) 27 pg 25-34 Automated erythrocyte mean corpuscular h emoglobin concentration measurement (mass/volume) 33 g/dL 32-36 Automated erythrocyte distribution width ratio 13. 9 % 10.0- 14.5 Automated blood platelet count (count/volume) 189 10*3/uL [...] 10*3 1.0-4.0 Blood monocytes automated count (number/volume) 0. 8 10*3 0.0-1.0 Automated eosinophil count 0.2 10*3/uL 0 .0-0.3 Automated blood basophil count (count/volume) 0.0 10*3/uL 0.0-0.1 Manual blood segmented neutrophils/100 leukocytes 61 % NRG Blood band neutrophils/100 leukocytes 0 % NRG Manual blood lymphocytes/100 leukocytes 22 % NRG Manual eosinophils/100 leukocytes in nose 3 % NRG Manual blood basophils/100 leukocytes 0 % NRG Blood erythrocyte morphology finding identification NORMAL [facility] Comprehensive metabolic panel - 08/20/17 17:50 Serum or plasma sodium measurement (moles/volume) 139 mmol/L 135-145 Serum or plasma potassium measurement (moles/volume) 4.0 mmol/L 3.6-5.0 Serum or plasma chloride measurement (moles/volume) 109 mmol/L 98-107 Carbon dioxide 22 mmol/L 21-32 Serum or plasma anion gap determination (moles/volume) 8 mmol/L 5-14 Serum or plasma urea nitrogen measurement (mass/volume ) 9 mg/dL 7-18 Serum or plasma creatinine measurement (mass/volume) 0.60 mg/dL 0.60-1.30 Serum or plasma urea nitrogen/creatinine mass ratio 15 NRG Serum or plasma creatinine measurement w ith calculation of estimated glomerular filtration rate > NRG Serum or plasma glucose measurement (mass/volume) 74 mg/dL 70-105 Serum or plasma calcium measurement (mass/volume) 8.7 mg/dL 8.5-10.1 Serum or plasma total bilirubin measurement (mass/volu me) 0.2 mg/dL 0.1-1.0 Serum or plasma alkaline phosphatase glenn surement (enzymatic activity/volume) 144 U/L 40-136 Serum or plasma aspartate aminotransfera se measurement (enzymatic activity/volume) 11 U/L 5-34 Serum or plasma alanine aminotransferase measurement (enzymatic activity/volume) 9 U/L 0-55 Serum or plasma protein measurement (mass/volume) 5.6 g/dL 6.4-8.2 Serum or plasma albumin measurement (mass/volume) 3.1 g/dL 3.2-4.5 Serum or plasma uric acid measurement (m ass/volume) - 08/20/17 17:50 Serum or plasma uric acid measurement (mass/volume) 6.2 mg/dL 2.6-7.2 Blood type T Indirect antibody screen pa ifeoma - 08/20/17 17:50 ABO+Rh group OP [facility] Transfusion band number [id number] [facility] Blood group antibody screen NEGATIVE NR G Complete blood count (CBC) with automate d white blood cell (WBC) differential - 08/22/17 05:20 Blood leukocytes automated count (number/volume) 15.1 10*3/uL 4.3-11.0 Blood erythrocytes automated count (number/volume) 3.62 10*6/uL 4.35-5.85 Venous blood hemoglobin measurement (mass/volume) 9.8 g/dL 11.5-16.0 Blood hematocrit (volume fraction) 30 % 35-52 Automated erythrocyte mean corpuscular volume 82 [ foz_us] 80-99 Automated erythrocyte mean corpuscular h emoglobin (mass per erythrocyte) 27 pg 25-34 Automated erythrocyte mean corpuscular h emoglobin concentration measurement (mass/volume) 33 g/dL 32-36 Automated erythrocyte distribution width ratio 14. 1 % 10.0- 14.5 Automated blood platelet count (count/volume) 165 10*3/uL 130-400 Automated blood platelet mean volume measurement 12.1 [foz_us] 7.4-10.4 Automated blood neutrophils/100 leukocytes 82 % 42-75 Automated blood lymphocytes/100 leukocytes 10 % 12-44 Blood monocytes/100 leukocytes 7 % 0-12 Automated blood eosinophils/100 leukocytes 1 % 0-10 Automated blood basophils/100 leukocytes 0 % 0-10 Blood neutrophils automated count (number/volume) 12.3 10*3 1.8-7.8 Blood lymphocytes automated count (number/volume) 1.5 10*3 1.0-4.0 Blood monocytes automated count (number/volume) 1. 1 10*3 0.0-1.0 Automated eosinophil count 0.1 10*3/uL 0 .0-0.3 Automated blood basophil count (count/volume) 0.0 10*3/uL 0.0-0.1 Complete blood count (CBC) with automate d white blood cell (WBC) differential - 08/23/17 09:56 Blood leukocytes automated count (number/volume) 11.1 10*3/uL 4.3-11.0 Blood erythrocytes automated count (number/volume) 3.11 10*6/uL 4.35-5.85 Venous blood hemoglobin measurement (mass/volume) 8.6 g/dL 11.5-16.0 Blood hematocrit (volume fraction) 26 % 35-52 Automated erythrocyte mean corpuscular volume 84 [ foz_us] 80-99 Automated erythrocyte mean corpuscular h emoglobin (mass per erythrocyte) 28 pg 25-34 Automated erythrocyte mean corpuscular h emoglobin concentration measurement (mass/volume) 33 g/dL 32-36 Automated erythrocyte distribution width ratio 14. 8 % 10.0- 14.5 Automated blood platelet count (count/volume) 162 10*3/uL 130-400 Automated blood platelet mean volume measurement 11.5 [foz_us] 7.4-10.4 Automated blood neutrophils/100 leukocytes 78 % 42-75 Automated blood lymphocytes/100 leukocytes 14 % 12-44 Blood monocytes/100 leukocytes 6 % 0-12 Automated blood eosinophils/100 leukocytes 2 % 0-10 Automated blood basophils/100 leukocytes 0 % 0-10 Blood neutrophils automated count (number/volume) 8.7 10*3 1.8-7.8 Blood lymphocytes automated count (number/volume) 1.6 10*3 1.0-4.0 Blood monocytes automated count (number/volume) 0. 6 10*3 0.0-1.0 Automated eosinophil count 0.2 10*3/uL 0 .0-0.3 Automated blood basophil count (count/volume) 0.0 10*3/uL 0.0-0.1 Comprehensive metabolic panel - 08/23/17 09:56 Serum or plasma sodium measurement (moles/volume) 139 mmol/L 135-145 Serum or plasma potassium measurement (moles/volume) 3.9 mmol/L 3.6-5.0 Serum or plasma chloride measurement (moles/volume) 110 mmol/L 98-107 Carbon dioxide 26 mmol/L 21-32 Serum or plasma anion gap determination (moles/volume) 3 mmol/L 5-14 Serum or plasma urea nitrogen measurement (mass/volume ) 10 mg/dL 7-18 Serum or plasma creatinine measurement (mass/volume) 0.56 mg/dL 0.60-1.30 Serum or plasma urea nitrogen/creatinine mass ratio 18 NRG Serum or plasma creatinine measurement w ith calculation of estimated glomerular filtration rate > NRG Serum or plasma glucose measurement (mass/volume) 75 mg/dL 70-105 Serum or plasma calcium measurement (mass/volume) 8.3 mg/dL 8.5-10.1 Serum or plasma total bilirubin measurement (mass/volu me) 0.2 mg/dL 0.1-1.0 Serum or plasma alkaline phosphatase glenn surement (enzymatic activity/volume) 90 U/L 40-136 Serum or plasma aspartate aminotransfera se measurement (enzymatic activity/volume) 13 U/L 5-34 Serum or plasma alanine aminotransferase measurement (enzymatic activity/volume) 8 U/L 0-55 Serum or plasma protein measurement (mass/volume) 4.8 g/dL 6.4-8.2 Serum or plasma albumin measurement (mass/volume) 2.4 g/dL 3.2-4.5 Complete urinalysis with reflex to cultu re - 07/22/19 16:50 Urine color determination YELLOW NRG Urine clarity determination CLEAR NR G Urine pH measurement by test strip 7.0 5-9 Specific gravity of urine by test strip 1.025 1.016-1.022 Urine protein assay by test strip, semi-quantitative NEGATIVE NEGATIVE Urine glucose detection by automated test strip NE GATIVE NEGATIVE Erythrocytes detection in urine sediment by light micr oscopy NEGATIVE NEGATIVE Urine ketones detection by automated test strip NE GATIVE NEGATIVE Urine nitrite detection by test strip NEGATIVE NEGATIVE Urine total bilirubin detection by test strip NEGA TIVE NEGATIVE Urine urobilinogen measurement by automated test strip (mass/volume) 4.0 mg/dL < = 1.0 Urine leukocyte esterase detection by dipstick 2+ NEGATIVE Automated urine sediment erythrocyte cou nt by microscopy (number/high power field) NONE NRG Automated urine sediment leukocyte count by microscopy (number/high power field) [HPF] NRG Bacteria detection in urine sediment by light microsco py TRACE NRG Squamous epithelial cells detection in u rine sediment by light microscopy 2-5 NRG Crystals detection in urine sediment by light microsco py PRESENT NRG Casts detection in urine sediment by light microscopy NONE NRG Mucus detection in urine sediment by light microscopy NEGATIVE NRG Complete urinalysis with reflex to culture NO NRG Amorphous sediment detection in urine sediment by ligh t microscopy MOD KELLY PHOSPHATE NRG Calcium oxalate crystals detection in ur ine sediment by light microscopy FEW NRG Bacterial urine culture - 07/22/19 16:50 Bacterial urine culture 3 OR MORE NRG COLONY COUNT 40,000 CFU/ML NRG SUSCEPTIBILITY GRAM POSITIVES, SUGGESTING PROBABLE NRG MRSA SCREEN COLLECTION CONTAMINATION WITH SKIN DIONNE RA NRG RAPID ID NO SUSCEPTIBILITY PERFORMED N RG Complete urinalysis with reflex to cultu re - 07/26/19 09:15 Urine color determination YELLOW NRG Urine clarity determination CLEAR NR G Urine pH measurement by test strip 6.5 5-9 Specific gravity of urine by test strip 1.010 1.016-1.022 Urine protein assay by test strip, semi-quantitative NEGATIVE NEGATIVE Urine glucose detection by automated test strip NE GATIVE NEGATIVE Erythrocytes detection in urine sediment by light micr oscopy TRACE-I NEGATIVE Urine ketones detection by automated test strip NE GATIVE NEGATIVE Urine nitrite detection by test strip NEGATIVE NEGATIVE Urine total bilirubin detection by test strip NEGA TIVE NEGATIVE Urine urobilinogen measurement by automated test strip (mass/volume) 1.0 mg/dL < = 1.0 Urine leukocyte esterase detection by dipstick NEG ATIVE NEGATIVE Automated urine sediment erythrocyte cou nt by microscopy (number/high power field) RARE NRG Automated urine sediment leukocyte count by microscopy (number/high power field) NONE NRG Bacteria detection in urine sediment by light microsco py NEGATIVE NRG Squamous epithelial cells detection in u rine sediment by light microscopy RARE NRG Crystals detection in urine sediment by light microsco py NONE NRG Casts detection in urine sediment by light microscopy NONE NRG Mucus detection in urine sediment by light microscopy NEGATIVE NRG Complete urinalysis with reflex to culture NO NRG Complete blood count (CBC) with automate d white blood cell (WBC) differential - 07/26/19 09:35 Blood leukocytes automated count (number/volume) 9.3 10*3/uL 4.3-11.0 Blood erythrocytes automated count (number/volume) 3.59 10*6/uL 4.35-5.85 Venous blood hemoglobin measurement (mass/volume) 9.9 g/dL 11.5-16.0 Blood hematocrit (volume fraction) 30 % 35-52 Automated erythrocyte mean corpuscular volume 83 [ foz_us] 80-99 Automated erythrocyte mean corpuscular h emoglobin (mass per erythrocyte) 28 pg 25-34 Automated erythrocyte mean corpuscular h emoglobin concentration measurement (mass/volume) 33 g/dL 32-36 Automated erythrocyte distribution width ratio 13. 4 % 10.0- 14.5 Automated blood platelet count (count/volume) 209 10*3/uL 130-400 Automated blood platelet mean volume measurement 11.1 [foz_us] 7.4-10.4 Automated blood neutrophils/100 leukocytes 76 % 42-75 Automated blood lymphocytes/100 leukocytes 16 % 12-44 Blood monocytes/100 leukocytes 6 % 0-12 Automated blood eosinophils/100 leukocytes 2 % 0-10 Automated blood basophils/100 leukocytes 0 % 0-10 Blood neutrophils automated count (number/volume) 7.1 10*3 1.8-7.8 Blood lymphocytes automated count (number/volume) 1.5 10*3 1.0-4.0 Blood monocytes automated count (number/volume) 0. 6 10*3 0.0-1.0 Automated eosinophil count 0.2 10*3/uL 0 .0-0.3 Automated blood basophil count (count/volume) 0.0 10*3/uL 0.0-0.1 Coronavirus SARS-CoV-2 SO 2018 - 0 08:00 Coronavirus Ab [Units/volume] in Serum Negative Negative Encounters ACCT No. Visit Date/Time Discharge Status Pt. Type Provider Facility Loc./Unit Complaint [id number] 01/13/2017 16:06:00 Document Registration [id number] 10/16/2019 05:35:00 14:48:00 DIS Outpatient SHWETHA GANDHI ENOC Patricia [facility] PREOP PREVIOUS [id number] 07/26/2019 07:53:00 020 10:08:00 DIS Outpatient LEANNA GIANG, BRIGIDA Vigil [facility] WSo BACK PAIN [id number] 07/22/2019 16:40:00 18:25:00 DIS Outpatient EDSON ESCOBEDO DO [facility] WSo POSS LEAKING AMNIOTIC F LUID [id number] 06/09/2019 09:32:00 020 23:59:59 CLS Outpatient ROMAN BANKS CAR WIPER [facility] RAD ANATOMY SCAN [id number] 08/20/2017 20:35:00 018 16:30:00 DIS Inpatient ENOC TADEO DO Patricia [facility] LDRP LABOR AND DELIVERY [id number] 07/29/2017 17:09:00 018 18:08:00 DIS Outpatient SHWETHA DO ENOC Patricia [facility] WSo PRESSURE,SWELLING [id number] 04/18/2017 09:55:00 017 23:59:59 CLS Outpatient SHWETHA GANDHI ENOC Gomez [facility] RAD , PELVIC KIDNE Y [id number] 02/13/2017 11:11:00 017 12:49:00 DIS Emergency KHOA RUELAS CAR WIPER [facility] ER CHEST DISCOMFORT,N/V, 1 1WKS PG [id number] 01/10/2017 16:24:00 017 23:59:59 CLS Outpatient MATT GIANG, SHAILESH Mcleod [facility] RAD Z34.90,R10.2 [id number] 01/06/2017 21:42:00 017 00:39:00 DIS Emergency GENA GIANG, KAYLA Bates [facility] ER SORE THROAT/ 6 WEEKS [id number] 04/26/2014 21:55:00 014 22:25:00 DIS Emergency KHOA RUELAS APRN [facility] ER EAR PAIN [id number] 10/21/2019 12:00:00 P EN Preadmit FENECH DO, ENOC S PREVIOUS [id number] 11/27/2011 00:00:00 Document Registration [id number] 09/04/2011 07:59:00 Document Registration [id number] 01/12/2017 08:07:00 Document Registration [id number] 01/12/2017 03:06:00 Document Registration [id number] 01/11/2017 14:08:00 Document Registration [id number] 01/16/2017 08:06:00 Document Registration [id number] 06/22/2019 09:45:00 06/22/2019 23:59:[address] [facility] Outpatient [facility] [id number] 02/08/2017 14:40:00 Document Registration [id number] 01/15/2017 17:00:00 Document Registration [id number] 01/10/2017 15:20:00 Document Registration [id number] 02/09/2017 08:06:00 Document Registration [id number] 01/13/2017 17:07:00 Document Registration
[2019-10-21 11:02] LABS: BASOPHILS % (AUTO) 0 % (0-10); EOSINOPHILS # (AUTO) 0.1 10^3/uL (0.0-0.3); EOSINOPHILS % (AUTO) 1 % (0-10); HEMATOCRIT 29 % (35-52); HEMOGLOBIN 9.5 G/DL (11.5-16.0); LYMPHOCYTES # (AUTO) 1.8 X 10^3 (1.0-4.0); LYMPHOCYTES % (AUTO) 15 % (12-44); MEAN CORPUSCULAR HEMOGLOBIN 25 PG (25-34); MEAN CORPUSCULAR HGB CONC 33 G/DL (32-36); MEAN CORPUSCULAR VOLUME 78 FL (80-99); MEAN PLATELET VOLUME 10.3 FL (7.4-10.4); MONOCYTES # (AUTO) 0.7 X 10^3 (0.0-1.0); MONOCYTES % (AUTO) 6 % (0-12); NEUTROPHILS # (AUTO) 9.9 X 10^3 (1.8-7.8); NEUTROPHILS % (AUTO) 79 % (42-75); PLATELET COUNT 244 10^3/uL (130-400); RED CELL DISTRIBUTION WIDTH 14.5 % (10.0-14.5); WHITE BLOOD COUNT 12.6 10^3/uL (4.3-11.0)
[2019-10-21] MEDS ORDERED: ONDANSETRON 4 MG/2 ML (SDV) Z0FRAN ONE (11:51)
[2019-10-21] MEDS ORDERED: BUPIVACAINE 0.25% 30 ML (SENSORCAINE) VIAL ONE (11:51)
[2019-10-21] MEDS ORDERED: KETOROLAC 30 MG/ML VIAL ONE (11:51)
[2019-10-21] MEDS ORDERED: OXYTOCIN PRE-MIX DRIP 1,000 ML IV ONE (11:51)
[2019-10-21] MEDS ORDERED: fentaNYL INJECTION 100 MCG/2 ML AMP ONE (11:52)
--- NOTE | 2019-10-21 11:57 | History & Physical-OB ---
OB - Chief Complaint & HPI Date/Time Date of Admission: Date of Admission: Oct 21, 2019 at 10:04 am Date seen by a Provider: Oct 21, 2019 Time Seen by a Provider: 12:00 Chief Complaint/History OB-Reason for Admission/Chief: Section Hx : 2 Hx Para: 1 Expected Date of Delivery: Oct 28, 2019 Gestational Age in Weeks: 39 Gestational Age in Days: 0 Indication for : desires repeat Admission Nurse Assessment Rev: Yes Allergies and Home Medications Allergies Coded Allergies: No Known Drug Allergies (Unverified , 10/14/19) Home Medications Ferrous Sulfate 325 Mg Tablet, 325 MG PO DAILY, (Reported) Patient Home Medication List Home Medication List Reviewed: Yes OB - History Hx of Present Care: Yes Ultrasounds: Normal mid trimester US Obstetrical Complications: None Medical Complications: None Delivery History Hx Blood Disorders: No Adverse Rxn to Tranfusion: No (N/A) Patient Past Medical History recurrent UTI, Pelvic kidney, hx of migraines Social History/Family History HIV/AIDS: No Sexually Transmitted Disease: No Alcohol Use: Denies Use Recreational Drug Use: No 2nd Hand Smoke Exposure: No Immunizations Hepatitis A: Yes Hepatitis B: Yes OB - Admission Exam Physical Exam HEENT: NCAT Heart: Rhythm Normal Lungs: Clear Abdomen: Gravid Extremities: Normal Reflexes: Normal Heart Rate: 130's Accelerations: Accelerations Present Decelerations: No Decelerations Short Term Variability: Present Jail Variability: Average (6-25) Contractions on Admission: >10 Minutes Apart Intensity: Mild Labs Laboratory Tests Test 10/21/19 10:50 Range/Units White Blood Count 12.6 H 4.3-11.0 10^3/uL Red Blood Count 3.76 L 4.35-5.85 10^6/uL Hemoglobin 9.5 L 11.5-16.0 G/DL Hematocrit 29 L 35-52 % Mean Corpuscular Volume 78 L 80-99 FL Mean Corpuscular Hemoglobin 25 25-34 PG Mean Corpuscular Hemoglobin Concent 33 32-36 G/DL Red Cell Distribution Width 14.5 10.0-14.5 % Platelet Count 244 130-400 10^3/uL Mean Platelet Volume 10.3 7.4-10.4 FL Neutrophils (%) (Auto) 79 H 42-75 % Lymphocytes (%) (Auto) 15 12-44 % Monocytes (%) (Auto) 6 0-12 % Eosinophils (%) (Auto) 1 0-10 % Basophils (%) (Auto) 0 0-10 % Neutrophils # (Auto) 9.9 H 1.8-7.8 X 10^3 Lymphocytes # (Auto) 1.8 1.0-4.0 X 10^3 Monocytes # (Auto) 0.7 0.0-1.0 X 10^3 Eosinophils # (Auto) 0.1 0.0-0.3 10^3/uL Basophils # (Auto) 0.0 0.0-0.1 10^3/uL OB - Assessment/Plan/Diagnosis Assessment Assessment: section Admission Dx 24 yo @ 39 weeks Previous Left sided pelvic kidney Admission Status: Inpatient Order (span 2 midnights) Reason for Inpatient Admission: Repeat Plan Plan: Section ENOC TADEO DO Oct 21, 2019 11:57 am
[2019-10-21] MEDS ORDERED: ONDANSETRON 4 MG/2 ML (SDV) Z0FRAN IVP PRN (12:00)
[2019-10-21] MEDS ORDERED: MEASLES,MUMPS,RUBELLA 1 EA INJ SC SCH (12:00)
[2019-10-21] MEDS ORDERED: TETANUS,DIPTH,PERTUSS P/F (BOOSTRIX) 0.5 ML VIAL IM SCH (12:00)
[2019-10-21] MEDS ORDERED: KETAMINE/NaCl 50 MG/5 ML SYRINGE (ED ONLY) ONE (12:24)
[2019-10-21] MEDS ORDERED: BUPIVACAINE 0.5% 30 ML (SENSORCAINE) VIAL ONE (12:57)
[2019-10-21] MEDS: KETOROLAC 30 MG/ML VIAL IV SCH ×2 (13:00→18:29)
[2019-10-21] MEDS: OXYTOCIN PRE-MIX DRIP 500 ML IV SCH (13:15)
[2019-10-21] MEDS ORDERED: CATHETER FLUSH 10 ML SYR IV SCH (14:00)
[2019-10-21] MEDS: HYDROcodone/APAP 5 MG/325 MG (LORTAB) TAB PO PRN ×2 (14:50→22:40)
--- NOTE | 2019-10-21 14:50 | NUR ---
LORTAB 5/325 2 TABS FOR C/O RIGHT ABDOMINAL PAIN RATED 8/10.
--- NOTE | 2019-10-21 17:20 | OPERATIVE REPORT ---
DATE OF SERVICE: PREOPERATIVE DIAGNOSES: 1. A 24-year-old G2, P1 at 39 weeks gestation. 2. Previous section. POSTOPERATIVE DIAGNOSES: 1. A 24-year-old G2, P1 at 39 weeks gestation. 2. Previous section. PROCEDURE: Repeat low transverse section. SURGEON: Raghu Tadeo DO ANESTHESIA: Spinal. ESTIMATED BLOOD LOSS: 300 mL. URINE OUTPUT: 30 mL clear at the end of the procedure. FLUIDS: 2100 mL lactated Ringer's solution. FINDINGS: A live male weighing 7 pounds 1 ounce, Apgars of 8 and 9. Grossly normal appearing uterus, bilateral fallopian tubes and ovaries as well as a palpable left pelvic kidney. SPECIMEN SENT: None. INDICATIONS FOR PROCEDURE: This 24-year-old female is a patient who had sought care in my office. Her care was uncomplicated with the exception of planning for repeat . Risks of the procedure had been reviewed previously throughout her care; however, in the preoperative area, we reviewed once again. Consent was obtained, the patient was taken to the operating room. After all of her questions were answered in the operating room, anesthesia was found to be adequate. She was placed in the supine position with leftward tilt, prepped and draped in normal sterile fashion. A timeout was performed and anesthesia was tested. A Pfannenstiel skin incision was made through the previously existing scar using knife and carried down layer of fascia using Bovie cautery. The fascial excision was extended laterally using Bovie cautery. Superior aspect of fascial incision was then grasped with Georgette clamps, tented up and dissected off the underlying rectus muscles. The inferior aspect of fascial incision was then grasped with Georgette clamps, tented up and dissected off the underlying rectus muscles. Rectus muscle was then dissected down the midline using Chavez scissors, which exposed the peritoneum, which I extended using blunt traction. Peritoneum was identified and entered bluntly and extended using blunt traction. Casa ring retractor was placed in the peritoneal incision, which offered excellent lateral sidewall retraction. I identified the lower uterine segment, which was found to be thinned out and make a low transverse incision into the vesicouterine peritoneum and bluntly dissected off the lower uterine segment. I then proceeded with myotomy until membranes were visualized, at which point I extended the uterine incision laterally and superiorly using bandage scissors. Amniotomy was performed in the process of doing this and clear fluid was noted. was found in vertex presentation. With gentle fundal pressure, the infant's head was elevated up the incision where the head was delivered through the incision. The nares and oropharynx were bulb suctioned. Nuchal cord was reduced x2. Anterior and posterior shoulders were delivered and then the was then brought to the operative field. The cord was doubly clamped and cut and infant was handed off to waiting nurses in attendance. Cord blood was collected. Three-vessel cord with intact placenta was delivered spontaneously thereafter. IV Pitocin was initiated to facilitate uterine contraction. Uterine fundus confirmed by manual massage. Uterus was then exteriorized and cleared of all endometrial clots and debris. I then proceeded with closing the uterine incision using 0 Vicryl suture in running locked fashion. Second layer of imbricating 0 Monocryl was placed. Excellent hemostasis was noted after doing this. I then placed the uterus back in the pelvis and copiously irrigated the pelvis using normal saline. Once again, no active bleeding noted from any of my dissection planes. I placed Interceed antiadhesive over my low transverse incision and removed the Casa ring retractor. I then reapproximated the peritoneum using 3-0 Vicryl suture in running fashion. The rectus muscles were reapproximated using 3-0 Vicryl suture in interrupted fashion. The fascia was reapproximated using 0 Vicryl suture in running fashion. Subcutaneous tissue was reapproximated using 3-0 plain interrupted subcutaneous stitch and skin reapproximated using 4-0 Monocryl running subcuticular. Dermabond was applied to incision and sterile dressing with adhesive white tape. The patient tolerated the procedure well and was taken to recovery area in stable condition. Lap and sponge counts were correct at the end of the procedure. Instrument counts correct as well. Two grams of Ancef given preoperatively for infection prophylaxis. Job ID: [id number] DocumentID: [id number] Dictated Date: 10/21/2019 12:55:24 Dry Mill Operator Date: 10/21/2019 17:19:58 Dictated By: RAGHU TADEO DO
[2019-10-21] MEDS ORDERED: HYDROmorphone 2 MG/ML VIAL (DILAUDID) ONE (18:58)
[2019-10-21] MEDS ORDERED: HYDROmorphone 2 MG/ML VIAL (DILAUDID) IVP ONE (19:00)
[2019-10-21] MEDS: DOCUSATE SODIUM 100 MG (COLACE) CAP PO SCH (22:40)
[2019-10-22] MEDS: KETOROLAC 30 MG/ML VIAL IV SCH ×2 (00:33→06:45)
[2019-10-22] MEDS: HYDROcodone/APAP 5 MG/325 MG (LORTAB) TAB PO PRN ×4 (03:40→21:15)
[2019-10-22 05:56] LABS: BASOPHILS % (AUTO) 0 % (0-10); EOSINOPHILS # (AUTO) 0.2 10^3/uL (0.0-0.3); EOSINOPHILS % (AUTO) 2 % (0-10); HEMATOCRIT 28 % (35-52); HEMOGLOBIN 8.9 G/DL (11.5-16.0); LYMPHOCYTES % (AUTO) 16 % (12-44); MEAN CORPUSCULAR HEMOGLOBIN 25 PG (25-34); MEAN CORPUSCULAR HGB CONC 31 G/DL (32-36); MEAN CORPUSCULAR VOLUME 79 FL (80-99); MONOCYTES % (AUTO) 7 % (0-12); NEUTROPHILS # (AUTO) 9.8 X 10^3 (1.8-7.8); NEUTROPHILS % (AUTO) 75 % (42-75); PLATELET COUNT 231 10^3/uL (130-400); RED CELL DISTRIBUTION WIDTH 14.4 % (10.0-14.5); WHITE BLOOD COUNT 13.1 10^3/uL (4.3-11.0)
--- NOTE | 2019-10-22 07:19 | Postpartum Progress Note ---
KERRY LUJAN,MED STUDENT 10/22/19 0719: Note Note Day # 1 Subjective: Patient is without complaints. Ambulating, voiding. Tolerating a regular diet without nausea or vomiting. Normal lochia. Pain is well controlled. Objective: Physical Exam: General - Alert and oriented, no apparent distress Abdomen - Soft, appropriately tender to palpation, non-distended, fundus firm at umbilicus Extremities - no edema Incision: clean, dry and intact Assessment: Post- day # 1, status post RLTCS. Acute blood loss anemia Recovering well, hemodynamically stable Plan: Routine care. Encourage ambulation. Ferrous sulfate supplementation. Plan for discharge tomorrow Vitals - Labs Vital Signs - I&O Vital Signs Date Time Temp Pulse Resp B/P (MAP) Pulse Ox O2 Delivery O2 Flow Rate FiO2 10/21/19 20:20 36.7 66 18 117/72 (87) 98 Room Air 10/21/19 17:00 36.3 86 20 111/66 (81) 99 Room Air 10/21/19 14:30 36.8 100 18 106/62 (77) 99 Room Air 10/21/19 14:13 Room Air 10/21/19 14:13 36.4 20 110/77 (88) 99 Room Air 10/21/19 13:58 36.6 20 91/61 (71) 100 Room Air 10/21/19 13:58 Room Air 10/21/19 13:43 Room Air 10/21/19 13:43 36.1 16 101/76 (84) 99 Room Air 10/21/19 13:28 36.7 22 100/69 (79) 99 Room Air 10/21/19 13:28 Room Air 10/21/19 13:13 36.2 20 108/68 (81) 99 Room Air 10/21/19 13:13 Room Air 10/21/19 10:30 36.4 82 18 98 Room Air I & O 10/22/19 07:00 Intake Total 1350 ml Output Total 330 ml Balance 1020 ml Labs Laboratory Tests 10/21/19 10:50: White Blood Count 12.6H, Red Blood Count 3.76L, Hemoglobin 9.5L, Hematocrit 29L, Mean Corpuscular Volume 78L, Mean Corpuscular Hemoglobin 25, Mean Corpuscular Hemoglobin Concent 33, Red Cell Distribution Width 14.5, Platelet Count 244, Mean Platelet Volume 10.3, Neutrophils (%) (Auto) 79H, Lymphocytes (%) (Auto) 15, Monocytes (%) (Auto) 6, Eosinophils (%) (Auto) 1, Basophils (%) (Auto) 0, Neutrophils # (Auto) 9.9H, Lymphocytes # (Auto) 1.8, Monocytes # (Auto) 0.7, Eosinophils # (Auto) 0.1, Basophils # (Auto) 0.0 10/22/19 05:22: White Blood Count 13.1H, Red Blood Count 3.59L, Hemoglobin 8.9L, Hematocrit 28L, Mean Corpuscular Volume 79L, Mean Corpuscular Hemoglobin 25, Mean Corpuscular Hemoglobin Concent 31L, Red Cell Distribution Width 14.4, Platelet Count 231, Mean Platelet Volume 11.0H, Neutrophils (%) (Auto) 75, Lymphocytes (%) (Auto) 16, Monocytes (%) (Auto) 7, Eosinophils (%) (Auto) 2, Basophils (%) (Auto) 0, Neutrophils # (Auto) 9.8H, Lymphocytes # (Auto) 2.0, Monocytes # (Auto) 1.0, Eosinophils # (Auto) 0.2, Basophils # (Auto) 0.0 ENOC TADEO DO 10/23/19 0231: Note Note Verification and Attestation of Medical Student E/M Service A medical student performed and documented this service in my presence. I reviewed and verified all information documented by the medical student and made modifications to such information, when appropriate. I personally performed the physical exam and medical decision making. Enoc Tadeo, Oct 23, 2019,02:31 KERRY LUJAN,MED STUDENT Oct 22, 2019 07:19 ENOC TADEO DO Oct 23, 2019 02:31
--- NOTE | 2019-10-22 08:10 | NUR ---
up to shower.
[2019-10-22 09:04] VITALS: BP 109/66
--- NOTE | 2019-10-22 09:04 | NUR ---
Initial shift assessment completed, see interventions for further. Addendum: 10/22/19 at 1925 by LINDA BENITO RN c/o Rt.shoulder pain. encouraged pt to ambulate in hallways.
[2019-10-22] MEDS: DOCUSATE SODIUM 100 MG (COLACE) CAP PO SCH ×2 (09:11→21:14)
--- NOTE | 2019-10-22 10:43 | Anesthesia-Regional Post-Op ---
Regional Patient Condition Mental Status: Alert, Oriented x3 Circulation: Same as Pre-Op Headache: Absent Sensation: Full Recovery Motor Block: Absent Post Op Complications Complications None Follow Up Care/Instructions Patient Instructions None needed. Anesthesia/Patient Condition Patient is doing well, no complaints, stable vital signs, no apparent adverse anesthesia problems. No complications reported per nursing. D/C home per [facility] Criteria: No ELIZABETH RODRIGUEZ CRNA Oct 22, 2019 10:43
[2019-10-22] MEDS ORDERED: SIMETHICONE 80 MG (MYLICON) CHEW ONE (11:31)
[2019-10-22] MEDS: IBUPROFEN 600 MG (MOTRIN) TAB PO SCH ×3 (11:36→23:57)
[2019-10-22] MEDS: SIMETHICONE 80 MG (MYLICON) CHEW PO SCH ×3 (11:36→21:15)
[2019-10-22 15:25] VITALS: BP 106/55
[2019-10-22] MEDS: OXYTOCIN PRE-MIX DRIP 500 ML IV SCH (16:06)
--- NOTE | 2019-10-22 17:43 | NUR ---
stork meal served
--- NOTE | 2019-10-22 19:18 | NUR ---
report given to next shift.
[2019-10-22 21:15] VITALS: BP 107/58
[2019-10-23 02:25] VITALS: BP 110/61
[2019-10-23] MEDS: HYDROcodone/APAP 5 MG/325 MG (LORTAB) TAB PO PRN ×2 (02:25→08:47)
[2019-10-23] MEDS: IBUPROFEN 600 MG (MOTRIN) TAB PO SCH (06:48)
--- NOTE | 2019-10-23 07:19 | Postpartum Progress Note ---
KERRY LUJAN,MED STUDENT 10/23/19 0719: Note Note Day # 2 Subjective: Patient is without complaints. Ambulating, voiding. Tolerating a regular diet without nausea or vomiting. Normal lochia. Pain is well controlled with oral pain medications. Objective: Physical Exam: General - Alert and oriented, no apparent distress Abdomen - Soft, appropriately tender to palpation, non-distended, fundus firm at umbilicus Extremities - no edema Incision: clean, dry and intact Assessment: Post- day # 2, status post RLTCS. Acute blood loss anemia Recovering well, hemodynamically stable Plan: Routine care. Encourage ambulation. Ferrous sulfate supplementation. Plan for discharge today Vitals - Labs Vital Signs - I&O Vital Signs Date Time Temp Pulse Resp B/P (MAP) Pulse Ox O2 Delivery O2 Flow Rate FiO2 10/23/19 02:25 36.3 67 18 110/61 (77) 98 Room Air 10/22/19 21:15 36.5 73 18 107/58 (74) 98 Room Air 10/22/19 15:25 36.6 73 18 106/55 (72) 99 Room Air 10/22/19 09:04 36.5 65 18 109/66 (80) 98 Room Air ENOC TADEO DO 10/23/19 0821: Note Note Verification and Attestation of Medical Student E/M Service A medical student performed and documented this service in my presence. I reviewed and verified all information documented by the medical student and made modifications to such information, when appropriate. I personally performed the physical exam and medical decision making. Enoc Tadeo, Oct 23, 2019,08:21 KERRY LUJAN,MED STUDENT Oct 23, 2019 07:19 ENOC TADEO DO Oct 23, 2019 08:21
[2019-10-23] MEDS ORDERED: SIME80TA16 PO (08:10)
[2019-10-23] MEDS ORDERED: IBUP-844 PO (08:10)
[2019-10-23] MEDS ORDERED: DCS100C PO (08:10)
[2019-10-23] MEDS ORDERED: HYDR-83 PO (08:10)
--- NOTE | 2019-10-23 08:11 | Discharge Inst-Women's Service ---
Discharge Inst-Women's Serv Depart Medication/Instructions New, Converted or Re-Newed RX: RX on Chart Final Diagnosis POD 2 RLTCS Problems Reviewed?: Yes Consults/Follow Up Additional Follow Up: Yes Orders/Referrals Dr. Benltey in 7-10 days and in 6 weeks Activity Activity: Activity as Tolerated Driving Instructions: No Driving for 1 Week NO SMOKING: NO SMOKING Nothing Inside Vagina: No Douching, No [place], No Tampons Diet Discharge Diet: No Restrictions Symptoms to Report to : Bleeding Excessive, Pain Increased, Fever Over 101 Degrees F, Vaginal Bleeding Increase, Questions/Concerns For Any Problems or Questions: Contact Your Physician Skin/Wound Care Infection Signs and Symptoms: Increased Redness, Foul Odor of Wound, Increased Drainage, Skin Itchy or Has a Rash, Increased Swelling, Temperature Above 101 F Operative Area Clean and Dry: Keep Incision Clean/Dry Stitches/Ellen/Dermabond: Dermabond, Care of Stitches Bathing Instructions: ENOC Raza DO Oct 23, 2019 08:11
[2019-10-23 08:15] VITALS: BP 123/62
--- NOTE | 2019-10-23 08:15 | NUR ---
here to see pt.
[2019-10-23] MEDS: DOCUSATE SODIUM 100 MG (COLACE) CAP PO SCH (08:46)
--- NOTE | 2019-10-23 10:17 | NUR ---
initial shift assessment completed, see interventions for further.
--- NOTE | 2019-10-23 10:25 | NUR ---
dismissal instructions given, verbalizes understanding. reviewed follow up appointments and Rx's. signature page signed, placed on chart.
--- NOTE | 2019-10-23 12:10 | NUR ---
pt dismissed to private vehicle via w/c with HESHAM Richardson, infant and s/o @ side. secured in rear facing car seat. pt stable with no sx's of distress noted.
== END 2019-10-23 12:10 | disposition home or self-care (01) | DRG 787 ==
LOC: LDRP 10:04
PROVIDERS: ADMIT Obstetrics & Gynecology; ATTEND Obstetrics & Gynecology
PROC: 10D00Z1 Extraction of Products of Conception, Low, Open Approach (ICD-10-PCS; principal; 2019-10-21 12:04)
DX: O34.211 Maternal care for low transverse scar from previous cesarean delivery (principal); D62 Acute posthemorrhagic anemia; Z37.0 Single live birth; O34.83 Maternal care for other abnormalities of pelvic organs, third trimester; Z3A.39 39 weeks gestation of pregnancy; O99.03 Anemia complicating the puerperium
CPT/HCPCS: 36415; 85025; 86850; 86900; 86901; 94664

== ENCOUNTER 2022-01-31 05:34 | Outpatient (CLI) | payer BC ==
[~2022-01-31] VITALS: Ht 160 cm; Wt 70.3 kg
[~2022-01-31 05:34] MED LIST changes: +DOCU-239 PO; +LABE200T10 PO; -LABE200T7 PO; +SIME80TA16 PO
[2022-01-31] MEDS ORDERED: ACET-273 PO (09:15)
== END 2022-01-31 09:20 | disposition home or self-care (01) ==
LOC: PREOP 05:34
PROVIDERS: ATTEND Surgery
DX: Z01.818 Encounter for other preprocedural examination (principal)

== ENCOUNTER 2022-02-01 09:52 | Day surgery (SDC) | payer BC ==
[~2022-02-01] VITALS: Ht 160 cm; Wt 70.3 kg
[~2022-02-01 09:52] MED LIST changes: +ACET-273 PO
[2022-02-01 10:20] VITALS: BP 115/71
[2022-02-01] MEDS ORDERED: NS (IVPB) 50 ML ONE (10:38)
[2022-02-01] MEDS ORDERED: ceFAZolin INJECTION 2,000 MG ONE (10:38)
[2022-02-01] MEDS ORDERED: LIDOCAINE/EPI 2% 1:200,00 (XYLOCAINE) 10 ML VIAL ONE ×2 (10:55→11:10)
[2022-02-01] MEDS ORDERED: LACTATED RINGERS 1,000 ML IV PRN (11:00)
[2022-02-01] MEDS ORDERED: proPOfol 200 MG/20 ML (DIPRIVAN) VIAL IV ONE (11:13)
[2022-02-01] MEDS ORDERED: ROCURONIUM 10 MG/ML 5 ML SYRINGE IV ONE (11:13)
[2022-02-01] MEDS ORDERED: ONDANSETRON 4 MG/2 ML (SDV) Z0FRAN ONE (11:13)
[2022-02-01] MEDS ORDERED: fentaNYL INJ 100 MCG/2 ML AMP ONE (11:13)
[2022-02-01] MEDS ORDERED: SEVOFLURANE (ULTANE) 15 ML INHAL SOLN ONE (11:13)
[2022-02-01] MEDS ORDERED: MIDAZOLAM 2 MG/2 ML (VERSED) VIAL ONE (11:14)
--- NOTE | 2022-02-01 11:28 | Progress Note-Pre Operative ---
Pre-Operative Progress Note Date H&P Reviewed: Feb 01, 2022 Time H&P Reviewed: 10:29 History & Physical: H&P Reviewed, Patient Examed, No changes noted Pre-Operative Diagnosis: Gallbladder polyp, RUQ pain MARCOS WHITING DO Feb 01, 2022 11:28
== END 2022-02-01 11:45 ==
LOC: SDC 09:52
PROVIDERS: ATTEND Surgery
DX: K82.4 Cholesterolosis of gallbladder (principal); Z53.8 Procedure and treatment not carried out for other reasons
CPT/HCPCS: 84703; 87081

== ENCOUNTER 2022-03-10 18:29 | Day surgery (SDC) | payer BC ==
[~2022-03-10] VITALS: Ht 62 cm; Wt 73.2 kg
[~2022-03-10 18:29] MED LIST changes: -CATHETER FLUSH 10 ML SYR IVP PRN; -ONDA4TAB11 SL
[2022-03-10] MEDS ORDERED: morphine INJ 4 MG/ML 1 ML (VIAL/SYRINGE) IVP PRN (18:45)
[2022-03-10] MEDS ORDERED: ONDANSETRON 4 MG/2 ML (SDV) Z0FRAN IVP PRN (18:45)
[2022-03-10] MEDS: LACTATED RINGERS 1,000 ML IV SCH (18:55)
[2022-03-10 19:00] VITALS: BP 112/73
[2022-03-10] MEDS ORDERED: ACETAMINOPHEN 500 MG TAB (TYLENOL) PO ONE (21:00)
[2022-03-11] VITALS (12 sets, daily range): BP systolic 108–133; BP diastolic 58–76
[2022-03-11] MEDS: LACTATED RINGERS 1,000 ML IV SCH ×3 (01:25→14:50)
[2022-03-11 04:50] LABS: BASOPHILS % (AUTO) 0 % (0-10); EOSINOPHILS # (AUTO) 0.3 10^3/uL (0.0-0.3); EOSINOPHILS % (AUTO) 4 % (0-10); HEMATOCRIT 37 % (35-52); HEMOGLOBIN 11.8 g/dL (11.5-16.0); LYMPHOCYTES # (AUTO) 1.8 10^3/uL (1.0-4.0); LYMPHOCYTES % (AUTO) 28 % (12-44); MEAN CORPUSCULAR HEMOGLOBIN 27 pg (25-34); MEAN CORPUSCULAR HGB CONC 32 g/dL (32-36); MEAN CORPUSCULAR VOLUME 85 fL (80-99); MEAN PLATELET VOLUME 11.3 fL (9.0-12.2); MONOCYTES # (AUTO) 0.6 10^3/uL (0.0-1.0); MONOCYTES % (AUTO) 10 % (0-12); NEUTROPHILS # (AUTO) 3.7 10^3/uL (1.8-7.8); NEUTROPHILS % (AUTO) 57 % (42-75); PLATELET COUNT 240 10^3/uL (130-400); WHITE BLOOD COUNT 6.5 10^3/uL (4.3-11.0)
[2022-03-11 05:10] LABS: ALBUMIN 3.9 GM/DL (3.2-4.5); BILIRUBIN,TOTAL 0.4 MG/DL (0.1-1.0); CREATININE SERUM 0.66 MG/DL (0.60-1.30); TOTAL PROTEIN 6.7 GM/DL (6.4-8.2)
[2022-03-11] MEDS ORDERED: PANTOPRAZOLE 40 MG (PROTONIX) VIAL IV SCH (09:00)
[2022-03-11] MEDS ORDERED: LACTATED RINGERS 1,000 ML IV PRN ×2 (10:15→12:00)
[2022-03-11] MEDS ORDERED: fentaNYL INJ 100 MCG/2 ML AMP IVP ONE (10:15)
[2022-03-11] MEDS ORDERED: MEPERIDINE (DEMEROL) INJ 50 MG/ML IVP ONE (10:15)
[2022-03-11] MEDS ORDERED: ONDANSETRON 4 MG/2 ML (SDV) Z0FRAN IVP PRN (10:15)
[2022-03-11] MEDS ORDERED: morphine INJ 10 MG/ML 1ML (SYR OR VIAL) IVP ONE (10:15)
[2022-03-11] MEDS ORDERED: ONDANSETRON 4 MG/2 ML (SDV) Z0FRAN ONE ×2 (10:21→11:00)
[2022-03-11] MEDS ORDERED: MIDAZOLAM 2 MG/2 ML (VERSED) VIAL ONE (10:21)
[2022-03-11] MEDS ORDERED: proPOfol 200 MG/20 ML (DIPRIVAN) VIAL IV ONE (10:21)
[2022-03-11] MEDS ORDERED: LIDOCAINE PF 2% 5 ML (XYLOCAINE) VIAL ONE (10:21)
[2022-03-11] MEDS ORDERED: ROCURONIUM 10 MG/ML 5 ML SYRINGE IV ONE (10:21)
[2022-03-11] MEDS ORDERED: SEVOFLURANE (ULTANE) 15 ML INHAL SOLN ONE ×2 (10:21→10:24)
[2022-03-11] MEDS ORDERED: fentaNYL INJ 100 MCG/2 ML AMP ONE ×2 (10:21→12:54)
--- NOTE | 2022-03-11 10:30 | Consultation - Surgery ---
History of Present Illness History of Present Illness Patient Consulted On(edenilson/time) 03/11/22 10:24 Time Seen by Provider: 09:59 History of Present Illness Surgery asked to admit this pt regarding Cholecystitis. HPI: Pt is a 27 yo female who since has had some epigastric pain associated with nausea and vomiting. She stated she was unable to keep anything down. Rating the pain as 7-8 out of 10 at its worst, right now it is "not bad". However, pt states she was having some nausea and vomiting this am. She also states that when she went to see Dr. Richards and he "pressed on my RUQ" it caused increased pain. She actually saw me a couple of months ago for something similar, but not as bad. She had had an US which showed a gallbladder polyp but nothing acute and no stones. She was offered EGD vs Cholecystectomy at that time but wanted to talk to her family. Yesterday, she had a HIDA scan performed which showed an Ejection Fraction of 6%. When I first saw her it was occuring once a week, but this time per her primary physician "it has been smoldering for a while". Allergies and Home Medications Allergies Coded Allergies: No Known Drug Allergies (Unverified , 02/01/22) Patient Home Medication List Home Medication List Reviewed: Yes Acetaminophn/Pyril Mal/Caffein (Midol Caplet) Unknown Strength Tablet, Unknown Dose PO, (Reported) Entered as Reported by: MARQUES BRUNER on 01/31/22 0915 Past Tpedkvb-Ypfhyi-Lnyrpw Hx Patient Social History Smoking Status: Never a Smoker 2nd Hand Smoke Exposure: No Recent Hopitalizations: No Alcohol Use?: No Have you traveled recently?: No Immunizations Up To Date PED Vaccines UTD: Yes Seasonal Allergies Seasonal Allergies: No Surgeries History of Surgeries: Yes ( SECTION X2) Respiratory History of Respiratory Disorde: No Cardiovascular History of Cardiac Disorders: No Neurological History of Neurological Disord: Yes Neurological Disorders: Headaches /Migraines Reproductive System Hx Reproductive Disorders: No Sexually Transmitted Disease: No HIV/AIDS: No Female Reproductive Disorders: Denies Genitourinary History of Genitourinary Disor: Yes (PELVIC KIDNEY LEFT AREA) Genitourinary Disorders: Kidney Stones Gastrointestinal History of Gastrointestinal Di: Yes (DURING ) Gastrointestinal Disorders: Gastroesophageal Reflux, Chronic Constipation Musculoskeletal History of Musculoskeletal Dis: No Endocrine History of Endocrine Disorders: No HEENT History of HEENT Disorders: No Loss of Vision: Denies Hearing Impairment: Denies Cancer History of Cancer: No Psychosocial History of Psychiatric Problem: Yes Behavioral Health Disorders: Anxiety Integumentary History of Skin or Integumenta: Yes Skin/Integumentary Disorders: Recent Skin Changes Blood Transfusions History of Blood Disorders: No Adverse Reaction to a Blood Tr: No (N/A) Family Medical History Significant Family History: No Pertinent Family Hx, Other Conditions/Hx (Denied any DM in mother and father) Family Medial History: Patient reports no known family medical history. Review of Systems-General Constitutional: malaise, weakness EENTM: No blurred vision, No mouth swelling, No epistaxis, No throat swelling Respiratory: No cough, No dyspnea on exertion Cardiovascular: No chest pain, No palpitations Gastrointestinal: RUQ, abdominal pain, diarrhea; No hematemesis; nausea, vomiting Genitourinary: No dysuria, No frequency, No hematuria Musculoskeletal: No back pain, No joint pain Skin: No change in color, No change in hair/nails Psychiatric/Neurological: Denies Anxiety, Denies Depressed, Denies Seizure, Denies Tremors Physical Exam-General Problems Physical Exam Vital Signs Vital Signs - First Documented 03/10/22 03/10/22 18:56 19:00 Temp 37.0 Pulse 97 Resp 8 B/P (MAP) 112/73 (86) Pulse Ox 98 O2 Delivery Room Air Capillary Refill : General Appearance: WD/WN, mild distress (secondary to pain and nausea) Eyes: Bilateral Eye PERRL, Bilateral Eye EOMI HEENT: pharynx normal; No scleral icterus (R), No scleral icterus (L) Neck: non-tender, supple Respiratory: chest non-tender, lungs clear, normal breath sounds, no respiratory distress, no accessory muscle use Cardiovascular: regular rate, rhythm, no murmur Gastrointestinal: soft, no organomegaly, tenderness (RUQ and subxyphoid) Back: no CVA tenderness, no vertebral tenderness Extremities: no pedal edema, no calf tenderness, normal capillary refill 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, no motor/sensory deficits, alert, normal mood/affect, oriented x 3 Skin: normal color, warm/dry Lymphatic: no adenopathy (neck, axilla or groin) Data Review Labs Laboratory Tests 03/10/22 18:50: 03/11/22 04:40: White Blood Count 6.5, Red Blood Count 4.36, Hemoglobin 11.8, Hematocrit 37, Mean Corpuscular Volume 85, Mean Corpuscular Hemoglobin 27, Mean Corpuscular Hemoglobin Concent 32, Red Cell Distribution Width 13.1, Platelet Count 240, Mean Platelet Volume 11.3, Immature Granulocyte % (Auto) 1, Neutrophils (%) (Auto) 57, Lymphocytes (%) (Auto) 28, Monocytes (%) (Auto) 10, Eosinophils (%) (Auto) 4, Basophils (%) (Auto) 0, Neutrophils # (Auto) 3.7, Lymphocytes # (Auto) 1.8, Monocytes # (Auto) 0.6, Eosinophils # (Auto) 0.3, Basophils # (Auto) 0.0, Immature Granulocyte # (Auto) 0.0, Sodium Level 141, Potassium Level 4.0, Chloride Level 106, Carbon Dioxide Level 23, Anion Gap 12, Blood Urea Nitrogen 8, Creatinine 0.66, Estimat Glomerular Filtration Rate 123, BUN/Creatinine Ratio 12, Glucose Level 79, Calcium Level 9.0, Corrected Calcium 9.1, Total Bilirubin 0.4, Aspartate Amino Transf (AST/SGOT) 15, Alanine Aminotransferase (ALT/SGPT) 14, Alkaline Phosphatase 64, Total Protein 6.7, Albumin 3.9 Radiology Date of Exam:03/10/22 HEPATOBILIARY WITH EJECTION FR RADIOPHARMACEUTICAL: 5.3 mCi Tc-99m Choletec IV. INDICATION: Gallbladder polyps. TECHNIQUE: Anterior dynamic imaging for 45 minutes. An additional 60 minutes of imaging was performed after the patient ingested an 8 ounce can of Ensure Plus. FINDINGS: There is homogenous uptake throughout the liver. The gallbladder is visualized at 20 minutes and small bowel at 35 minutes. After the patient ingested, an 8 ounce can of Ensure Plus, there was abnormal contraction of the gallbladder with a gallbladder ejection fraction calculated to be 6%. IMPRESSION: 1. No evidence of acute cholecystitis or common duct obstruction. 2. Abnormally low gallbladder ejection fraction of 6%. This can be seen with chronic acalculous cholecystitis versus underlying biliary dyskinesia. Dictated by: Dictated on workstation # [id number] Dict: 11/03/21 1639 Trans: 03/10/221708 [id number] Interpreted by: JOSELYN VILLEGAS MD Electronically signed by: JOSELYN VILLEGAS MD 03/10/221708 Assessment/Plan Assessment/Plan Assessment/Plan Biliary Dyskinesia with possible Acute Cholecystitis I reviewed the HIDA scan myself and spoke with Dr. Richards about her care. When I talked to her this am she stated she is ready and wants her gallbladder out. I told her I think there is a very good chance this is acute; because of her pain and the HIDA findings. I think it is a good option to remove gallbladder; although she could just control symptoms and not have surgery. She was admitted last night because of the pain and kept NPO, IV fluids, IV pain meds and anti-emetics as needed. I did not start any IV ABX, but she will get a dose before surgery. I went over the risks and complications of the surgery; not limited to pain, bleeding, infection, scar, damage to bowel or bile ducts and need for further procedure. All questions answered to her and her 's satisfaction and we will proceed with surgery. MARCOS WHITING DO Mar 11, 2022 10:30
[2022-03-11] MEDS ORDERED: LIDOCAINE/EPI 1%-1:100,000 (XYLOCAINE) 10 ML ONE (10:52)
[2022-03-11] MEDS ORDERED: morphine INJ 10 MG/ML 1ML (SYR OR VIAL) ONE (11:00)
[2022-03-11] MEDS ORDERED: ceFAZolin INJECTION 1,000 MG ONE ×2 (11:27→11:30)
[2022-03-11] MEDS ORDERED: GLYCOPYRROLATE 0.2 MG/ML (ROBINUL) 2 ML VIAL ONE (11:56)
[2022-03-11] MEDS ORDERED: NEOSTIGMINE (BLOXIVERZ ) 1 MG/1ML 10 ML VIAL ONE (11:56)
--- NOTE | 2022-03-11 12:04 | Progress Note-Post Operative ---
Post-Operative Progess Note Surgeon (s)/Director Audience Marketing (s) Surgeon MARCOS WHITING DO Director Audience Marketing: [facility] [place] Pre-Operative Diagnosis Acute Cholecystitis vs Biliary dyskinesia Post-Operative Diagnosis Biliary dyskinesia Procedure & Operative Findings Date of Procedure 03/11/22 Procedure Performed/Findings PROCEDURE: Laparoscopic cholecystectomy with intraoperative cholangiogram. COMPLICATIONS: None. PROCEDURE: The patient was taken to the operating suite and was prepped and draped in sterile fashion. A surgical pause was performed. Just superior to the umbilicus, a 12 mm incision was made. Dissection was taken down to the fascia, which was then scored and grasped with a Georgette and the abdomen was then entered. An 0 Vicryl suture was placed in a [id number] fashion and a Reyes trocar was placed and secured. Pneumoperitoneum was achieved. A 5mm trochar place in the subxyphoid and 2 in the right upper quadrant. The gallbladder was then grasped at the fundus and elevated in superior direction. A second grasper was then used to take Lott's pouch infero and lateral. There were no adhesions to the gallbladder but it looked more distended than normal. The cystic duct and cystic artery were then dissected out. Clip was placed on the distal portion of the cystic duct which was then partially transected. An arrow catheter was inserted into the duct. The cholangiogram was then performed. No filing defects and contrast made its way into the duodenum. Catheter removed. Clips were placed on proximal portion of the cystic duct and then the duct was then transected. Clips were placed along the proximal and distal portion of the cystic artery which was then transected. Hook cautery was used to dissect the gallbladder from the gallbladder fossa achieving hemostasis. The gallbladder was placed in an Endobag and removed through the 12 mm trocar site. The abdomen was then reinspected. Copious amounts of irrigation were used to irrigate the abdomen and there were no signs of active bleeding. Hemostasis had been achieved. The 12 mm fascial defect was then closed with 0 Vicryl suture that had been placed in a [id number] fashion. The abdomen was then desufflated, the trocars were removed. The abdomen was then washed and dried. The skin was then closed using 4-0 Monocryl in a subcuticular fashion. The abdomen was washed and dried and Skin Affix was place over incisions. Patient tolerated the procedure well without any complications and was taken to the recovery room in stable condition. Anesthesia Type GET Estimated Blood Loss Estimated blood loss (mL): scant Specimens/Packing Specimens Removed GB and contents MARCOS WHITING DO Mar 11, 2022 12:04
[2022-03-11] MEDS ORDERED: ACHD5005 PO (12:05)
[2022-03-11] MEDS ORDERED: ONDA4TAB11 SL (12:05)
--- NOTE | 2022-03-11 12:07 | Discharge Inst-Surgical ---
Discharge Inst-Surgical Depart Medication/Instructions New, Converted or Re-Newed RX: Transmitted to Pharmacy Patient Instructions Follow up Appt: Make appointment for 1 week. [phone] Instructions: No lifting greater than 20 pounds. No strenuous activity. May shower in 24 hours, no tub bath or soaking. Use incentive spirometer at home as directed. No Smoking Skin/Wound Care: May remove bandages in am. You need to leave the Dermabond on incision it will fall off on it's own. Symptoms to Report: Appetite Changes, Extremity Discoloration, Numbness/Tingling, Swelling Increased, Bleeding Excessive, Eyesight Changes, Pain Increased, Urine Color Change, Constipation(Persistent), Fever over 101 degree F, Pain/Pressure in chest, Urinating Difficulty, Cough Up/Vomit Blood, Heart Beat Irreg/Pounding, Pain/Pressure in jaw, Cramps in feet or legs, Lightheadedness, Pain/Pressure in shoulder, Diarrhea(Persistent), Memory Changes Suddenly, Questions/Concerns, Weight gain consecutive days, Dizziness/Fainting, Nausea/Vomiting, Shortness of Breath, Weight gain over 2 pounds If questions or concerns contact your physician Or seek help at emergency department. Activity Activity as Tolerated: Yes Activity Instructions: Avoid Stress to Incision Driving Instructions: No Driving/Refer to Dr. Finch Discharge Diet: Avoid Fatty Foods, Low Fat/Low Cholesterol Diet After 24 Hours: Clear Liquid if Nauseous If Any Problems/Questions/Issu: Contact Your Physician, Go to Emergency Room Skin/Wound Care Infection Signs and Symptoms: Increased Redness, Foul Odor of Wound, Increased Drainage, Skin Itchy or Has a Rash, Increased Swelling, Temperature Above 101 F Wound Care Comment: heating pad to shoulder or neck tonight for pain Bathing Instructions: Shower Stitches/[place]/Dermabond Dis: Dermabond Ice Pack: Ice On and Off Site MARCOS WHITING DO Mar 11, 2022 12:07
--- NOTE | 2022-03-11 12:14 | Diagnostic Imaging Report ---
INDICATION: Intraoperative cholangiogram. COMPARISON: None available. IMPRESSION: Cine images were submitted showing cannulization of residual cystic duct with contrast filling the common bile duct which is normal in caliber and spillage into the 2nd portion of the duodenum. There was also extravasation at the site of injection, likely from incomplete seal. Air Kerma is 5.39 mGy. Please see procedure report for more details. Dictated by: Dictated on workstation # [id number]
--- NOTE | 2022-03-12 12:15 | Anesthesia-General Post-Op ---
General Patient Condition Mental Status/LOC: Same as Preop Cardiovascular: Satisfactory Nausea/Vomiting: Absent Respiratory: Satisfactory Pain: Controlled Complications: Absent Post Op Complications Complications None Follow Up Care/Instructions Patient Instructions None needed. Anesthesia/Patient Condition Patient Condition Patient is doing well, no complaints, stable vital signs, no apparent adverse anesthesia problems. No complications reported per nursing. EMMA MEDEROS CRNA Mar 12, 2022 12:15
== END 2022-03-11 14:42 | disposition home or self-care (01) ==
LOC: SDC 18:29 → 4TH 18:29 → UNDOADMOB 18:29 → UNDODISOB 03-11 14:42 → SDC 03-11 14:42
PROVIDERS: ATTEND Surgery
DX: K81.1 Chronic cholecystitis (principal)
CPT/HCPCS: 36415; 76000; 80053; 84703; 85025; 87081; 87635; 88304; 96361; 96374

== ENCOUNTER → 2022-03-10 | Outpatient (CLI) | payer BC ==
[~2022-03-10] MED LIST changes: +CATHETER FLUSH 10 ML SYR IVP PRN; +ONDA4TAB11 SL
[2022-03-10 14:03] LABS: BASOPHILS % (AUTO) 0 % (0-10); EOSINOPHILS # (AUTO) 0.2 10^3/uL (0.0-0.3); EOSINOPHILS % (AUTO) 2 % (0-10); HEMATOCRIT 39 % (35-52); HEMOGLOBIN 12.5 g/dL (11.5-16.0); LYMPHOCYTES # (AUTO) 1.4 10^3/uL (1.0-4.0); LYMPHOCYTES % (AUTO) 15 % (12-44); MEAN CORPUSCULAR HEMOGLOBIN 27 pg (25-34); MEAN CORPUSCULAR HGB CONC 32 g/dL (32-36); MEAN CORPUSCULAR VOLUME 84 fL (80-99); MEAN PLATELET VOLUME 11.2 fL (9.0-12.2); MONOCYTES # (AUTO) 0.5 10^3/uL (0.0-1.0); MONOCYTES % (AUTO) 6 % (0-12); NEUTROPHILS # (AUTO) 6.8 10^3/uL (1.8-7.8); NEUTROPHILS % (AUTO) 76 % (42-75); PLATELET COUNT 284 10^3/uL (130-400); WHITE BLOOD COUNT 8.9 10^3/uL (4.3-11.0)
[2022-03-10 14:21] LABS: ERYTHROCYTE SEDIMENTATION RATE 11 MM/HR (0-20)
[2022-03-10 14:29] LABS: ALBUMIN 4.4 GM/DL (3.2-4.5); POTASSIUM 3.8 MMOL/L (3.6-5.0)
[2022-03-10 14:30] LABS: CALCIUM 9.2 MG/DL (8.5-10.1)
[2022-03-10 14:32] LABS: TOTAL PROTEIN 7.1 GM/DL (6.4-8.2)
[2022-03-10 14:33] LABS: BILIRUBIN,TOTAL 0.5 MG/DL (0.1-1.0)
[2022-03-10 14:35] LABS: CREATININE SERUM 0.7 MG/DL (0.60-1.30)
--- NOTE | 2022-03-10 16:43 | Diagnostic Imaging Report ---
RADIOPHARMACEUTICAL: 5.3 mCi Tc-99m Choletec IV. INDICATION: Gallbladder polyps. TECHNIQUE: Anterior dynamic imaging for 45 minutes. An additional 60 minutes of imaging was performed after the patient ingested an 8 ounce can of Ensure Plus. FINDINGS: There is homogenous uptake throughout the liver. The gallbladder is visualized at 20 minutes and small bowel at 35 minutes. After the patient ingested, an 8 ounce can of Ensure Plus, there was abnormal contraction of the gallbladder with a gallbladder ejection fraction calculated to be 6%. IMPRESSION: 1. No evidence of acute cholecystitis or common duct obstruction. 2. Abnormally low gallbladder ejection fraction of 6%. This can be seen with chronic acalculous cholecystitis versus underlying biliary dyskinesia. Dictated by: Dictated on workstation # [id number]
== END ==
LOC: CARD 14:00
PROVIDERS: ATTEND Internal Medicine
DX: K82.4 Cholesterolosis of gallbladder (principal)
CPT/HCPCS: 78227; 80053; 83690; 85025; 85652; A9537; 36415